=== PATIENT | female | born 1935 | race Caucasian/White ===

== ENCOUNTER → 2016-04-11 | Outpatient (CLI) | payer OTHER ==
--- NOTE | 2016-04-11 17:04 | US ---
Bilateral Duplex Carotid Sonography Clinical Indications: Follow-up carotid plaque. Check for progression. (I65.23) Technique: The cervical portions of the carotid and vertebral arteries were imaged and interrogated by color and pulsed Doppler. Spectral analysis was performed. Findings: Comparison to prior study of May 04, 2014. Right Carotid: The common carotid artery, bifurcation, and origin of the internal and external carot id artery are well imaged. Mild noncalcified plaque is present mid right CCA anteriorly stable in albertina earance. Doppler velocity estimates and color Doppler spectra are normal. Peak ICA systolic veloci ty = 81 cm/sec and diastolic velocity = 23 cm/sec. No evidence of flow-limiting stenosis. There is st able mild partially calcified plaque at the carotid bulb and proximal ICA. Left Carotid: The common carotid artery, bifurcation, and origin of the internal and external caroti d artery are well imaged. Mild noncalcified plaque is noted anteriorly in the CCA without encroachmen t upon the lumen. Doppler velocity estimates and color Doppler spectra are normal. Peak ICA systolic velocity = 75 cm/sec and peak diastolic velocity = 18 cm/sec. No evidence of flow-limiting stenosis. Minimal partially calcified plaque is present at the carotid bulb without encroachment upon the limi gurpreet. Vertebral Arteries: Antegrade flow is shown by pulsed Doppler of each vertebral artery. Incidental complex cystic thyroid nodules as well as simple cystic nodules seen. This has been presen t previously as well. Impression: 1. No evidence of flow-limiting carotid stenosis. No significant change since prior study. 2. Bilateral complex cystic thyroid nodules once again noted. Measurement of carotid stenosis is based on velocity parameters that correlate the residual internal carotid diameter with [place] Symptomatic Carotid Endarterectomy Trial (NASCET) based stenosis levels.
== END ==
LOC: CIMAGING 11:01
PROVIDERS: ATTEND Surgery
DX: I65.23 Occlusion and stenosis of bilateral carotid arteries (principal); E04.2 Nontoxic multinodular goiter
CPT/HCPCS: 93880-PO

== ENCOUNTER → 2016-04-17 | Outpatient (CLI) | payer OTHER ==
--- NOTE | 2016-04-17 14:12 | DX ---
Abdomen Two Views 1318 Hours Indication: Pain and constipation. Technique: Upright and supine views. Comparison: CT abdomen and pelvis dated August 04, 2008. Findings: Moderate to large volume of stool is retained throughout the left and right hemicolon. No d ilated loops of small or large bowel. No organomegaly or mass effect. Surgical clips in the right upp er quadrant are unchanged. Dextrocurvature and moderate multilevel degenerative disk and facet arthro bina are unchanged. Impression: Moderate constipation. No evidence of bowel obstruction.
== END ==
LOC: CIMAGING 13:00
PROVIDERS: ATTEND Surgery
DX: R10.9 Unspecified abdominal pain (principal); K59.00 Constipation, unspecified
CPT/HCPCS: 74020-PO

== ENCOUNTER → 2016-08-05 | Outpatient (CLI) | payer OTHER | LOC: CIMAGING 12:40 | DX: Z12.31 Encounter for screening mammogram for malignant neoplasm of breast (principal); Z85.3 Personal history of malignant neoplasm of breast; R92.1 Mammographic calcification found on diagnostic imaging of breast | CPT/HCPCS: G0202 ==

== ENCOUNTER → 2016-08-22 | Outpatient (CLI) | payer OTHER | LOC: CIMAGING 12:56 | PROVIDERS: ATTEND Internal Medicine Hematology & Oncology | DX: Z12.39 Encounter for other screening for malignant neoplasm of breast (principal); R92.0 Mammographic microcalcification found on diagnostic imaging of breast; Z85.3 Personal history of malignant neoplasm of breast | CPT/HCPCS: G0206 ==

== ENCOUNTER → 2016-10-16 | Outpatient (CLI) | payer OTHER | LOC: CIMAGING 12:05 | PROVIDERS: ATTEND Internal Medicine Hematology & Oncology | DX: R06.02 Shortness of breath (principal); I51.7 Cardiomegaly | CPT/HCPCS: 71020-PO ==

== ENCOUNTER 2016-10-31 14:15 | Inpatient (IN) | payer OTHER ==
[2016-10-31] MEDS ORDERED: D50W 25 GM/50 ML SYR IVP PRN (15:47)
[2016-10-31] MEDS ORDERED: FUROSEMIDE 40 MG/4 ML VIAL IVP ONE (16:14)
[2016-10-31] MEDS ORDERED: ACETAMINOPHEN 325 MG TAB PO PRN (16:15)
[2016-10-31] MEDS ORDERED: TEMAZEPAM 15 MG CAP PO PRN (16:15)
[2016-10-31] MEDS ORDERED: NITROGLYCERIN 0.4 MG BTL SL PRN (16:15)
--- NOTE | 2016-10-31 16:24 | PDCARPN ---
Cardiology Progress Note Chief Complaint: new onset acute sCHF Assessment/Plan: Assessment: 81F PMH T2DM, htn, dyslipidemia, PVD s/p CEA 2011, breast CA with XRT/resection 2013, found to have LVEF 20-25%. New onset of dyspnea over past few months which has progressed to dyspnea at rest. Office note from today acts as H&P. #. NYHA FC IV with LVEF 20-25% on echo: start IV lasix reducing Losartan dose to allow room to titrate Carvedilol L/RHC for further evaluation #. DM: hold Metformin but continue home Lantus SSI with BS AC/HS #. PVD: followed by Dr. Villeda #. htn: follow #. FRANKY/CPAP: continue CPAP while hospitalized #. Inpt status: required for further delineation of new disease state with R/ LHC and titration of medications and use of IV lasix #. DVT ppx: on hold until after catheterization 10/31/16 16:18 Objective: Vital Signs (8 Hrs) Temp Pulse Resp BP Pulse Ox 10/31/16 15:17 97.9 F 111 H 17 134/85 H 96 Intake/Output (24 Hrs) 10/30/16 10/31/16 11/01/16 05:59 05:59 05:59 Other: Weight 63.957 kg ICD10 Worksheet Patient Problems: Problems Problem Status Onset Breast cancer metastasized to axillary lymph node Acute
[2016-10-31] MEDS ORDERED: NON-FORMULARY NEW DRUG (Polyvinyl Alcohol/Povidone/Pf [Refresh Classic Eye Drops] 1 EACH) OP PRN (16:43)
[2016-10-31] MEDS ORDERED: TEARS/DEXTRAN 70/HYPROMELLOSE 15 ML OPHT.BTL EACHEYE PRN (16:50)
[2016-10-31 16:55] LABS: % IMMATURE GRANULYOCYTES 0.3 % (0.0-1.1); ABSOLUTE IMMATURE GRANULOCYTES 0.02 10^3/uL (0.00-0.10); ADD DIFF? NO; ADD MORPH? NO; ADD SCAN? NO; ATYPICAL LYMPHOCYTE FLAG 10 (0-99); FRAGMENT RBC FLAG 0 (0-99); HEMATOCRIT 40.8 % (38.0-47.0); HEMOGLOBIN 13.4 g/dL (12.6-16.3); LEFT SHIFT FLG 0 (0-99); LIPEMIA HEMOLYSIS FLAG 80 (0-99); MEAN CELL HEMOGLOBIN 33.1 pg (27.9-34.1); MEAN CELL HEMOGLOBIN CONCENTR. 32.8 g/dL (32.4-36.7); MEAN CELL VOLUME 100.7 fL (81.5-99.8); MEAN PLATELET VOLUME 11.5 fL (8.7-11.7); PLATELET CLUMPS FLAG 0 (0-99); PLATELET COUNT 200 10^3/uL (150-400); RED BLOOD CELL COUNT 4.05 10^6/uL (4.18-5.33); RED CELL DISTRIBUTION WIDTH 12.6 % (11.5-15.2)
[2016-10-31] MEDS ORDERED: D10W 250 ML PRN HYPOGLYCEMIA IV (17:00)
[2016-10-31] MEDS: GLIMEPIRIDE 2 MG TAB PO SCH (17:15)
[2016-10-31] MEDS: CARVEDILOL 3.125 MG TAB PO SCH (17:15)
[2016-10-31] MEDS: ASPIRIN 81 MG CHEWABLE TAB PO SCH (17:17)
[2016-10-31 17:33] LABS: ALANINE AMINOTRANSFERASE 36 IU/L (9-52); ALBUMIN 4.1 g/dL (3.5-5.0); ALKALINE PHOSPHATASE 91 IU/L (38-126); ANION GAP 12 mEq/L (8-16); ASPARTATE AMINOTRANSFERASE 25 IU/L (14-46); BILIRUBIN,TOTAL 0.6 mg/dL (0.1-1.4); CARBON DIOXIDE 27 mEq/l (22-31); CHLORIDE 101 mEq/L (97-110); GLOMERULAR FILTRATION RATE 53; GLUCOSE 76 mg/dL (70-100); POTASSIUM 3.6 mEq/L (3.5-5.2); SODIUM 140 mEq/L (134-144); TOTAL PROTEIN 7.1 g/dL (6.3-8.2)
[2016-10-31 17:42] LABS: % SATURATION 14 % (20-55); TOTAL IRON BINDING CAPACITY 351 ug/dL (260-490)
[2016-10-31] MEDS: INSULIN LISPRO 100 UNIT/ML SC SCH (18:04)
[2016-10-31] MEDS ORDERED: VENLAFAXINE XR 150 MG CAP PO SCH (21:00)
[2016-10-31] MEDS ORDERED: INSULIN ASPART 15 UNIT SC SCH (21:00)
[2016-10-31] MEDS: INSULIN GLARGINE 100 UNITS/ML SYRINGE SC SCH (21:52)
[2016-10-31] MEDS: VENLAFAXINE XR 150 MG CAP PO SCH (21:52)
[2016-10-31] MEDS: INSULIN REGULAR HUMAN 100 UNIT/ML SC SCH (23:47)
[2016-11-01 04:08] LABS: % IMMATURE GRANULYOCYTES 0.3 % (0.0-1.1); ABSOLUTE IMMATURE GRANULOCYTES 0.02 10^3/uL (0.00-0.10); ADD DIFF? NO; ADD MORPH? NO; ADD SCAN? NO; ATYPICAL LYMPHOCYTE FLAG 0 (0-99); FRAGMENT RBC FLAG 0 (0-99); HEMOGLOBIN 13.1 g/dL (12.6-16.3); LEFT SHIFT FLG 0 (0-99); LIPEMIA HEMOLYSIS FLAG 80 (0-99); MEAN CELL HEMOGLOBIN 32.4 pg (27.9-34.1); MEAN CELL HEMOGLOBIN CONCENTR. 32.8 g/dL (32.4-36.7); MEAN PLATELET VOLUME 11.4 fL (8.7-11.7); PLATELET CLUMPS FLAG 10 (0-99); PLATELET COUNT 202 10^3/uL (150-400); RED BLOOD CELL COUNT 4.04 10^6/uL (4.18-5.33); RED CELL DISTRIBUTION WIDTH 12.5 % (11.5-15.2)
[2016-11-01 04:17] LABS: INR 1.11 (0.83-1.16); PROTIME(PATIENT) 14.2 SEC (12.0-15.0)
[2016-11-01 04:18] LABS: APTT 29.5 SEC (23.0-38.0)
[2016-11-01 04:20] LABS: ANION GAP 14 mEq/L (8-16); CALCIUM 9.5 mg/dL (8.5-10.4); CARBON DIOXIDE 24 mEq/l (22-31); CHLORIDE 102 mEq/L (97-110); CHOLESTEROL 127 mg/dL (140-220); CHOLESTEROL/HDL RATIO 3.34 RATIO (1.00-4.44); CREATININE 0.9 mg/dL (0.6-1.0); GLOMERULAR FILTRATION RATE > 60; GLUCOSE 98 mg/dL (70-100); HIGH DENSITY LIPOPROTEIN 38 mg/dL (40-85); LDL/HDL RATIO 1.63 RATIO (1.00-3.22); LOW DENSITY LIPOPROTEIN 62 mg/dL (80-100); MAGNESIUM 1.3 mg/dL (1.6-2.3); NON-HIGH DENSITY LIPOPROTEIN 89 mg/dL (90-129); POTASSIUM 3.2 mEq/L (3.5-5.2); SODIUM 140 mEq/L (134-144); TRIGLYCERIDE 136 mg/dL (35-135); VERY LOW DENSITY LIPOPROTEINS 27 mg/dL (8-25)
[2016-11-01] MEDS ORDERED: diphenhydrAMINE 25 MG CAP PO ONE ×2 (06:00→09:00)
[2016-11-01] MEDS ORDERED: DIAZEPAM 5 MG TAB PO ONE ×2 (06:00→09:00)
[2016-11-01] MEDS ORDERED: ASPIRIN EC 325 MG TAB PO ONE ×2 (06:00→09:00)
[2016-11-01] MEDS ORDERED: NS 1,000 ML IV ONE (06:00)
[2016-11-01] MEDS ORDERED: PROTOCOL MAGNESIUM 1 DOSE IV PRN (08:42)
[2016-11-01] MEDS ORDERED: PROTOCOL POTASSIUM 1 DOSE MISC PRN (08:42)
[2016-11-01] MEDS ORDERED: LIDOCAINE 1% 300 MG/30 ML SDV ONE (08:45)
[2016-11-01] MEDS ORDERED: IOPAMIDOL (ISOVUE-370) 150 ML BTL IV ONE (08:46)
[2016-11-01] MEDS ORDERED: MIDAZOLAM 2 MG/2 ML VIAL ONE (08:46)
[2016-11-01] MEDS ORDERED: fentaNYL 100 MCG/2 ML INJ ONE (08:46)
[2016-11-01] MEDS ORDERED: POTASSIUM CL 10 MEQ TAB PO ONE ×2 (08:53→20:19)
[2016-11-01] MEDS ORDERED: MAGNESIUM SULF 2 GM/WATER 50 ML IV ONE (08:54)
[2016-11-01] MEDS ORDERED: LOSARTAN POTASSIUM 50 MG TAB PO SCH (09:00)
[2016-11-01] MEDS ORDERED: VENLAFAXINE XR 150 MG CAP PO SCH (09:00)
--- NOTE | 2016-11-01 09:00 | PDCARPN ---
Cardiology Progress Note Assessment/Plan: Assessment/plan: 81-year-old female with multiple cardiac risk factors including diabetes, hypertension, carotid arterial disease status post carotid endarterectomy in 2012. She is admitted from [facility] with several weeks of new onset dyspnea and found to have an abnormal echocardiogram with an ejection fraction of 20%. She has been started on Coreg, her losartan has been continued, IV Lasix has been initiated. 1. Acute systolic heart failure: Etiology unknown. TSH normal. Iron studies not suggestive of hemochromatosis. Would be concerned about coronary disease with her multiple risk factors. Diagnostic right and left heart catheterization today. Continue aspirin and statin. Beta-imelda has been added. Continue angiotensin receptor imelda. Continue IV Lasix. Replete electrolytes. 2. Nonsustained VT. Cooler tachycardia on telemetry: Replete electrolytes. Continue Coreg. She may require LifeVest therapy during her medical optimization time period. 3. Diabetes: She is on her usual home medications except for metformin which has been on hold for heart catheterization. 4. Hypertension: Currently well controlled. 5. Dyslipidemia: On statin. LDL at goal. 6. Peripheral vascular disease: History of carotid endarterectomy. Followed by Dr. Villeda. Continue medical management. 7. History of breast cancer: She had radiation, surgical resection, and is now on anastrozole. Based on Dr. Reddy's notes, I do not see that she had potentially cardiotoxic chemotherapy. 8. Sleep apnea: Continue CPAP. 11/01/16 09:04 Subjective: Kim notes slightly improved dyspnea with diuresis overnight. She complains of chronic nausea without vomiting, abdominal pain or diarrhea. Reviewed/Discussed With: family, multidisciplinary team Objective: Vital Signs (8 Hrs) Temp Pulse Resp BP Pulse Ox 11/01/16 08:00 36.8 C 83 16 107/70 93 11/01/16 03:50 36.7 C 86 20 103/65 90 L Intake/Output (24 Hrs) 10/31/16 11/01/16 11/02/16 05:59 05:59 05:59 Intake Total 200 Output Total 1600 Balance -1400 Intake: Oral (ml) 200 Output: Urine (ml) 1600 Toilet 1600 Other: Weight 61.3 kg No acute distress. Lying flat in bed. JVP less than 10. Regular rate and rhythm without murmur rub or gallop Lungs clear auscultation bilaterally without wheezes rhonchi or rale Abdomen soft nontender nondistended without bruits masses or hepatosplenomegaly Extremities are warm and well perfused without cyanosis clubbing or edema Result Diagrams: 11/01/16 03:17 11/01/16 03:17 Telemetry: NSR. Frequent PVCs with ventricular couplets and a 4 beat run of nonsustained VT ICD10 Worksheet Patient Problems: Problems Problem Status Onset Breast cancer metastasized to axillary lymph node Acute
[2016-11-01] MEDS: CARVEDILOL 3.125 MG TAB PO SCH (09:01)
[2016-11-01] MEDS: INSULIN LISPRO 100 UNIT/ML SC SCH ×3 (09:02→19:08)
[2016-11-01] MEDS: GLIMEPIRIDE 2 MG TAB PO SCH ×2 (09:11→19:08)
[2016-11-01] MEDS: POTASSIUM Cl (KCl) 100 ML IV SCH ×4 (09:12→19:29)
[2016-11-01] MEDS: ASPIRIN 81 MG CHEWABLE TAB PO SCH (09:23)
[2016-11-01] MEDS: VENLAFAXINE XR 150 MG CAP PO SCH ×2 (09:31→20:35)
[2016-11-01] MEDS: ROSUVASTATIN CALCIUM 10 MG TAB PO SCH (09:34)
[2016-11-01] MEDS: ANASTROZOLE 1 MG TAB PO SCH (09:34)
[2016-11-01] MEDS ORDERED: DOPamine/DEXTROSE/250 ML BAG IV ONE (11:31)
[2016-11-01] MEDS ORDERED: ATROPINE SULFATE 1 MG/10 ML SYR IVP PRN (12:14)
--- NOTE | 2016-11-01 12:22 | PDDXCAT ---
Diagnostic Cath Note - . Date: 11/01/16 Cake Puller: Nita Indication: other (new onset systolic CHF) - Procedure Access: right groin Procedure: left heart catheterization, coronary angiography, left ventriculogram , right heart catheterization - Materials Left Heart Cath size: 6F Left Heart Cath materials: standard multipack (JL4, JR4, pigtail) Right Heart Cath size: 7F Right Heart Cath materials: PWP catheter - Findings-Left Heart Catheterization LM: normal LAD: diffusely diseased. Serial 70% lesions throughout. D1 90% ostial LCX: diffusely diseased; 60% mid vessel. Diffusely diseased OM1, serial 50% RCA: dominant. RCA distal 70% at bifurcation to PDA EDP: 22 LVEF: 20 Wall motion: global diffuse HK - Findings-Right Heart Catheterization RA: 11 RV: 35/7 PA: 36/13 mean 22 PAOP: 18 AO: 80/44 CO: 2.88 L/min CI: 1.81 L/min/m2 Complications: hypotension requiring dopamine Estimated blood loss: <50ml Closure method: Angioseal Assessment: 1. Diffuse and severe LAD/Diagonal disease. 2. Moderate LCx/OM and RCA disease. 3. Severe CMP and elevated LV filling pressures. 4. Hypotension Plan: CT surgical consult Transfer to ICU for dopamine titration and diuresis Hold coreg Patient Problems: Problems Problem Status Onset Breast cancer metastasized to axillary lymph node Acute
[2016-11-01] MEDS ORDERED: ONDANSETRON 4 MG/2 ML VIAL ONE (12:31)
[2016-11-01] MEDS: ONDANSETRON 4 MG/2 ML VIAL IVP PRN ×2 (13:16→18:24)
[2016-11-01] MEDS ORDERED: ALBUMIN 25% 100 ML SOLN IV ONE (14:24)
[2016-11-01] MEDS ORDERED: NOREPINEPHRINE/NS 4 MG/500 ML BAG IV ONE (14:24)
[2016-11-01 14:40] LABS: % IMMATURE GRANULYOCYTES 0.3 % (0.0-1.1); ABSOLUTE IMMATURE GRANULOCYTES 0.02 10^3/uL (0.00-0.10); ADD DIFF? NO; ADD MORPH? NO; ADD SCAN? NO; ATYPICAL LYMPHOCYTE FLAG 0 (0-99); FRAGMENT RBC FLAG 0 (0-99); HEMATOCRIT 36.8 % (38.0-47.0); LEFT SHIFT FLG 0 (0-99); LIPEMIA HEMOLYSIS FLAG 80 (0-99); MEAN CELL HEMOGLOBIN 32.6 pg (27.9-34.1); MEAN CELL HEMOGLOBIN CONCENTR. 32.6 g/dL (32.4-36.7); MEAN PLATELET VOLUME 11.4 fL (8.7-11.7); PLATELET CLUMPS FLAG 20 (0-99); PLATELET COUNT 205 10^3/uL (150-400); RED BLOOD CELL COUNT 3.68 10^6/uL (4.18-5.33); RED CELL DISTRIBUTION WIDTH 12.3 % (11.5-15.2)
[2016-11-01] MEDS: FUROSEMIDE 40 MG/4 ML VIAL IVP SCH ×2 (14:51→14:56)
[2016-11-01] MEDS: INSULIN GLARGINE 100 UNITS/ML SYRINGE SC SCH ×2 (14:51→20:42)
--- NOTE | 2016-11-01 15:07 | CPEKG ---
Heart Rate: 85 RR Interval: 706 P-R Interval: 208 QRSD Interval: 108 QT Interval: 412 QTC Interval: 490 P Greenwood: 60 QRS Greenwood: -62 T Wave Greenwood: 111 EKG Severity - ABNORMAL ECG - EKG Impression: SINUS RHYTHM EKG Impression: MULTIPLE VENTRICULAR PREMATURE COMPLEXES EKG Impression: LEFT ANTERIOR FASCICULAR BLOCK EKG Impression: PROBABLE LVH WITH SECONDARY REPOL ABNRM EKG Impression: BORDERLINE PROLONGED QT INTERVAL Electronically Signed By: Patric Ochoa 01-Nov-2016 22:21:37
[2016-11-01] MEDS ORDERED: ALBUMIN 25% 100 ML IV ONE (15:15)
--- NOTE | 2016-11-01 15:24 | GCON ---
[f rep st] CONSULTATION CRITICAL CARE CONSULT DATE OF CONSULTATION: 11/01/2016 HISTORY OF PRESENT ILLNESS: The patient is an 81-year-old female with a history of carotid disease, hypertension, hyperlipidemia, who was found to have a dilated cardiomyopathy on echocardiogram, for workup of 3-4 months of exertional dyspnea. Her ejection fraction was found to be 15% to 20% on ec ho done yesterday, so she was admitted to [facility] today for cardiac catheterization. Apparently, her bl ood pressure dropped in the middle of the cath, she was found to have severe coronary artery disease , and is likely to require bypass grafting. In any case, she was brought to the intensive care unit , and has had a labile blood pressure since. She did require dopamine as high as 15 mcg, but still had a blood pressure as low as the 70s. She is asymptomatic and denies lightheadedness, presyncope, chest pain or shortness of breath. She has had no pain other than chronic back pain, but nothing h as been different otherwise. REVIEW OF SYSTEMS: She denies any recent infections, cough, sputum production, or hemoptysis, or ch kim in her medications. PAST MEDICAL HISTORY: 1. Breast cancer, diagnosed in 2013, treated with lumpectomy and radiation therapy. 2. Carotid artery disease. 3. Depression. 4. Diabetes. 5. Hypertension. 6. Hyperlipidemia. 7. Pancreatitis. 8. Peripheral vascular disease. 9. Obstructive sleep apnea. Reportedly on CPAP. 10. Meniere disease. 11. Iron deficiency anemia. PAST SURGICAL HISTORY: 1. Lumpectomy, as described above. 2. Cataracts. 3. Cholecystectomy. 4. Hysterectomy. SOCIAL HISTORY: She is a nonsmoker. No alcohol or IV drug use. FAMILY HISTORY: Noncontributory at this time. CURRENT MEDICATIONS: Include Tylenol, Arimidex, aspirin, carvedilol which was given at 0900, Lasix which has not been given, Amaryl, Lantus, Humalog, Cozaar, Zofran, Crestor, Restoril, Effexor. ALLERGIES: Penicillin. EXAM: VITAL SIGNS: She has been afebrile, as I said, blood pressure was 70/40 at the time I was ca lled into the room, despite dopamine drip at 15 mcg. She is currently at about 90/50, heart rate 83 , appears to be in sinus rhythm, with premature ventricular contractions, but no ST elevations at le ast on her monitor. Respirations 16, oxygen saturation 93% on 2 L. GENERAL: She was an obese woman, who was awake and alert, and oriented x3, and able to speak in full sentences without using accessory muscles for león thing. HEENT: Pupils equally round and reactive to light. Nonicteric and noninjected. Mucous mem branes are moist without erythema or exudate. NECK: Supple without adenopathy or jugular vein dist ention. Breath sounds were clear to auscultation bilaterally without wheezes, rubs or rales. HEART : Regular rate and rhythm, but sounds were somewhat distant. I did not detect any rubs or gallops. ABDOMEN: Soft, nontender, nondistended, without hepatosplenomegaly. EXTREMITIES: Show no clubbing, cyanosis, or edema. Her right groin site is clean and intact withou t evidence of hematoma. There is no costovertebral angle tenderness. NEUROLOGIC: Nonfocal, includ ing cranial nerves, deep tendon reflexes. SKIN: Warm and dry without evidence of rash. OBJECTIVE DATA: Includes a white count of 7.5, hematocrit 36.8, platelets at 205. Labs from this m orning showed essentially normal BMP, except for a potassium of 3.2, which has been replaced. ASSESSMENT AND PLAN: 1. Hypotension. I suspect it is hypovolemia. She did have a small pericardial effusion on her pre vious echo from yesterday, but appears to have had an acute drop, likely related to the sedation inv olved with the procedure. I will start with albumin short-term and see how she responds to that. T he dopamine does not appear to be working at this concentration, I will change that to Levophed and monitor as best that we can. An EKG and chest x-ray are also pending at this time. I can send a tr oponin, but my concern for an acute coronary syndrome is quite low, particularly in the absence of s ymptoms. I do not see any evidence of sepsis or adrenal insufficiency either. We are working on not ifying cardiology, and we will consider a repeat echocardiogram to see if her pericardial effusion h as gotten any worse. 2. Obstructive sleep apnea. She should continue with her CPAP that she uses at home and oxygen as needed. 3. Coronary artery disease. She will eventually require a CT surgery consult. A total of about 40 minutes of critical care time was required for this patient with life-threatenin g hypotension. /[id number]/MODL
[2016-11-01] MEDS ORDERED: NOREPINEPHRINE/NS 500 ML IV SCH (15:30)
[2016-11-01 15:39] LABS: TROPONIN I 0.045 ng/mL (0.000-0.034)
[2016-11-01] MEDS: INSULIN REGULAR HUMAN 100 UNIT/ML SC SCH ×2 (16:10→20:46)
--- NOTE | 2016-11-01 18:09 | GCON ---
[f rep st] CONSULTATION DATE OF CONSULTATION: 11/01/2016 Patient was seen at the request of Dr. Moya with the patient's permission. The patient's daughter and son were present. IMPRESSION: 1. Ischemic cardiomyopathy with severe 3-vessel disease and class 3 congestive heart failure on admission. 2. Mild obesity. 3. Breast cancer with radiation therapy, 3 years without recurrence. 4. Type 2 diabetes. 5. Carotid artery disease, status post carotid endarterectomy without residual obstruction. 6. Hypertension, controlled. RECOMMENDATIONS: This patient should undergo coronary artery revascularization. Her risk is increased because of age, low ejection fraction and previous carotid disease. Overall risk is in the 6% range. Risk for stroke is 3% to 5%. The patient and daughter and son were in agreement for surgery. I will meet with the in the morning to discuss it as well. CHIEF COMPLAINT: A 77-year-old female who had progressive dyspnea on exertion. She was referred by her oncologist to follow serially on a periodic basis for breast cancer without known recurrence. He referred her to Cardiology who performed an echocardiogram which revealed ejection fraction of 20%. She was sent to the hospital with no known history of that and admitted for evaluation. Because of her dyspnea on exertion she underwent diagnostic left heart catheterization after beginning medications for congestive heart failure. During the catheterization she became somewhat hypotensive, likely due to sedation, diuresis and new onset of beta imelda exposure and was started on dopamine. She was transferred to the ICU where she is now currently stable. Catheterization revealed severe diffuse 3-vessel disease with small vessels and ejection fraction of 15% to 20%. The LVEDP was 18. PREVIOUS SURGERIES: Include carotid endarterectomy, hysterectomy, and cholecystectomy. MEDICATIONS: On admission were metformin, Lantus, NovoLog, Protonix, _ and Crestor. She also was started on losartan and Coreg. ALLERGIES: Penicillin and Vicodin. SOCIAL HISTORY: She never smoked. She drinks alcohol on an occasional social basis and is retired. She has a large well-informed supportive family. REVIEW OF SYSTEMS: All 10 systems were reviewed and except for chief complaint unremarkable. PHYSICAL EXAMINATION: GENERAL: A slightly overweight, elderly female in no apparent distress. Fully alert, very pleasant and cooperative. NECK: She has a well-healed endarterectomy scar. She has bilateral bruits. HEART: Rate is regular without murmur. LUNGS: Clear. ABDOMEN: Soft, nontender. Bowel sounds are active. RECTAL AND GENITAL: Deferred. NEUROLOGICAL: Grossly intact. Please see catheterization report for details. /[id number]/MODL MTDD
[2016-11-01] MEDS ORDERED: ALBUMIN 5% 250 ML IV ONE (18:30)
[2016-11-01 19:26] LABS: POTASSIUM 3.3 mEq/L (3.5-5.2)
[2016-11-02 05:15] LABS: HEMATOCRIT 36.1 % (38.0-47.0); HEMOGLOBIN 11.8 g/dL (12.6-16.3); MEAN CELL HEMOGLOBIN 33.1 pg (27.9-34.1); MEAN CELL HEMOGLOBIN CONCENTR. 32.7 g/dL (32.4-36.7); MEAN CELL VOLUME 101.1 fL (81.5-99.8); RED BLOOD CELL COUNT 3.57 10^6/uL (4.18-5.33); RED CELL DISTRIBUTION WIDTH 12.3 % (11.5-15.2)
[2016-11-02 05:24] LABS: ANION GAP 14 mEq/L (8-16); CALCIUM 9.1 mg/dL (8.5-10.4); CARBON DIOXIDE 26 mEq/l (22-31); CHLORIDE 100 mEq/L (97-110); CREATININE 1.1 mg/dL (0.6-1.0); GLOMERULAR FILTRATION RATE 48; GLUCOSE 119 mg/dL (70-100); MAGNESIUM 1.9 mg/dL (1.6-2.3); POTASSIUM 4.2 mEq/L (3.5-5.2); SODIUM 140 mEq/L (134-144)
[2016-11-02] MEDS ORDERED: IPRATROPIUM/ALBUTEROL 3 ML DEYVIAL ONE (08:00)
[2016-11-02] MEDS ORDERED: ENOXAPARIN 40 MG/0.4 ML SYR SC SCH (09:00)
[2016-11-02] MEDS: ANASTROZOLE 1 MG TAB PO SCH (09:13)
[2016-11-02] MEDS: ROSUVASTATIN CALCIUM 10 MG TAB PO SCH (09:13)
[2016-11-02] MEDS: ASPIRIN 81 MG CHEWABLE TAB PO SCH (09:13)
[2016-11-02] MEDS: VENLAFAXINE XR 150 MG CAP PO SCH ×2 (09:13→20:32)
[2016-11-02] MEDS: FUROSEMIDE 40 MG/4 ML VIAL IVP SCH (09:14)
[2016-11-02] MEDS: INSULIN GLARGINE 100 UNITS/ML SYRINGE SC SCH ×2 (09:14→22:19)
[2016-11-02] MEDS: GLIMEPIRIDE 2 MG TAB PO SCH ×2 (09:14→19:09)
--- NOTE | 2016-11-02 09:14 | PDINTPN ---
Bilingual Customer Service Specialist Progress Note Assessment/Plan: Assessment/plan: 81 F found to have EF 15-20% on echo for dyspnea work-up, taken to cath 11/01 and found severe CAD but developed hypotension during cath and recovered in ICU. Her BP was labile but had no evidence of sepsis or acute coronary syndrome at the time. She responded well to fluid challenge (so not likely adrenal) and never needed pressors. * Hypotension- most consistent with volume. Responded well to albumin without causing CHF symptoms or O2 requirement. No evidence of blood loss, sepsis, ACS, adrenal. * FRANKY- used CPAP overnight. She should bring this with her for her upcoming CABG * CAD- planning CABG in the near future with Dr. Bustillo. * DM- currently stable; can resume home meds Subjective: feels well and slept without difficulty Objective: Vital Signs Temp Pulse Resp BP Pulse Ox 36.5 C 77 17 98/59 L 100 11/02/16 05:00 11/02/16 07:00 11/02/16 07:00 11/02/16 07:00 11/02/16 07:00 Laboratory Results 11/02/16 05:00 11/02/16 05:00 11/01/16 11/02/16 11/03/16 05:59 05:59 05:59 Intake Total 200 1342 Output Total 1600 925 Balance -1400 417 PT 14.2 SEC (12.0-15.0) 11/01/16 03:17 INR 1.11 (0.83-1.16) 11/01/16 03:17 Physical Exam - Physical Exam General Appearance: WD/WN, alert, obese EENT: PERRL/EOMI Neck: supple Respiratory: lungs clear, normal breath sounds, No respiratory distress Cardiac/Chest: normal peripheral pulses, regular rate, rhythm, No edema Abdomen: non-tender, soft, No distended Skin: normal color, warm/dry Lymphatic: no adenopathy Extremities: normal inspection, No pedal edema Neuro/Psych: alert, normal mood/affect, oriented x 3 ICD10 Worksheet Patient Problems: Problems Problem Status Onset Breast cancer metastasized to axillary lymph node Acute
[2016-11-02] MEDS: INSULIN LISPRO 100 UNIT/ML SC SCH ×3 (09:15→19:06)
[2016-11-02] MEDS: INSULIN REGULAR HUMAN 100 UNIT/ML SC SCH ×2 (09:15→22:19)
[2016-11-02] MEDS ORDERED: ALBUMIN 5% 250 ML BOTTLE IV ONE (10:33)
--- NOTE | 2016-11-02 10:53 | PDCARPN ---
Cardiology Progress Note Assessment/Plan: Assessment/plan: 81-year-old female with multiple cardiac risk factors including diabetes, hypertension, carotid arterial disease status post carotid endarterectomy in 2011. She is admitted from [facility] with several weeks of new onset dyspnea and found to have an abnormal echocardiogram with an ejection fraction of 20%. She has been started on Coreg, her losartan has been continued, IV Lasix has been initiated. 1. Acute systolic heart failure: ischemic CMP. 3VD with worse LAD diseae on cath 11/01. Continue aspirin and statin. Beta-imelda was not tolerated due to hypotension. Continue angiotensin receptor imelda. Hold IV Lasix. Replete electrolytes. 2. Multivessel CAD: plan for CABG 11/03 3. Nonsustained VT. Replete electrolytes. Did not tolerate coreg. Revascularization 4. Diabetes: She is on her usual home medications except for metformin which has been on hold for heart catheterization. 5. Hypertension: now hypotensive likely due to diuresis/BB. 6. Dyslipidemia: On statin. LDL at goal. 7. Peripheral vascular disease: History of carotid endarterectomy. Followed by Dr. Villeda. Continue medical management. 8. History of breast cancer: She had radiation, surgical resection, and is now on anastrozole. Based on Dr. Reddy's notes, I do not see that she had potentially cardiotoxic chemotherapy. 9. Sleep apnea: Continue CPAP. 11/02/16 10:57 Subjective: No CP. Mild SOB Reviewed/Discussed With: family, multidisciplinary team, other (Dr. Yu and Dr. Bustillo) Objective: Vital Signs (8 Hrs) Temp Pulse Resp BP Pulse Ox 11/02/16 07:00 77 17 98/59 L 100 11/02/16 06:00 81 14 91/49 L 97 11/02/16 05:00 36.5 C 85 15 102/63 95 11/02/16 03:00 89 15 102/54 L 99 Intake/Output (24 Hrs) 11/01/16 11/02/16 11/03/16 05:59 05:59 05:59 Intake Total 200 1342 Output Total 1600 925 Balance -1400 417 Intake: Oral (ml) 200 500 IV Intake (ml) 100 IV Infused (ml) 742 Albumin 25% 100 ml @ As 600 Directed IV ONCE ONE Rx#: [id number] DOPamine/DEXTROSE 250 ml 142 @ Titrate IV CONT NICOLLE Rx# :[id number] Output: Urine (ml) 1600 925 Bedpan 925 Toilet 1600 Other: Weight 61.3 kg NAD JVP 12 RRR no m/r/g Rales left base No edema right groin no hematoma, ecchymoses, or bruit Result Diagrams: 11/02/16 05:00 11/02/16 05:00 Cardiac Labs: Cardiac Lab Results (72 Hrs) 11/01/16 15:00 Troponin I 0.045 H Telemetry: SR with frequent V ectopy including V triplet ICD10 Worksheet Patient Problems: Problems Problem Status Onset Breast cancer metastasized to axillary lymph node Acute
[2016-11-02] MEDS ORDERED: METOPROLOL TARTRATE 5 MG/5 ML INJ IVP ONE (11:45)
[2016-11-02] MEDS ORDERED: ALBUMIN 5% 250 ML IV ONE (12:00)
[2016-11-02 19:14] LABS: POTASSIUM 3.6 mEq/L (3.5-5.2)
[2016-11-02] MEDS ORDERED: POTASSIUM CL 10 MEQ TAB PO ONE (20:35)
[2016-11-02] MEDS ORDERED: CHLORHEXIDINE GLUC HIBICLENS 118 ML BTL TP SCH (21:00)
[2016-11-02] MEDS: MUPIROCIN 2% 22 GM OINT NS SCH (22:20)
--- NOTE | 2016-11-03 01:23 | GOP ---
[f rep st] OPERATIVE REPORT DATE OF OPERATION: 11/02/2016 SURGEON: Parish Lewis MD DATA REPORTING ANALYST: None. ANESTHESIA: Local anesthetic. PREOPERATIVE DIAGNOSIS: Need for ongoing fluids and medications. POSTOPERATIVE DIAGNOSIS: Need for ongoing fluids and medications. PROCEDURE PERFORMED: Ultrasound-guided right internal jugular central catheter placement. FINDINGS: Successful cannulation of the right IJ via Seldinger technique. Triple-lumen CVC successfully placed. SPECIMENS: None. ESTIMATED BLOOD LOSS: 5 cc. DESCRIPTION OF PROCEDURE: The patient was greeted in the intensive care unit. After explaining the risks, benefits, alternatives, consent was signed. Prior to proceeding, a [employer] time-out was performed. Her right neck was then prepped and draped in typical sterile fashion. I identified the right internal jugular vein with ultrasound guidance and successfully cannulated it. Prior to this, I anesthetized the area with 1% lidocaine. Once successfully in the vein, I ran my guidewire, which went smooth, and then I serially dilated and placed my central venous catheter within the vein. It withdrew and flushed appropriately. It was attached to the skin with an interrupted silk suture. A Biopatch and a sterile dressing were placed. The patient tolerated the procedure well without any intraoperative complications. DRAINS: None. /[id number]/MODL MTDD
[2016-11-03 02:35] LABS: HEMOGLOBIN A1C 7.3 % (4.0-6.0)
[2016-11-03 04:53] LABS: ANION GAP 12 mEq/L (8-16); CALCIUM 8.9 mg/dL (8.5-10.4); CARBON DIOXIDE 28 mEq/l (22-31); CHLORIDE 98 mEq/L (97-110); GLOMERULAR FILTRATION RATE 53; GLUCOSE 53 mg/dL (70-100); POTASSIUM 3.8 mEq/L (3.5-5.2); SODIUM 138 mEq/L (134-144)
[2016-11-03] MEDS ORDERED: niCARdipine/NACL/200 ML BAG IV ONE (06:35)
[2016-11-03] MEDS ORDERED: MILRINONE/DEXTROSE/100 ML BAG IV ONE (06:35)
[2016-11-03] MEDS ORDERED: ALBUMIN 5% 250 ML BOTTLE IV ONE (06:35)
[2016-11-03] MEDS ORDERED: CALCIUM CHLORIDE 1 GM/10 ML INJ ONE (06:35)
[2016-11-03] MEDS ORDERED: AMINOCAPROIC ACID 5 GM/20 ML VIAL ONE ×3 (06:35→13:18)
[2016-11-03] MEDS ORDERED: NA BICARBONATE 50 MEQ/50 ML VIAL ONE (06:35)
[2016-11-03] MEDS ORDERED: LIDOCAINE 2% 100 MG/5 ML SYR ONE (06:35)
[2016-11-03] MEDS ORDERED: DOPamine/DEXTROSE/250 ML BAG IV ONE (06:35)
[2016-11-03] MEDS ORDERED: POTASSIUM Cl (KCl) 20 MEQ/50 ML BAG IV ONE (06:35)
[2016-11-03] MEDS ORDERED: PROTAMINE SULFATE 50 MG/5 ML VIAL IVP ONE (06:35)
[2016-11-03] MEDS ORDERED: methylPREDNISolone SOD SUCC 1 GM/8 ML VIAL ONE (06:36)
[2016-11-03] MEDS ORDERED: HEPARIN 10,000 UNIT/10 ML MDV ONE (06:36)
[2016-11-03] MEDS ORDERED: ADENOSINE 6 MG/2 ML VIAL ONE (06:36)
[2016-11-03] MEDS ORDERED: AMIODARONE HCL 150 MG/3 ML VIAL ONE (06:36)
[2016-11-03] MEDS ORDERED: CITRATE DEXTROSE SOLN 500 ML BAG ONE (06:36)
[2016-11-03] MEDS ORDERED: MAGNESIUM SULFATE 1 GM/2 ML VIAL ONE (06:36)
[2016-11-03] MEDS ORDERED: POTASSIUM Cl (KCl) 50 ML IV ONE (08:07)
[2016-11-03] MEDS: GLIMEPIRIDE 2 MG TAB PO SCH (08:40)
[2016-11-03] MEDS: INSULIN LISPRO 100 UNIT/ML SC SCH ×2 (08:40→14:16)
[2016-11-03] MEDS: INSULIN REGULAR HUMAN 100 UNIT/ML SC SCH (08:41)
[2016-11-03] MEDS: ASPIRIN 81 MG CHEWABLE TAB PO SCH (08:41)
[2016-11-03] MEDS: INSULIN GLARGINE 100 UNITS/ML SYRINGE SC SCH (08:41)
[2016-11-03] MEDS: ANASTROZOLE 1 MG TAB PO SCH (08:41)
[2016-11-03] MEDS: MUPIROCIN 2% 22 GM OINT NS SCH ×2 (08:42→23:41)
[2016-11-03] MEDS: VENLAFAXINE XR 150 MG CAP PO SCH (08:43)
[2016-11-03] MEDS: ROSUVASTATIN CALCIUM 10 MG TAB PO SCH (08:43)
--- NOTE | 2016-11-03 11:27 | PDANEPAE ---
ANE History of Present Illness 81 yo for CABG Ischemic cardiomyopathy, EF 15% ANE Past Medical History - Cardiovascular History Hx Hypertension: Yes Hx Arrhythmias: No Hx Chest Pain: Yes Hx Coronary Artery / Peripheral Vascular Disease: No Hx CHF / Valvular Disease: No Hx Palpitations: No Cardiovascular History Comment: rhuematic fever as child-benign heart murmur. - Pulmonary History Hx COPD: No Hx Asthma/Reactive Airway Disease: No Hx Recent Upper Respiratory Infection: No Hx Oxygen in Use at Home: No Hx Sleep Apnea: Yes Pulmonary History Comment: sleep apnea-CPAP - Neurologic History Hx Cerebrovascular Accident: No Hx Seizures: No Hx Dementia: No - Endocrine History Hx Diabetes: Yes Endocrine History Comment: Type 2-insulin&oral meds - Renal History Hx Renal Disorders: No - Liver History Hx Hepatic Disorders: No - Neurological & Psychiatric Hx Hx Neurological and Psychiatric Disorders: Yes Neurological / Psychiatric History Comment: Anxiety - Cancer History Hx Cancer: Yes Cancer History Comment: R breast. - Congenital Disorder History Hx Congenital Disorders: No - GI History Hx Gastrointestinal Disorders: Yes Gastrointestinal History Comment: GERD-med. - Other Health History Other Health History: arthritis in spine, hands. R knee weakness due to diabetes. 15 yo FX Cspine from AA chronic HAs since then - Chronic Pain History Chronic Pain: Yes (daily MCKEON.) - Surgical History Prior Surgeries: 2011-L carotid endartorectomy. 2006-lypoma removed. 1982-GB& appi removed. 1980-partial hyterectomy. 2010-bilateral cataracts. ANE Review of Systems - Exercise capacity Exercise capacity: <4 METS ANE Patient History - Allergies Allergies/Adverse Reactions: Penicillins Allergy (Intermediate, Verified 10/31/16 16:40) Hives hydrocodone Allergy (Verified 10/31/16 16:40) Vomiting propoxyphene [From Darvocet-N] Allergy (Verified 10/31/16 16:40) Vomiting - Home Medications Home medications: home medication list seen and reviewed Home Medications: Cholecalciferol Vit D3 [Vitamin D3 (OTC)] 2,000 units PO DAILY 09/29/13 [Last Taken 10/31/16] Glimepiride [Amaryl 2 MG (RX)] 4 mg PO BIDMEAL 09/29/13 [Last Taken 10/31/16] Insulin Aspart [novoLOG] 15 unit SC BID 09/29/13 [Last Taken 09/28/13] Insulin Glargine [Lantus 100 UNITS/ML (RX)] 20 units SC BID 09/29/13 [Last Taken 09/29/13] Losartan/Hydrochlorothiazide [Hyzaar 100-12.5 Tablet] 1 tab PO DAILY 09/29/13 [ Last Taken 10/31/16] Polyvinyl Alcohol/Povidone/Pf [Refresh Classic Eye Drops] 1 each OP BID PRN [Last Taken Unknown] Rosuvastatin Calcium [Crestor 10mg (RX)] 10 mg PO DAILY 09/29/13 [Last Taken ] metFORMIN HCL [Glucophage] 500 mg PO BIDMEAL 09/29/13 [Last Taken 10/31/16] Anastrozole [Arimidex 1 mg (*)] 1 mg PO DAILY 10/31/16 [Last Taken 10/31/16] Venlafaxine HCl [Venlafaxine HCl ER] 150 mg PO BID 10/31/16 [Last Taken 10/31/16 ] - Anes Hx Anes Hx: no prior problems - Smoking Hx Smoking Status: Never smoked - Family Anes Hx Family Hx Anesthesia Complications: son difficulty awakening ANE Labs/Vital Signs - Labs Result Diagrams: 11/02/16 05:00 11/03/16 03:28 - Vital Signs Blood Pressure: 105/69 Heart Rate: 92 Respiratory Rate: 12 O2 Sat (%): 100 Height: 5 ft 1 in Weight: 62.5 kg ANE Physical Exam - Airway Neck exam: FROM Mallampati Score: Class 2 Mouth exam: normal dental/mouth exam - Pulmonary Pulmonary: no respiratory distress - Cardiovascular Cardiovascular: regular rate and rhythym - ASA Status ASA Status: IV ANE Anesthesia Plan Anesthesia Plan: general endotracheal anesthesia Lines/Monitors: arterial line, central line, GISSEL
[2016-11-03] MEDS ORDERED: MIDAZOLAM 2 MG/2 ML VIAL IVP ONE (11:56)
[2016-11-03] MEDS ORDERED: fentaNYL 100 MCG/2 ML INJ ONE (11:58)
[2016-11-03] MEDS ORDERED: REMIFENTANIL HCL 1 MG VIAL ONE (11:58)
[2016-11-03] MEDS ORDERED: ROCURONIUM 100 MG/10 ML VIAL ONE (11:59)
[2016-11-03] MEDS ORDERED: PROPOFOL/EMULSION 500 MG/50 ML BOTTLE IV ONE ×2 (11:59→16:41)
[2016-11-03] MEDS ORDERED: SODIUM BICARBONATE 20 MEQ, LIDOCAINE 1% 10 ML in NORMOSOL-R 1,000 ML MISC ONE (12:00)
[2016-11-03] MEDS ORDERED: PHENYLEPHRINE HCL 50 MG in NS 250 ML IV ONE (12:00)
[2016-11-03] MEDS ORDERED: AMINOCAPROIC ACID 5 GM/20 ML VIAL IV ONE (12:00)
[2016-11-03] MEDS ORDERED: LIDOCAINE 1% 5 ML SDV ID PRN (12:00)
[2016-11-03] MEDS ORDERED: NS 1,000 ML IV ONE (12:00)
[2016-11-03] MEDS ORDERED: NOREPINEPHRINE BITARTRATE 16 MG in NS 250 ML IV ONE (12:00)
[2016-11-03] MEDS ORDERED: MUPIROCIN 2% 22 GM OINT NS ONE (12:00)
[2016-11-03] MEDS ORDERED: ceFAZolin 2 GM/DEXTROSE 100 ML IV ONE (12:00)
[2016-11-03] MEDS ORDERED: CITRATE DEXTROSE SOLN 500 ML BAG MISC ONE (12:00)
[2016-11-03] MEDS ORDERED: niCARdipine/NACL 200 ML IV ONE (12:00)
[2016-11-03] MEDS ORDERED: INSULIN REGULAR HUMAN 100 UNIT in NS 100 ML IV ONE (12:00)
[2016-11-03] MEDS ORDERED: MANNITOL 25% 12.5 GM/50 ML VIAL IV ONE (12:00)
[2016-11-03] MEDS ORDERED: VERAPAMIL 5 MG, NITROGLYCERIN 2.5 MG, HEPARIN 500 UNIT, SODIUM BICARBONATE 0.2 MEQ in L... MISC ONE (12:00)
--- NOTE | 2016-11-03 12:14 | PDHPUP ---
History & Physical Update H&P update statement: This history and physical update is based on an assessment of the patient which was completed after admission or registration (within 24 hours), but prior to the surgery/procedure. H&P changes: no CP, less dyspnea ("I can talk")
[2016-11-03] MEDS ORDERED: MIDAZOLAM 2 MG/2 ML VIAL ONE (12:21)
[2016-11-03] MEDS ORDERED: PAPAVERINE HCL 60 MG/2 ML SDV ONE (12:30)
[2016-11-03] MEDS ORDERED: VERAPAMIL 5 MG/2 ML VIAL ONE (12:30)
[2016-11-03] MEDS: ceFAZolin 1 GM VIAL ONE ×2 (12:46→14:01)
[2016-11-03] MEDS ORDERED: NITROGLYCERIN/D5W 50 MG/250 ML BOTTLE IV ONE (14:18)
[2016-11-03] MEDS ORDERED: MAGNESIUM SULF 2 GM/WATER 50 ML BAG IV ONE (14:49)
[2016-11-03] MEDS ORDERED: MINERAL OIL 10 ML VIAL ONE (16:04)
[2016-11-03] MEDS ORDERED: ALBUTEROL HFA ANES ONLY 200 PUFFS/8.5 GM MDI IH ONE (16:56)
--- NOTE | 2016-11-03 17:46 | POSTOPPROG ---
Post Op Note Date of Operation: 11/03/16 Surgeon: Emeterio Bustillo Broadcasting Equipment Mechanic: Mich Anesthesiologist: Varun Anesthesia: GET(General Endotracheal) Pre-op Diagnosis: ICM, ASHD, CHF class 3 Procedure: CAB4 nguyen-Lad, SVG-Dg,PLCX, PLRCA,Lig IMTCH, EVH, IABP Inf/Abcess present in the surg proc area at time of surgery?: No EBL: 100-500
[2016-11-03] MEDS ORDERED: MAGNESIUM HYDROXIDE 30 ML UDCUP PO PRN (17:54)
[2016-11-03] MEDS ORDERED: MAGNESIUM SULF 2 GM/WATER 50 ML IV ONE (17:54)
[2016-11-03] MEDS ORDERED: PANTOPRAZOLE SODIUM 40 MG in NS 100 ML IV ONE (17:54)
[2016-11-03] MEDS ORDERED: POLYETHYLENE GLYCOL 3350 17 GM PKT PO PRN (17:54)
[2016-11-03] MEDS ORDERED: ACETAMINOPHEN 650 MG SUPP PR PRN (17:54)
[2016-11-03] MEDS ORDERED: ONDANSETRON DISINTEGRATING 4 MG TAB PO PRN (17:54)
[2016-11-03] MEDS ORDERED: CEPACOL LOZENGE PO PRN (17:54)
[2016-11-03] MEDS ORDERED: LACTULOSE 20 GM/30 ML UDCUP PO PRN (17:54)
[2016-11-03] MEDS ORDERED: SODIUM CL NASAL 45 ML BTL EACHNARE PRN (17:54)
[2016-11-03] MEDS ORDERED: D50W 25 GM/50 ML SYR IVP PRN (17:54)
[2016-11-03] MEDS ORDERED: MEPERIDINE 25 MG/ML SYR IVP PRN (17:54)
[2016-11-03] MEDS ORDERED: BISACODYL 10 MG SUPP PR PRN (17:54)
[2016-11-03] MEDS ORDERED: NS 1,000 ML IV SCH (18:00)
[2016-11-03] MEDS ORDERED: INSULIN REGULAR HUMAN 100 UNIT in NS 100 ML IV SCH (18:00)
[2016-11-03] MEDS ORDERED: ALBUMIN 5% 500 ML BOTTLE IV ONE (18:37)
[2016-11-03 18:51] LABS: CALCULATED OXYGEN SATURATION 96 % (92-95)
--- NOTE | 2016-11-03 19:20 | POSTANESTH ---
Post Anesthetic Evaluation Cardiovascular Status: Tx Hyper/Hypo-tension Respiratory Status: Other, See Comment Level of Consciousness/Mental Status: Unconscious Pain Control: Adequate, Prn Tx Ordered Nausea/Vomiting Control: Adequate, Prn Tx Ordered Complications Possibly Related to Anesthesia: None Noted (in icu on vent, iabp and multiple pressors. no apparent comp from geta)
[2016-11-03] MEDS: POTASSIUM Cl (KCl) 50 ML IV PRN ×2 (19:21→21:16)
--- NOTE | 2016-11-03 19:36 | GOP ---
[f rep st] OPERATIVE REPORT DATE OF OPERATION: 11/03/2016 SURGEON: Emeterio Bustillo DO EXPORT ADMINISTRATOR: ANNALEE Li ANESTHESIOLOGIST: Alicja Najera MD PREOPERATIVE DIAGNOSIS: 1. Ischemic cardiomyopathy with severe left ventricular dysfunction. 2. Unstable angina with arteriosclerotic heart disease. 3. Congestive heart failure class 3. POSTOPERATIVE DIAGNOSIS: 1. Ischemic cardiomyopathy with severe left ventricular dysfunction. 2. Unstable angina with arteriosclerotic heart disease. 3. Congestive heart failure class 3. PROCEDURE PERFORMED: 1. Coronary artery bypass grafting x4 with the left internal mammary artery to the left anterior de scending, saphenous vein graft to the diagonal, saphenous vein graft to the posterior lateral circum flex, and saphenous vein graft to the posterolateral branch of the right. 2. AtriClip to the left atrial appendage. 3. Endoscopic vein harvest of both legs. 4. Left common femoral artery intra-aortic balloon pump. FINDINGS: Patient presented with shortness of breath and evidence of congestive heart failure. On echo, she was noted to have ejection fraction of 15%. Subsequent diagnostic evaluation revealed sev ere triple-vessel disease with diffuse small vessel disease. After consultation with the patient an d family, they are agreeable to surgery including full support postoperatively if necessary to get h er through the procedure. Consent was obtained. DESCRIPTION OF PROCEDURE: She was taken to the operating room, intubated, monitoring lines were alia arian. She was prepped and draped in sterile classical manner. Sternotomy was performed. Transesoph ageal echo confirmed ejection fraction approximately 15% with increase in systolic dimensions and gl obal hypokinesis. The mammary was harvested, which was a good quality 2 mm vessel. The vein was sutton rvested from both thighs, which were 2.8 mm, but good quality vessel, appropriately matched to the p atient's coronaries. She was heparinized, cannulated. Cardiopulmonary bypass was begun and cardiop legic arrest was obtained with antegrade cardioplegia, topical hypothermia and systemic cooling. Initially, the circumflex vessel was grafted. It was a 2 mm vessel with some posterior wall plaquin g. The vein was brought off the ascending aorta with continuous running 6-0 Prolene after completio n of the distal anastomosis. We then proceeded with grafting a very poor quality diagonal which fallon sured 1.5 mm. The vein was also brought off the ascending aorta in the standard fashion. I then pr oceeded with grafting in the mid LAD. It was a 1.6 to 1.8 mm diffusely diseased, poor quality vesse l. The mammary was tacked to the epicardium. Rewarming was begun. An AtriClip was placed on the l eft atrial appendage, flush. We then grafted the posterolateral branch of the right, which was actu ally the patient's best vessel. It was a 2.5 mm vessel with a proximal anastomosis completed with 6 -0. The cross-clamp was then removed with suction on the ascending aortic vent. When no spontaneous car diac activity was noted to resume, we then rested the patient on pump for some time because of globa l hypokinesis and poor ventricular function. With increasing large doses of inotropic support and l eft common femoral intraaortic balloon pump, she was successfully weaned from bypass. Heparin was r eversed with protamine. The cannula was removed and oversewn. Four pacing wires and 2 pleural, 1 m ediastinal drain were placed. The thymic fat and pericardium were closed. The chest was closed in standard fashion. Patient was returned to ICU in critical condition. /[id number]/MODL
[2016-11-03] MEDS: fentaNYL 100 MCG/2 ML INJ IVP PRN ×2 (19:45→22:46)
[2016-11-03] MEDS: DEXMEDETOMIDINE HCL 400 MCG in NS 100 ML IV SCH (20:32)
[2016-11-03] MEDS: ALBUMIN 5% 250 ML IV PRN (22:05)
[2016-11-03] MEDS: ceFAZolin 2 GM/DEXTROSE 100 ML IV SCH (22:06)
[2016-11-03] MEDS: DOBUTamine/DEXTROSE 250 ML IV SCH (22:46)
[2016-11-04 00:29] LABS: CALCULATED OXYGEN SATURATION 92 % (92-95); O2 CONCENTRATIION 50 % (0-100)
[2016-11-04] MEDS: ALBUMIN 5% 250 ML IV PRN (00:30)
[2016-11-04] MEDS: fentaNYL 100 MCG/2 ML INJ IVP PRN ×7 (01:23→10:30)
[2016-11-04] MEDS: DEXMEDETOMIDINE HCL 400 MCG in NS 100 ML IV SCH ×2 (02:56→21:41)
[2016-11-04] MEDS: DOBUTamine/DEXTROSE 250 ML IV SCH ×2 (04:43→13:08)
[2016-11-04 05:04] LABS: BASE EXCESS -4.2 mEq/L (-2.5-2.5); BICARBONATE 20 mEq/L (22-26); MEASURED OXYGEN SATURATION 96 % (92-95); PCO2 38 mmHg (34-38); PO2 85 mmHg (65-75); TCO2 22 mEq/L (23-27)
[2016-11-04 05:05] LABS: ASSIST CONTROL YES; END TIDAL CO2 39
[2016-11-04 05:06] LABS: O2 CONCENTRATIION 40 % (0-100); P/F RATIO 213 RATIO; TOTAL RATE 12
[2016-11-04 05:10] LABS: % IMMATURE GRANULYOCYTES 0.5 % (0.0-1.1); ABSOLUTE IMMATURE GRANULOCYTES 0.05 10^3/uL (0.00-0.10); ADD DIFF? NO; ADD MORPH? NO; ADD SCAN? NO; ATYPICAL LYMPHOCYTE FLAG 0 (0-99); FRAGMENT RBC FLAG 0 (0-99); HEMATOCRIT 28.1 % (38.0-47.0); HEMOGLOBIN 9.4 g/dL (12.6-16.3); LEFT SHIFT FLG 10 (0-99); LIPEMIA HEMOLYSIS FLAG 80 (0-99); MEAN CELL HEMOGLOBIN 31.1 pg (27.9-34.1); MEAN CELL HEMOGLOBIN CONCENTR. 33.5 g/dL (32.4-36.7); MEAN PLATELET VOLUME 11.9 fL (8.7-11.7); PLATELET CLUMPS FLAG 0 (0-99); RED BLOOD CELL COUNT 3.02 10^6/uL (4.18-5.33); RED CELL DISTRIBUTION WIDTH 16.9 % (11.5-15.2)
[2016-11-04] MEDS: ceFAZolin 2 GM/DEXTROSE 100 ML IV SCH ×3 (05:13→21:04)
[2016-11-04 05:18] LABS: PLATELET COUNT 45 10^3/uL (150-400)
[2016-11-04 05:33] LABS: ANION GAP 13 mEq/L (8-16); CALCIUM 8.5 mg/dL (8.5-10.4); CARBON DIOXIDE 22 mEq/l (22-31); CHLORIDE 107 mEq/L (97-110); CREATININE 0.9 mg/dL (0.6-1.0); GLOMERULAR FILTRATION RATE > 60; GLUCOSE 130 mg/dL (70-100); POTASSIUM 4.1 mEq/L (3.5-5.2); SODIUM 142 mEq/L (134-144)
[2016-11-04 05:41] LABS: PLATELET ESTIMATE DECREASED (ADEQ)
--- NOTE | 2016-11-04 06:40 | SOAPPROG ---
SOAP Progress Note Assessment/Plan: Assessment: POD#1 CABG x 4 (GONZALEZ-LAD, SV-D1, SV-PLC, SV-PLR), EVH bilat thighs, prophylactic AtriClip ligation left atrial appendage, RCF IABP 1:1 Severe CAD with severe LVSD/ISCM - No significant change in LVEF post 4 vessel revasc. Secondary prevention w ASA, BB, and statin when appropriate. Acute systolic and diastolic CHF, class IV - Globally hypokinetic LV, w preop LVEF 15-20%, LVEDP 22. Medically stabilized with pressor support and diuresis prior to surgery. Successful separation from CPB on combo vasoactive support and IABP. Stable hemodynamics overnight on fixed dose levo/NTG/dobut. Adequately diuresing moderate fluid overload with stable renal fx. No sustained tachyarrhythmias. AF prophylaxis with BB as allowed by BP. Staggered reintroduction of heart failure regimen as tolerated. Hx NSVT preop - Postop rhythm ST with occ PVCs and a couple 4-6 beat runs NSVT. Lifevest prior to discharge. ICD eval in 3 mo. Acute postoperative respiratory insufficiency - Kept intubated and sedated for IABP tolerance. No apparent focal neuro deficits. Vent management per pulm. Acute expected blood loss anemia w thrombocytopenia - Stable s/p 3u PRBC intraop. No evidence active bleeding. Precautionary HIT to be sent. Care with VTE prophylaxis while platelets depressed. DM2, controlled - By preop A1c of 7.3%. Postop hyperglycemia managed with insulin gtt. Transition to basal/prandial/SSI as per ICU. Hx breast CA - Anastrozole to resume when appropriate Plan: Wean IABP. 1:4, then 1:8, then pull. Wean drips 4 hrs after IABP out. Dobut to CI > 2. NTG to 5 mcg for latisha perfusion. Levo to MAP > 70. Colloid prn PAD < 16. Vent management per pulm. Ck HIT Ab. 11/04/16 06:54 Subjective: Soundly sedated on vent. Currently not responsive but reportedly arousable to name and able to follow simple commands earlier this am. Objective: Vital Signs Temp Pulse Resp BP Pulse Ox 36.8 C 110 H 12 105/50 L 96 11/04/16 06:00 11/04/16 06:00 11/04/16 06:00 11/04/16 06:00 11/04/16 06:00 Laboratory Results 11/04/16 04:55 11/04/16 04:55 11/03/16 11/04/16 11/05/16 05:59 05:59 05:59 Intake Total 1400 1853 Output Total 700 1460 Balance 700 393 PT 14.2 SEC (12.0-15.0) 11/01/16 03:17 INR 1.11 (0.83-1.16) 11/01/16 03:17 Sedated on Precedex. Rhythm ST. MAPs > 70 on Levo 4 mcg, NTG 20 mcg, Dobut 20 mcg, IABP 1:1. PAs 40s-50s/18-20, CI 3 range, SVO2 70s. SpO2 96% on Vent FIO2 40%. Minimal CTOP. CXR-> no PTX, mild pulm vasc congestion, right basilar atelectasis Balanced I/Os. Labs ok except for lower than expected plt count Physical Exam - Physical Exam General Appearance: no apparent distress Respiratory: lungs clear (grossly), other (Blakes x 3 to pleurovac, serosang drainage, no AL) Cardiac/Chest: regular rate, rhythm, tachycardia, other (Sternum grossly stable. Sternotomy CDI) Abdomen: normal bowel sounds, soft Skin: warm/dry Extremities: swelling (1+ gen), other (Left groin soft. Feet pink and warm. Bilat leg wraps intact) ICD10 Worksheet Patient Problems: Problems Problem Status Onset Acute blood loss anemia Acute S/P CABG x 4 Acute ~11/03/16 CAD, multiple vessel Chronic Dilated cardiomyopathy Chronic
[2016-11-04] MEDS: MUPIROCIN 2% 22 GM OINT NS SCH (08:09)
[2016-11-04] MEDS: ASPIRIN 81 MG CHEWABLE TAB PO SCH (09:41)
[2016-11-04] MEDS ORDERED: LIDOCAINE 1% 300 MG/30 ML SDV ONE ×2 (09:54→16:32)
[2016-11-04] MEDS ORDERED: ATROPINE SULFATE 1 MG/10 ML SYR ONE (09:59)
--- NOTE | 2016-11-04 12:23 | CPIP ---
[f rep st] INVASIVE CARDIAC PROCEDURE DATE OF PROCEDURE: 11/04/2016 NAME OF PROCEDURE: Intra-aortic balloon pump removal. INDICATIONS: Per the request of Cardiothoracic Surgery, we have been asked to remove patient's intr a-aortic balloon pump. The patient is 1 day postop from CABG. She has been hemodynamically stable. S he has been titrated down to 1:8 assisted pumping on balloon pump and has been tolerating well. Betty ent still remains sedated and on ventilator. DESCRIPTION OF PROCEDURE: After evaluating today's laboratory studies, the left groin was prepped f or removal with ChloraPrep. One percent lidocaine was infiltrated into the subcu tissue prior to rem oving. Blood withdrew both on balloon pump catheter and left femoral artery sheath. Balloon pump was removed with sheath intact. Manual pressure held for a total of 25 minutes, hemostasis obtained. Rj mackenzie's left dorsal pedal pulse was +1 post removal. A FemoStop was applied at 30 mmHg (sandbag pres sure) with instructions for ICU staff to keep on for the next 120 minutes. They have been told to mo nitor the groin site and distal pulses every 15 times 4, every 30 times 2, and every hour times 4. Katey ralph's final heart rate was 99, sinus rhythm on the monitor, blood pressure 100/49. No apparent co mplications. /[id number]/MODL
--- NOTE | 2016-11-04 14:58 | PDINTPN ---
Supervisor Dimension Warehouse Progress Note Assessment/Plan: Assessment: Status post open heart surgery, CABG. Blood pressure remains borderline. On dobutamine, Levophed, and nitroglycerin. IABP pulled. Postoperative respiratory insufficiency. Secondary to congestive heart failure , atelectasis. On ventilator, unable to tolerate CPAP weans at this time. Will advance slowly, extubate as soon as possible. May need low-dose sedation overnight. Acute blood-loss anemia. Hematocrit 28. Follow. Chest tube drainage slowing down. History of obstructive sleep apnea. History of multiple medical problems including hypertension, hyperlipidemia, PVD etc. Metabolic: On replacement protocols, insulin coverage. DVT: On aspirin, Lovenox on hold. GI prophylaxis: Pantoprazole. Plan: Continue ventilatory support. Wean as tolerated, with CPAP trials as she wakes up. Decreased sedation and pain medications as much as possible for respiratory status. Follow laboratory, x-ray. Wean norepinephrine, dobutamine as tolerated. 45 minutes of clinic time spent directly with the patient. Discussed with the patient's family, respiratory, nursing, CVS, and the ICU multi disciplinary team. Subjective: Sedated, on the ventilator. Intra-aortic balloon pump pulled late this morning. Objective: Vital Signs Temp Pulse Resp BP Pulse Ox 37.3 C 100 13 115/58 L 96 11/04/16 14:00 11/04/16 14:00 11/04/16 14:00 11/04/16 14:00 11/04/16 14:00 Laboratory Results 11/04/16 04:55 11/04/16 14:00 11/03/16 11/04/16 11/05/16 05:59 05:59 05:59 Intake Total 1400 1853 Output Total 700 1460 550 Balance 700 393 -550 PT 14.2 SEC (12.0-15.0) 11/01/16 03:17 INR 1.11 (0.83-1.16) 11/01/16 03:17 Laboratory Tests 11/04/16 11/04/16 04:55 04:55 pCO2 38 pO2 85 H ABG pH 7.35 O2 Concentration % 40 Respiration Rate 12 Tidal Volume 600 Sodium 142 Potassium 4.1 Chloride 107 Carbon Dioxide 22 D Anion Gap 13 BUN 19 Creatinine 0.9 Glucose 130 H Calcium 8.5 CXR: Lines and tubes in good position. Large heart with some congestive heart failure features. Basilar atelectasis Physical Exam - Physical Exam General Appearance: other ( sedated, on the ventilator, intra-aortic balloon pump initially in place, now out.) EENT: PERRL/EOMI, ET tube, other (OG tube) Neck: other ( triple-lumen catheter in place on the right) Respiratory: decreased breath sounds ( bilaterally), rales ( at bases with some bronchial changes), No rhonchi, No wheezing Cardiac/Chest: tachycardia ( sinus, low 100s) Abdomen: soft, No normal bowel sounds ( decreased) Pelvic Exam: other ( Vinson catheter in place, decreased urine output this afternoon) Skin: warm/dry, pallor Extremities: swelling ( bilateral edema, both legs Kvng wrapped.) Neuro/Psych: no motor/sensory deficits ( Arouses, moves all extremities equally ), No cognition abnormalities ( cognition appears intact but difficult to evaluate with sedation.) ICD10 Worksheet Patient Problems: Problems Problem Status Onset Acute blood loss anemia Acute S/P CABG x 4 Acute ~11/03/16 Dilated cardiomyopathy Chronic CAD, multiple vessel Chronic
[2016-11-04] MEDS ORDERED: FUROSEMIDE 40 MG/4 ML VIAL IVP ONE (15:45)
[2016-11-04] MEDS ORDERED: NOREPINEPHRINE/NS 500 ML IV SCH (16:00)
[2016-11-04] MEDS ORDERED: *HTN PROTOCOL*NITROGLYCERIN/DEXTR IV SCH ×2 (16:00→16:30)
[2016-11-04 17:15] LABS: BASE EXCESS -0.8 mEq/L (-2.5-2.5); BICARBONATE 24 mEq/L (22-26); MEASURED OXYGEN SATURATION 96 % (92-95); PCO2 43 mmHg (34-38); PO2 91 mmHg (65-75); TCO2 25 mEq/L (23-27)
[2016-11-04 17:16] LABS: CPAP YES
[2016-11-04 17:17] LABS: END TIDAL CO2 50; O2 CONCENTRATIION 40 % (0-100); P/F RATIO 228 RATIO; PATIENT RATE 20; PRESSURE SUPPORT 7
[2016-11-04] MEDS ORDERED: PARAMETERS MISC PRN (17:27)
[2016-11-04] MEDS ORDERED: D10W 250 ML PRN HYPOGLYCEMIA IV (17:30)
[2016-11-04] MEDS ORDERED: INSULIN LISPRO 100 UNIT/ML SC SCH (18:00)
[2016-11-04] MEDS: ONDANSETRON 4 MG/2 ML VIAL IVP PRN (19:29)
[2016-11-04] MEDS: ACETAMINOPHEN 325 MG TAB PO PRN (19:29)
[2016-11-04] MEDS: METOCLOPRAMIDE 10 MG/2 ML VIAL IVP PRN (19:29)
[2016-11-04] MEDS: INSULIN REGULAR, HUMAN 100 UNIT/1 ML VIAL STANDARD SC SCH ×2 (19:30→22:45)
[2016-11-04] MEDS ORDERED: PROTOCOL POTASSIUM 1 DOSE MISC PRN ×2 (20:02)
[2016-11-04] MEDS: VENLAFAXINE XR 150 MG CAP PO SCH (20:39)
[2016-11-04] MEDS ORDERED: LORazepam 2 MG/ML INJ ONE (22:15)
[2016-11-04] MEDS: LORazepam 2 MG/ML INJ IVP PRN (22:15)
[2016-11-04] MEDS ORDERED: PROPOFOL/EMULSION 100 ML IV SCH (22:25)
[2016-11-04] MEDS ORDERED: POTASSIUM Cl (KCl) 50 ML IV ONE (22:30)
[2016-11-05] MEDS ORDERED: NOREPINEPHRINE BITARTRATE 16 MG in NS 250 ML IV SCH (01:13)
[2016-11-05] MEDS: LORazepam 2 MG/ML INJ IVP PRN (01:27)
[2016-11-05] MEDS: DOBUTamine/DEXTROSE 250 ML IV SCH (01:33)
[2016-11-05] MEDS: INSULIN REGULAR, HUMAN 100 UNIT/1 ML VIAL STANDARD SC SCH ×4 (02:10→18:41)
[2016-11-05] MEDS: ceFAZolin 2 GM/DEXTROSE 100 ML IV SCH (05:30)
[2016-11-05 06:02] LABS: % IMMATURE GRANULYOCYTES 0.4 % (0.0-1.1); ABSOLUTE IMMATURE GRANULOCYTES 0.05 10^3/uL (0.00-0.10); ADD DIFF? NO; ADD MORPH? NO; ADD SCAN? NO; ATYPICAL LYMPHOCYTE FLAG 0 (0-99); FRAGMENT RBC FLAG 0 (0-99); HEMATOCRIT 29.3 % (38.0-47.0); HEMOGLOBIN 9.8 g/dL (12.6-16.3); LEFT SHIFT FLG 0 (0-99); LIPEMIA HEMOLYSIS FLAG 80 (0-99); MEAN CELL HEMOGLOBIN 31.8 pg (27.9-34.1); MEAN CELL HEMOGLOBIN CONCENTR. 33.4 g/dL (32.4-36.7); MEAN CELL VOLUME 95.1 fL (81.5-99.8); MEAN PLATELET VOLUME 13.3 fL (8.7-11.7); PLATELET CLUMPS FLAG 0 (0-99); RED BLOOD CELL COUNT 3.08 10^6/uL (4.18-5.33); RED CELL DISTRIBUTION WIDTH 16.8 % (11.5-15.2)
[2016-11-05 06:04] LABS: PLATELET COUNT 47 10^3/uL (150-400)
[2016-11-05 06:07] LABS: APTT 33.9 SEC (23.0-38.0); INR 1.8 (0.83-1.16)
[2016-11-05 06:38] LABS: ALANINE AMINOTRANSFERASE 20 IU/L (9-52); ALBUMIN 3.4 g/dL (3.5-5.0); ALKALINE PHOSPHATASE 53 IU/L (38-126); ANION GAP 12 mEq/L (8-16); ASPARTATE AMINOTRANSFERASE 48 IU/L (14-46); BILIRUBIN,TOTAL 1.1 mg/dL (0.1-1.4); CALCIUM 8.3 mg/dL (8.5-10.4); CARBON DIOXIDE 25 mEq/l (22-31); CHLORIDE 103 mEq/L (97-110); CREATININE 0.9 mg/dL (0.6-1.0); GLOMERULAR FILTRATION RATE > 60; GLUCOSE 190 mg/dL (70-100); POTASSIUM 4.2 mEq/L (3.5-5.2); SODIUM 140 mEq/L (134-144)
[2016-11-05 07:42] LABS: PLATELET ESTIMATE DECREASED (ADEQ)
--- NOTE | 2016-11-05 08:27 | SOAPPROG ---
SOAP Progress Note Assessment/Plan: Assessment: POD#2 CABG x 4 (GONZALEZ-LAD, SV-D1, SV-PLC, SV-PLR), EVH bilat thighs, prophylactic AtriClip ligation left atrial appendage, RCF IABP 1:1 Severe CAD with severe LVSD/ISCM - No significant change in LVEF post 4 vessel revasc. Secondary prevention w ASA, BB, and statin when appropriate. Acute systolic and diastolic CHF, class IV - Globally hypokinetic LV, w preop LVEF 15-20%, LVEDP 22. Medically stabilized with pressor support and diuresis prior to surgery. Successful separation from CPB on combo vasoactive support and IABP. Balloon pump removed yest. Drip wean in progress. Adequately diuresing moderate fluid overload with stable renal fx. No sustained tachyarrhythmias. AF prophylaxis with BB as allowed by BP. Staggered reintroduction of heart failure regimen as tolerated. Hx NSVT preop - Postop rhythm ST with freq PVCs, occ PACs and a couple 4-6 beat runs NSVT. Lifevest prior to discharge. ICD eval in 3 mo. Acute postoperative respiratory insufficiency - Kept intubated and sedated for IABP tolerance. Slow vent wean initiated yest. Extubated this am without incident. Remains heavily sedated. No apparent focal neuro deficits. Strict NPO until fully alert. Acute expected blood loss anemia w thrombocytopenia - Stable s/p 3u PRBC intraop. No evidence active bleeding. Precautionary HIT sent and pending. Mildly autoanticoagulated. VTE prophylaxis avoided. DM2, controlled - By preop A1c of 7.3%. Postop hyperglycemia managed with insulin gtt. Transition to basal/prandial/SSI as per ICU. Hx breast CA - Anastrozole to resume when appropriate. Plan: Stop precedex and ativan. Replace radial delphine. Cont PA cath monitoring. Wean Dobut to CI > 1.7, SVO2 > 68. Levo prn MAP > 70. Colloid prn PAD < 16. Lasix prn PAD > 22. Blakes to bulb suction. Wrap and cap TCPWs. Mobilize as tolerated. Strict NPO today. Consider COMMERCIAL PEST CONTROL TECHNICIAN clearance for orals tomorrow. 11/05/16 08:25 Subjective: Sedated and somnolent. Opens eyes to name, able to follow simple commands with prompting. Drifts back to sleep without aggressive stimulation. Objective: Vital Signs Temp Pulse Resp BP Pulse Ox 38.1 C 98 16 124/76 H 100 11/05/16 08:00 11/05/16 08:00 11/05/16 08:00 11/05/16 08:00 11/05/16 08:00 Laboratory Results 11/05/16 05:50 11/05/16 05:50 11/04/16 11/05/16 11/06/16 05:59 05:59 05:59 Intake Total 1853 1440 Output Total 1460 2135 40 Balance 393 -695 -40 PT 21.0 SEC (12.0-15.0) H 11/05/16 05:50 INR 1.80 (0.83-1.16) H 11/05/16 05:50 NTG and insulin off. Radial delphine accidentally dislodged last night. Cuff cycling q 30min, inc to q 10min pending delphine replacement. Rhythm ST w freq PVCs. MAPs > 68 on Levo 4 mcg, Dobut 7 mcg. Dobut turned down to 3.5 mcg earlier this am. PAs 40s-50s/20s, CI 2 range, SVO2 60s. CTOP thin. Quantity remains low despite elev INR. CXR-> no PTX, mild pulm vasc congestion, no undrained effusions Balanced I/Os. LFTs ok. No further decr in plts. Physical Exam - Physical Exam General Appearance: no apparent distress, unresponsive (without forceful stimulation) EENT: other (pinpoint pupils) Respiratory: lungs clear (grossly), other (blakes x 3 to pleurovac, serosang drainage, no air leak) Cardiac/Chest: tachycardia, other (Sternum grossly stable. Sternotomy and bilat venotomies CDI. A&V wires intact.) Peripheral Pulses: 2+: dorsalis-pedis (R), dorsalis-pedis (L) (groin soft, no palp hematoma) Abdomen: soft Skin: warm/dry Extremities: swelling (2+ gen) ICD10 Worksheet Patient Problems: Problems Problem Status Onset Acute blood loss anemia Acute S/P CABG x 4 Acute ~11/03/16 CAD, multiple vessel Chronic Dilated cardiomyopathy Chronic
[2016-11-05] MEDS: FUROSEMIDE 40 MG/4 ML VIAL IVP SCH (08:30)
[2016-11-05 08:36] LABS: CALCULATED OXYGEN SATURATION 98 % (92-95); O2 CONCENTRATIION 40 % (0-100)
[2016-11-05] MEDS: SENNOSIDES/DOCUSATE SODIUM TAB PO SCH ×2 (10:17→21:25)
[2016-11-05] MEDS: ASPIRIN 81 MG CHEWABLE TAB PO SCH (10:23)
[2016-11-05 14:53] LABS: POTASSIUM 3.9 mEq/L (3.5-5.2)
[2016-11-05] MEDS ORDERED: POTASSIUM Cl (KCl) 50 ML IV ONE (15:06)
--- NOTE | 2016-11-05 16:09 | ECHO ---
[id number] + + [address] : : [place] [address] : : [phone] + + Adult Echocardiographic Report + + :Name: JAKE RAI DStudy Date: 11/05/2016 12:08 PM : : Hospital Admission Number: [id number] Lo cation: 255: :: 1935 Gender: Female Height: 61 in : :Age: 81 yrs Race: WH Weight: 15 2 lb : :Reason For Study: Post op CABG/low EF : : BSA: 1.7 m eters2 : + + MMode/2D Measurements \T\ Calculations LVIDd: 4.8 cm EDV(Teich): 109.9 ml Normal Measurement Values: + + :LVIDd (3.5-5.7cm) IVSd (0.6-1.1cm) LVPWd (0.6-1.1cm) Aortic Root (2.0-3.7cm)Left Atrium (1.5-4.0cm): :LV Vol(d) (76-115ml) LV Vol(s) (29-48ml) Ejec Fraction (50-65%)PV Leonard (0.6- 1.2m/s) TV Leonard (0.4-1.0m/s) : :MV E Leonard (0.8-1.0m/s)MV A Leonard (0.3-1.0m/s)LVOT Leonard (0.7-1.2m/s) Asc Ao Leonard ( 0.9-1.8m/s) : + + Left Ventricle EF estimate is 20-25%. Septal motion is consistent with post-operative state. Conclusion Limited 2-D echo. Pt on dobutamine during this exam. The study was technically difficult. Indeterminate rhythm with ICVD EF estimate is 20-25%. Tristan assess regionality. No pericardial effusion. Mild MR and TR. Aortic sclerosis with mild AI. No pericardial effusion. Final Reading Physician: Chayo Orta signed on 11/05/2016 04:08 PM Ordering Physician: Emeterio Bustillo Performed By: Christie Salinas [facility]
[2016-11-05 17:37] LABS: HEPARIN INDUCED ANTIBODY Negative (Negative); HEPARIN-PF4 IgG ANTIBODY ELISA < 0.075 OD (<0.400)
--- NOTE | 2016-11-05 18:13 | PDINTPN ---
Chain Mortiser Operator Progress Note Assessment/Plan: Assessment: Status post open heart surgery, CABG. Blood pressure improving. On dobutamine , Levophed, and nitroglycerin. IABP pulled. Congestive heart failure: By report ejection fraction on the left is about 15%. Postoperative respiratory insufficiency. Secondary to congestive heart failure , atelectasis. Extubated this morning. Acute blood-loss anemia. Hematocrit 28. Follow. Chest tube drainage slowing down. History of obstructive sleep apnea. History of multiple medical problems including hypertension, hyperlipidemia, PVD etc. Metabolic: On replacement protocols, insulin coverage. DVT: On aspirin, Lovenox on hold. GI prophylaxis: Pantoprazole. Plan: Continue support in the intensive care unit. Follow laboratory, x-ray. Wean norepinephrine, dobutamine as tolerated. Increase mobilization. Continue bronchopulmonary therapies. 35 minutes of clinic time spent directly with the patient. Discussed with the patient's family, respiratory, nursing, CVS, and the ICU multi disciplinary team. Subjective: Extubated this a.m., doing okay since. Remains on dobutamine and norepinephrine. Objective: Vital Signs Temp Pulse Resp BP Pulse Ox 37.3 C 113 H 14 140/61 H 100 11/05/16 17:00 11/05/16 17:00 11/05/16 17:00 11/05/16 17:00 11/05/16 17:00 Laboratory Results 11/05/16 05:50 11/05/16 13:30 11/04/16 11/05/16 11/06/16 05:59 05:59 05:59 Intake Total 1853 1440 Output Total 1460 2135 995 Balance 393 -695 -995 PT 21.0 SEC (12.0-15.0) H 11/05/16 05:50 INR 1.80 (0.83-1.16) H 11/05/16 05:50 Laboratory Tests 11/05/16 05:50 Sodium 140 Potassium 4.2 Chloride 103 Carbon Dioxide 25 Anion Gap 12 BUN 20 Creatinine 0.9 Calcium 8.3 L Total Bilirubin 1.1 AST 48 H ALT 20 Albumin 3.4 L CXR: Large heart. No focal infiltrates Physical Exam - Physical Exam General Appearance: other (Sleeping, lethargic, arouses. Appears weak) EENT: PERRL/EOMI, other Neck: normal inspection, other Respiratory: lungs clear (Anteriorly), decreased breath sounds (At bases) Cardiac/Chest: regular rate, rhythm, gallop Abdomen: non-tender, soft, No normal bowel sounds (Present, decreased) Pelvic Exam: other (Vinson catheter in place, good urine output with Lasix.) Skin: warm/dry, pallor Extremities: pedal edema (Trace +, lower extremities wrapped) Neuro/Psych: no motor/sensory deficits (Moves all extremities equally, globally weak), No cognition abnormalities ICD10 Worksheet Patient Problems: Problems Problem Status Onset Acute blood loss anemia Acute S/P CABG x 4 Acute ~11/03/16 CAD, multiple vessel Chronic Dilated cardiomyopathy Chronic
[2016-11-05 19:50] LABS: POTASSIUM 4.4 mEq/L (3.5-5.2)
[2016-11-06] MEDS: INSULIN REGULAR, HUMAN 100 UNIT/1 ML VIAL STANDARD SC SCH ×5 (00:07→23:57)
[2016-11-06 04:44] LABS: HEMATOCRIT 30.4 % (38.0-47.0); HEMOGLOBIN 9.7 g/dL (12.6-16.3); MEAN CELL HEMOGLOBIN 31.5 pg (27.9-34.1); MEAN CELL HEMOGLOBIN CONCENTR. 31.9 g/dL (32.4-36.7); MEAN CELL VOLUME 98.7 fL (81.5-99.8); RED BLOOD CELL COUNT 3.08 10^6/uL (4.18-5.33); RED CELL DISTRIBUTION WIDTH 16.1 % (11.5-15.2)
[2016-11-06 04:52] LABS: ANION GAP 12 mEq/L (8-16); CALCIUM 8.8 mg/dL (8.5-10.4); CARBON DIOXIDE 26 mEq/l (22-31); CHLORIDE 106 mEq/L (97-110); CREATININE 0.8 mg/dL (0.6-1.0); GLOMERULAR FILTRATION RATE > 60; GLUCOSE 153 mg/dL (70-100); SODIUM 144 mEq/L (134-144)
[2016-11-06] MEDS: ONDANSETRON 4 MG/2 ML VIAL IVP PRN (06:16)
--- NOTE | 2016-11-06 08:24 | SOAPPROG ---
SOAP Progress Note Assessment/Plan: Assessment: POD#3 CABG x 4 (GONZALEZ-LAD, SV-D1, SV-PLC, SV-PLR), EVH bilat thighs, prophylactic AtriClip ligation left atrial appendage, RCF IABP 1:1 Severe CAD with severe LVSD/ISCM - No significant change in LVEF post 4 vessel revasc. Secondary prevention w ASA, BB, and statin when appropriate. Acute systolic and diastolic CHF, class IV - Globally hypokinetic LV, w preop LVEF 15-20%, LVEDP 22. Medically stabilized with pressor support and diuresis prior to surgery. Successful separation from CPB on combo vasoactive support and IABP. Balloon pump removed POD#1. Drips steadily weaned. Bedside echo yest notable for LVEF 20-25% on low dose dobut. Adequately diuresing moderate fluid overload with stable renal fx. No sustained tachyarrhythmias. AF prophylaxis with BB as allowed by BP. Staggered reintroduction of heart failure regimen as tolerated. Hx NSVT preop - Postop rhythm ST with freq PVCs, occ PACs and rare 4-8 beat runs NSVT. Lifevest prior to discharge. ICD eval in 3 mo. Acute postoperative respiratory insufficiency - Kept intubated and sedated for IABP tolerance. Subsequent slow vent wean well tolerated and extubated yest without incident. No apparent focal neuro deficits. Strict NPO until cleared by FITNESS CONSULTANT for orals. Acute expected blood loss anemia w thrombocytopenia - Stable s/p 3u PRBC intraop. No evidence active bleeding. Precautionary HIT neg. Platelet counts appear to be rebounding. Mildly auto-anticoagulated (INR 1.8 on POD#2). VTE prophylaxis avoided while plts < 100. DM2, controlled - By preop A1c of 7.3%. Postop hyperglycemia managed with insulin gtt. Transition to basal/prandial/SSI as per ICU. IM assistance to be requested once on PCU. Hx breast CA - Anastrozole to resume when appropriate. Plan: Remove TCPWs. Remove mediastinal drain. Stop dobutamine. Restart Coreg 3.125 mg BID. Cont Lasix 40 IV daily. Addtl bolus Lasix prn CVP > 18. Colloid prn CVP < 10. Cont inc activity as tolerated. May be able to tx to PCU tomorrow. 11/06/16 08:22 Subjective: Awake and more alert. Walked a bit without dizziness. Satisfactory analgesia. No nausea. No appetite or thirst. Objective: Vital Signs Temp Pulse Resp BP Pulse Ox 36.9 C 116 H 20 155/78 H 97 11/06/16 05:59 11/06/16 05:59 11/06/16 05:59 11/06/16 05:59 11/06/16 05:59 Laboratory Results 11/06/16 04:20 11/06/16 04:20 11/05/16 11/06/16 11/07/16 05:59 05:59 05:59 Intake Total 1440 264.3 Output Total 2135 1385 Balance -695 -1120.7 PT 21.0 SEC (12.0-15.0) H 11/05/16 05:50 INR 1.80 (0.83-1.16) H 11/05/16 05:50 PA cath out and Levo off yest. Dobut down to 2 mcg earlier this am, now off. Rhythm ST w PVCs. MAPs > 80. Excellent sats on 2 Lpm O2. Mediastinal drain at removal criteria. CXR-> min pulm vasc congestion, no undrained effusions Adequate I/Os. +7.5 kg overall. Platelets appear to be rebounding. HIT neg. Physical Exam - Physical Exam General Appearance: alert, no apparent distress Respiratory: crackles (bases), other (Blakes x 3 to bulb suction, serosang drainage.) Cardiac/Chest: regular rate, rhythm, tachycardia, other (Sternum grossly stable. Sternotomy and thigh venots CDI. A&V wires intact.) Peripheral Pulses: 2+: dorsalis-pedis (R), dorsalis-pedis (L) Abdomen: non-tender, soft Skin: warm/dry Extremities: swelling (1+ gen) ICD10 Worksheet Patient Problems: Problems Problem Status Onset Acute blood loss anemia Acute S/P CABG x 4 Acute ~11/03/16 CAD, multiple vessel Chronic Dilated cardiomyopathy Chronic
--- NOTE | 2016-11-06 08:30 | PDINTPN ---
Marketing Designer Progress Note Assessment/Plan: Assessment: Status post open heart surgery, CABG 11/03. Blood pressure improving. On dobutamine. Off Levophed, and nitroglycerin. IABP pulled postop day 2. Congestive heart failure/ICM: Ejection fraction is about 15% on echo 11/05. Postoperative respiratory insufficiency. Secondary to congestive heart failure , atelectasis. Extubated 11/05. On 2 L, doing well. Increased shortness of breath today probably multifactorial and secondary to the fact that she is doing more therapies. No evidence of significant congestive heart failure on x- ray today. No evidence of pneumonia or bronchitis. On 2 L. Acute blood-loss anemia. Hematocrit 30. Follow. Chest tube drainage slower. History of obstructive sleep apnea. Not requiring CPAP currently. No evidence of significant obstructive events overnight per nursing/RT. History of multiple medical problems including hypertension, hyperlipidemia, PVD etc. Metabolic: On replacement protocols, sliding scale insulin coverage. DVT: On aspirin, Lovenox on hold. GI prophylaxis: Pantoprazole. Nutrition: For swallow evaluation today then orals as indicated. Plan: Continue support in the intensive care unit. Follow laboratory, x-ray. Wean dobutamine as tolerated, Lasix as needed. Increase mobilization. Continue bronchopulmonary therapies. 30 minutes of clinic time spent directly with the patient. Discussed with respiratory, CVS, and the ICU multi disciplinary team. Subjective: Up in the chair. Doing okay. Denies significant chest pain. Does complain of increased shortness of breath today. Some cough, little mucus. Objective: Vital Signs Temp Pulse Resp BP Pulse Ox 36.9 C 116 H 20 155/78 H 97 11/06/16 05:59 11/06/16 05:59 11/06/16 05:59 11/06/16 05:59 11/06/16 05:59 Laboratory Results 11/06/16 04:20 11/06/16 04:20 11/05/16 11/06/16 11/07/16 05:59 05:59 05:59 Intake Total 1440 264.3 Output Total 2135 1385 Balance -695 -1120.7 PT 21.0 SEC (12.0-15.0) H 11/05/16 05:50 INR 1.80 (0.83-1.16) H 11/05/16 05:50 Physical Exam - Physical Exam General Appearance: alert, no apparent distress, other (In chair.) EENT: PERRL/EOMI, other (Nasal cannula at 2 L) Neck: normal inspection (No obvious jugular venous distension. Central line in place, right neck) Respiratory: lungs clear (Anteriorly), decreased breath sounds (At bases, especially on the right), rales (Few rales at left base), rhonchi, No wheezing Cardiac/Chest: tachycardia (Sinus, with ectopy) Abdomen: normal bowel sounds, non-tender, soft Pelvic Exam: other (Vinson catheter in place, good urine output) Skin: warm/dry, pallor Extremities: pedal edema (Trace, SCDs in place) Neuro/Psych: no motor/sensory deficits, No cognition abnormalities ICD10 Worksheet Patient Problems: Problems Problem Status Onset Acute blood loss anemia Acute S/P CABG x 4 Acute ~11/03/16 Dilated cardiomyopathy Chronic CAD, multiple vessel Chronic
[2016-11-06] MEDS: CARVEDILOL 3.125 MG TAB PO SCH ×2 (10:10→18:23)
[2016-11-06] MEDS: FUROSEMIDE 40 MG/4 ML VIAL IVP SCH (10:11)
[2016-11-06] MEDS: SENNOSIDES/DOCUSATE SODIUM TAB PO SCH ×2 (10:11→21:40)
[2016-11-06] MEDS: ASPIRIN 81 MG CHEWABLE TAB PO SCH (10:11)
[2016-11-06] MEDS ORDERED: traMADol 50 MG TAB PO PRN (18:00)
[2016-11-06 20:33] LABS: POTASSIUM 3.9 mEq/L (3.5-5.2)
[2016-11-06] MEDS ORDERED: POTASSIUM CL 10 MEQ TAB PO ONE (21:00)
[2016-11-06] MEDS: VENLAFAXINE XR 150 MG CAP PO SCH (21:40)
[2016-11-06] MEDS: FAMOTIDINE 20 MG TAB PO SCH (21:40)
[2016-11-07 00:53] LABS: POTASSIUM 4.1 mEq/L (3.5-5.2)
[2016-11-07 05:39] LABS: ANION GAP 12 mEq/L (8-16); CALCIUM 9.3 mg/dL (8.5-10.4); CARBON DIOXIDE 29 mEq/l (22-31); CHLORIDE 105 mEq/L (97-110); CREATININE 0.8 mg/dL (0.6-1.0); GLOMERULAR FILTRATION RATE > 60; GLUCOSE 165 mg/dL (70-100); POTASSIUM 4.3 mEq/L (3.5-5.2); SODIUM 146 mEq/L (134-144)
[2016-11-07] MEDS: INSULIN REGULAR, HUMAN 100 UNIT/1 ML VIAL STANDARD SC SCH ×4 (05:57→21:32)
--- NOTE | 2016-11-07 07:24 | SOAPPROG ---
SOAP Progress Note Assessment/Plan: POD#4 CABG x 4 (GONZALEZ-LAD, SV-D1, SV-PLC, SV-PLR), EVH bilat thighs, prophylactic AtriClip ligation left atrial appendage, RCF IABP 1:1 Severe CAD with severe LVSD/ISCM - No significant change in LVEF post 4 vessel revasc. Secondary prevention w ASA, BB, and statin when appropriate. Acute systolic and diastolic CHF, class IV - Globally hypokinetic LV, w preop LVEF 15-20%, LVEDP 22. Medically stabilized with pressor support and diuresis prior to surgery. Successful separation from CPB on combo vasoactive support and IABP. Balloon pump removed POD#1. Drips steadily weaned. Bedside echo notable for LVEF 20-25% on low dose dobut. Adequately diuresing moderate fluid overload with stable renal fx. No sustained tachyarrhythmias. AF prophylaxis with BB as allowed by BP. Staggered reintroduction of heart failure regimen as tolerated. Hx NSVT preop - Postop rhythm ST with freq PVCs, occ PACs and rare 4-8 beat runs NSVT. Lifevest prior to discharge. ICD eval in 3 mo. Acute postoperative respiratory insufficiency - Kept intubated and sedated for IABP tolerance. Subsequent slow vent wean well tolerated and extubated without incident. No apparent focal neuro deficits. SMOKED MEAT PREPARER on 11/06 cleared for meds to be crushed in puree. Re-evaluation today for further advancement. Acute expected blood loss anemia w thrombocytopenia - Stable s/p 3u PRBC intraop. No evidence active bleeding. Precautionary HIT neg. Platelets with rebound > 100. VTE prophylaxis with heparin SQ to start today. DM2, controlled - By preop A1c of 7.3%. Postop hyperglycemia managed with insulin gtt. Transition to basal/prandial/SSI as per ICU. IM assistance to be requested once on PCU. Hx breast CA - Anastrozole to resume when appropriate. Subjective: Denies CP/SOB. Would like to eat this morning although experiences coughs when swallowing pills. Objective: Vital Signs Temp Pulse Resp BP Pulse Ox 37.3 C 113 H 14 136/93 H 95 11/07/16 04:00 11/07/16 05:00 11/07/16 05:00 11/07/16 05:00 11/07/16 05:00 Laboratory Results 11/07/16 05:20 11/07/16 05:20 11/06/16 11/07/16 11/08/16 05:59 05:59 05:59 Intake Total 264.3 Output Total 1385 1755 Balance -1120.7 -1755 PT 21.0 SEC (12.0-15.0) H 11/05/16 05:50 INR 1.80 (0.83-1.16) H 11/05/16 05:50 Physical Exam - Physical Exam General Appearance: WD/WN, alert, no apparent distress EENT: No scleral icterus (R), No scleral icterus (L) Neck: normal inspection Respiratory: No respiratory distress Cardiac/Chest: regular rate, rhythm, extra beats (VPCs) Abdomen: non-tender, soft, No distended Skin: normal color, warm/dry Extremities: No pedal edema Neuro/Psych: no motor/sensory deficits, alert, normal mood/affect, oriented x 3 ICD10 Worksheet Patient Problems: Problems Problem Status Onset Acute blood loss anemia Acute S/P CABG x 4 Acute ~11/03/16 CAD, multiple vessel Chronic Dilated cardiomyopathy Chronic
[2016-11-07] MEDS: ASPIRIN 81 MG CHEWABLE TAB PO SCH (09:26)
[2016-11-07] MEDS: VENLAFAXINE XR 150 MG CAP PO SCH ×2 (09:26→21:33)
[2016-11-07] MEDS: FAMOTIDINE 20 MG TAB PO SCH ×2 (09:26→21:32)
[2016-11-07] MEDS: FUROSEMIDE 40 MG/4 ML VIAL IVP SCH (09:26)
[2016-11-07] MEDS: CARVEDILOL 3.125 MG TAB PO SCH (09:26)
[2016-11-07] MEDS: SENNOSIDES/DOCUSATE SODIUM TAB PO SCH ×2 (09:31→21:33)
--- NOTE | 2016-11-07 12:21 | SOAPPROG ---
SOAP Progress Note Assessment/Plan: Assessment: Plan: Subjective: Afebrile BP 130 syst P=80 sinu, s w/ PACs and PVCs Good UO Plt up BMP OK Lungs bibasilar crackles Cor irreg w/o m Wound clean A and O. Feels fine Stable. Increase Lopressor, dc tubes Objective: Vital Signs Temp Pulse Resp BP Pulse Ox 36.7 C 90 18 112/88 H 98 11/07/16 08:00 11/07/16 11:00 11/07/16 11:00 11/07/16 11:00 11/07/16 11:00 Laboratory Results 11/07/16 05:20 11/07/16 05:20 11/06/16 11/07/16 11/08/16 05:59 05:59 05:59 Intake Total 264.3 Output Total 1385 1755 90 Balance -1120.7 -1755 -90 PT 21.0 SEC (12.0-15.0) H 11/05/16 05:50 INR 1.80 (0.83-1.16) H 11/05/16 05:50 ICD10 Worksheet Patient Problems: Problems Problem Status Onset Acute blood loss anemia Acute S/P CABG x 4 Acute ~11/03/16 Dilated cardiomyopathy Chronic CAD, multiple vessel Chronic
[2016-11-07] MEDS: AMIODARONE HCL 200 MG TAB PO SCH ×2 (13:28→21:32)
[2016-11-07] MEDS ORDERED: TORSEMIDE 20 MG TAB PO SCH (15:00)
[2016-11-07] MEDS: HEPARIN 5,000 UNIT/0.5 ML SYR SC SCH ×2 (15:22→21:33)
[2016-11-07] MEDS: metFORMIN HCL 500 MG TAB PO SCH (18:08)
[2016-11-07] MEDS: CARVEDILOL 6.25 MG TAB PO SCH (18:08)
--- NOTE | 2016-11-07 18:17 | PDINTPN ---
Laundry Machine Tender Progress Note Assessment/Plan: Assessment: Status post open heart surgery, CABG 11/03. Hemodynamically stable. On dobutamine. Off Levophed, and nitroglycerin. IABP pulled postop day 2. Congestive heart failure/ICM: Ejection fraction is about 15% on echo 11/05. Postoperative respiratory insufficiency. Secondary to congestive heart failure , atelectasis. Extubated 11/05. On 2 L, doing well. Increased shortness of breath today probably multifactorial and secondary to the fact that she is doing more therapies. No evidence of significant congestive heart failure on x- ray today. No evidence of pneumonia or bronchitis. On 2 L. Acute blood-loss anemia. Hematocrit 30 yesterday. Follow tomorrow. Chest tubes still draining. History of obstructive sleep apnea. Not requiring CPAP currently. No evidence of significant obstructive events overnight per nursing/RT. History of multiple medical problems including hypertension, hyperlipidemia, PVD etc. Metabolic: On replacement protocols, sliding scale insulin coverage. DVT: On aspirin, Lovenox on hold. GI prophylaxis: Pantoprazole. Nutrition: Past swallow evaluation, now eating. Plan: Continue support in the intensive care unit. Follow laboratory, x-ray. Continue gentle Lasix diuresis as needed. Increase mobilization. Continue bronchopulmonary therapies. 25 minutes of CC time spent directly with the patient. Discussed with patient and her , CVS, and the ICU multi disciplinary team. Subjective: Improved today. Able to work more with physical therapy. Denies significant shortness of breath. Overall, feels better. Pain not a significant issue. Objective: Vital Signs Temp Pulse Resp BP Pulse Ox 36.5 C 95 21 H 140/60 H 100 11/07/16 16:00 11/07/16 17:00 11/07/16 17:00 11/07/16 17:00 11/07/16 17:00 Laboratory Results 11/07/16 05:20 11/07/16 05:20 11/06/16 11/07/16 11/08/16 05:59 05:59 05:59 Intake Total 264.3 120 Output Total 1385 1755 1535 Balance -1120.7 -1755 -1415 PT 21.0 SEC (12.0-15.0) H 11/05/16 05:50 INR 1.80 (0.83-1.16) H 11/05/16 05:50 CXR: Large heart. Lung samaniego are clear. Lines in good position Physical Exam - Physical Exam General Appearance: alert, no apparent distress EENT: other (Nasal cannula at 2 L) Neck: normal inspection (No obvious jugular venous distension) Respiratory: lungs clear (Anteriorly), decreased breath sounds (At bases, few rales, no rub), rales, No pleural rub Cardiac/Chest: regular rate, rhythm (With ectopy), systolic murmur, other (Two mediastinal tubes/chest tubes remain in place anteriorly. Still with significant output serosanguineous) Abdomen: normal bowel sounds, non-tender, soft Pelvic Exam: other (Vinson catheter removed. Good) Skin: warm/dry, pallor Extremities: pedal edema (Trace +) Neuro/Psych: no motor/sensory deficits, No cognition abnormalities ICD10 Worksheet Patient Problems: Problems Problem Status Onset Acute blood loss anemia Acute S/P CABG x 4 Acute ~11/03/16 Dilated cardiomyopathy Chronic CAD, multiple vessel Chronic
[2016-11-07 18:42] LABS: POTASSIUM 3.9 mEq/L (3.5-5.2)
[2016-11-07] MEDS: ACETAMINOPHEN 325 MG TAB PO PRN (18:44)
[2016-11-07] MEDS ORDERED: POTASSIUM CL 10 MEQ TAB PO ONE (19:29)
[2016-11-08] MEDS: ONDANSETRON 4 MG/2 ML VIAL IVP PRN ×3 (00:42→18:29)
[2016-11-08 01:13] LABS: POTASSIUM 3.8 mEq/L (3.5-5.2)
[2016-11-08] MEDS ORDERED: POTASSIUM Cl (KCl) 50 ML IV ONE (01:21)
[2016-11-08] MEDS: METOCLOPRAMIDE 10 MG/2 ML VIAL IVP PRN ×2 (04:25→21:07)
[2016-11-08 04:56] LABS: HEMOGLOBIN 10.7 g/dL (12.6-16.3)
[2016-11-08 05:20] LABS: ANION GAP 10 mEq/L (8-16); CALCIUM 9.4 mg/dL (8.5-10.4); CARBON DIOXIDE 30 mEq/l (22-31); CHLORIDE 104 mEq/L (97-110); CREATININE 1.1 mg/dL (0.6-1.0); GLOMERULAR FILTRATION RATE 48; GLUCOSE 179 mg/dL (70-100); MAGNESIUM 2.1 mg/dL (1.6-2.3); SODIUM 144 mEq/L (134-144)
--- NOTE | 2016-11-08 07:25 | SOAPPROG ---
SOAP Progress Note Assessment/Plan: POD#5 CABG x 4 (GONZALEZ-LAD, SV-D1, SV-PLC, SV-PLR), EVH bilat thighs, prophylactic AtriClip ligation left atrial appendage, RCF IABP 1:1 Severe CAD with severe LVSD/ISCM - No significant change in LVEF post 4 vessel revasc. Secondary prevention w ASA, BB, and statin when appropriate. Acute systolic and diastolic CHF, class IV - Globally hypokinetic LV, w preop LVEF 15-20%, LVEDP 22. Medically stabilized with pressor support and diuresis prior to surgery. Successful separation from CPB on combo vasoactive support and IABP. Balloon pump removed POD#1. Drips steadily weaned. Bedside echo notable for LVEF 20-25% on low dose dobut. Adequately diuresing moderate fluid overload with stable renal fx. No sustained tachyarrhythmias. AF prophylaxis with BB and amiodarone. Staggered reintroduction of heart failure regimen as tolerated. Hx NSVT preop - Postop rhythm ST with freq PVCs, occ PACs and rare 4-8 beat runs NSVT. PO Amiodarone started 11/07 with reduction in PVCs. Lifevest prior to discharge. ICD eval in 3 mo. Acute postoperative respiratory insufficiency - Kept intubated and sedated for IABP tolerance. Subsequent slow vent wean well tolerated and extubated without incident. No apparent focal neuro deficits. NUCLEAR EQUIPMENT DESIGN ENGINEER cleared for regular diet with thin liquids. Dysphagia diet ordered as a precaution. Development of right- sided pleural effusion. Monitor for now. Acute expected blood loss anemia w thrombocytopenia - Stable s/p 3u PRBC intraop. No evidence active bleeding. Precautionary HIT neg. Platelets with rebound > 100. VTE prophylaxis with heparin SQ. DM2, controlled - By preop A1c of 7.3%. Postop hyperglycemia managed with insulin gtt. Transition to basal/prandial/SSI underway. IM assistance requested for further mgmt. Hx breast CA - Anastrozole resumed. Subjective: Feels well this morning. Denies CP/SOB. Has been ambulating and tolerating PO. Objective: Vital Signs Temp Pulse Resp BP Pulse Ox 36.6 C 82 22 H 116/63 100 11/08/16 04:00 11/08/16 06:00 11/08/16 06:00 11/08/16 06:00 11/08/16 06:00 Laboratory Results 11/08/16 04:43 11/08/16 04:43 11/07/16 11/08/16 11/09/16 05:59 05:59 05:59 Intake Total 340 Output Total 1755 1710 Balance -1755 -1370 PT 21.0 SEC (12.0-15.0) H 11/05/16 05:50 INR 1.80 (0.83-1.16) H 11/05/16 05:50 Physical Exam - Physical Exam General Appearance: WD/WN, alert, no apparent distress EENT: No scleral icterus (R), No scleral icterus (L) Neck: normal inspection Respiratory: normal breath sounds, other (diminished on right-side ) Cardiac/Chest: regular rate, rhythm, extra beats Abdomen: non-tender, soft, No distended Skin: normal color, warm/dry Extremities: No pedal edema Neuro/Psych: no motor/sensory deficits, alert, normal mood/affect, oriented x 3 ICD10 Worksheet Patient Problems: Problems Problem Status Onset Acute blood loss anemia Acute S/P CABG x 4 Acute ~11/03/16 CAD, multiple vessel Chronic Dilated cardiomyopathy Chronic
--- NOTE | 2016-11-08 07:36 | SOAPPROG ---
SOAP Progress Note Assessment/Plan: Assessment: Plan: Subjective: Afebrile NSR w/ fewer PVCs BP 110 syst Good UO. Weight down >2kg Cr 1.1 BUN 47 CXR increased right effusion Wound clean Lungs diminished w/ BBS right base Cor RRR No ankle edema Plan - decrease diuretics, transfer Objective: Vital Signs Temp Pulse Resp BP Pulse Ox 36.6 C 82 22 H 116/63 100 11/08/16 04:00 11/08/16 06:00 11/08/16 06:00 11/08/16 06:00 11/08/16 06:00 Laboratory Results 11/08/16 04:43 11/08/16 04:43 11/07/16 11/08/16 11/09/16 05:59 05:59 05:59 Intake Total 340 Output Total 1755 1710 Balance -1755 -1370 PT 21.0 SEC (12.0-15.0) H 11/05/16 05:50 INR 1.80 (0.83-1.16) H 11/05/16 05:50 ICD10 Worksheet Patient Problems: Problems Problem Status Onset Acute blood loss anemia Acute S/P CABG x 4 Acute ~11/03/16 CAD, multiple vessel Chronic Dilated cardiomyopathy Chronic
[2016-11-08] MEDS: VENLAFAXINE XR 150 MG CAP PO SCH ×2 (08:11→21:14)
[2016-11-08] MEDS: INSULIN REGULAR, HUMAN 100 UNIT/1 ML VIAL STANDARD SC SCH ×4 (08:11→21:13)
[2016-11-08] MEDS: ASPIRIN 81 MG CHEWABLE TAB PO SCH (08:11)
[2016-11-08] MEDS: CARVEDILOL 6.25 MG TAB PO SCH ×2 (08:11→18:17)
[2016-11-08] MEDS: HEPARIN 5,000 UNIT/0.5 ML SYR SC SCH ×3 (08:11→21:13)
[2016-11-08] MEDS: AMIODARONE HCL 200 MG TAB PO SCH ×2 (08:11→21:14)
[2016-11-08] MEDS: FAMOTIDINE 20 MG TAB PO SCH ×2 (08:12→21:14)
[2016-11-08] MEDS: metFORMIN HCL 500 MG TAB PO SCH ×2 (08:12→18:18)
[2016-11-08] MEDS ORDERED: HYDROCODONE/APAP 5/325 TAB PO PRN (08:21)
[2016-11-08] MEDS: SENNOSIDES/DOCUSATE SODIUM TAB PO SCH ×2 (08:31→21:14)
[2016-11-08] MEDS ORDERED: TORSEMIDE 20 MG TAB PO SCH (09:00)
[2016-11-08] MEDS ORDERED: POTASSIUM CL 20 MEQ TAB PO SCH (09:00)
[2016-11-08] MEDS: ANASTROZOLE 1 MG TAB PO SCH (11:59)
--- NOTE | 2016-11-08 15:16 | PDINTPN ---
Geology Technician Progress Note Assessment/Plan: Assessment: Status post open heart surgery, CABG 11/03. Hemodynamically stable. Off drips. IABP pulled postop day 2. Doing well. Congestive heart failure/ICM: Ejection fraction is about 15% on echo 11/05. Postoperative respiratory insufficiency. Secondary to congestive heart failure , atelectasis. Extubated 11/05. On 2 L, doing well. Increased shortness of breath today probably multifactorial and secondary to the fact that she is doing more therapies. No evidence of significant congestive heart failure on x- ray today. No evidence of pneumonia or bronchitis. On 2 L. Acute blood-loss anemia. Hematocrit 30 yesterday. Follow tomorrow. Chest tubes still draining. History of obstructive sleep apnea. Not requiring CPAP currently. No evidence of significant obstructive events overnight per nursing/RT. History of multiple medical problems including hypertension, hyperlipidemia, PVD etc. Metabolic: On replacement protocols. IDDM: On sliding scale insulin coverage. Glucoses remain high. I will restart Lantus at 20 units subcu twice daily, 1st dose tonight, and oral BID Amaryl. I will not restart twice daily NovoLog at this time. Glucoses will be followedl. DVT: On aspirin, Lovenox on hold. GI prophylaxis: Pantoprazole. Nutrition: Past swallow evaluation, now eating. Plan: Transfer to PCU today. Restart Lantus and Amaryl - please see comments above. Follow glucoses. Follow laboratory intermittently. Follow input and output, with Lasix diuresis as needed. Increase activity. Continue IS. 30 minutes of CC time spent directly with the patient. Discussed with nursing, pharmacy, and the ICU multi disciplinary team. Subjective: Doing well, stronger, working with PT. Denies shortness of breath or significant pain. For transfer to PCU. Objective: Vital Signs Temp Pulse Resp BP Pulse Ox 36.6 C 78 17 112/61 98 11/08/16 12:00 11/08/16 12:00 11/08/16 12:00 11/08/16 12:00 11/08/16 12:00 Laboratory Results 11/08/16 04:43 11/08/16 04:43 11/07/16 11/08/16 11/09/16 05:59 05:59 05:59 Intake Total 340 Output Total 1755 1710 Balance -1755 -1370 PT 21.0 SEC (12.0-15.0) H 11/05/16 05:50 INR 1.80 (0.83-1.16) H 11/05/16 05:50 Laboratory Tests 11/07/16 11/08/16 11/08/16 21:15 07:27 11:32 POC Glucose 260 H 192 H 306 H Physical Exam - Physical Exam General Appearance: alert, no apparent distress EENT: other ( Nasal cannula at 2 L, 98%.) Neck: normal inspection ( No obvious JVD) Respiratory: lungs clear ( anteriorly), decreased breath sounds ( at bases, few rales) Cardiac/Chest: regular rate, rhythm ( with ectopy) Abdomen: normal bowel sounds, non-tender, soft Pelvic Exam: other ( Vinson catheter out) Skin: normal color, warm/dry Extremities: pedal edema ( trace +) Neuro/Psych: no motor/sensory deficits ( strength improving), No cognition abnormalities ICD10 Worksheet Patient Problems: Problems Problem Status Onset Acute blood loss anemia Acute S/P CABG x 4 Acute ~11/03/16 Dilated cardiomyopathy Chronic CAD, multiple vessel Chronic
[2016-11-08 17:27] LABS: ANION GAP 14 mEq/L (8-16); CALCIUM 9.2 mg/dL (8.5-10.4); CARBON DIOXIDE 27 mEq/l (22-31); CHLORIDE 102 mEq/L (97-110); CREATININE 1.2 mg/dL (0.6-1.0); GLOMERULAR FILTRATION RATE 43; GLUCOSE 255 mg/dL (70-100); POTASSIUM 4.6 mEq/L (3.5-5.2); SODIUM 143 mEq/L (134-144)
[2016-11-08] MEDS: GLIMEPIRIDE 2 MG TAB PO SCH (18:16)
[2016-11-08] MEDS ORDERED: 1/2 NS 1,000 ML IV SCH (20:00)
[2016-11-08] MEDS: INSULIN GLARGINE 100 UNITS/ML SYRINGE SC SCH (21:31)
[2016-11-09] MEDS: ONDANSETRON 4 MG/2 ML VIAL IVP PRN ×2 (04:16→08:26)
[2016-11-09 04:26] LABS: ANION GAP 9 mEq/L (8-16); CALCIUM 9.4 mg/dL (8.5-10.4); CARBON DIOXIDE 29 mEq/l (22-31); CHLORIDE 102 mEq/L (97-110); CREATININE 1.5 mg/dL (0.6-1.0); GLOMERULAR FILTRATION RATE 33; GLUCOSE 97 mg/dL (70-100); POTASSIUM 4.6 mEq/L (3.5-5.2); SODIUM 140 mEq/L (134-144)
[2016-11-09] MEDS: HEPARIN 5,000 UNIT/0.5 ML SYR SC SCH ×3 (06:01→22:08)
--- NOTE | 2016-11-09 07:36 | SOAPPROG ---
SOAP Progress Note Assessment/Plan: POD#6 CABG x 4 (GONZALEZ-LAD, SV-D1, SV-PLC, SV-PLR), EVH bilat thighs, prophylactic AtriClip ligation left atrial appendage, RCF IABP 1:1 Severe CAD with severe LVSD/ISCM - No significant change in LVEF post 4 vessel revasc. Secondary prevention w ASA, BB, and statin when appropriate. Acute systolic and diastolic CHF, class IV - Globally hypokinetic LV, w preop LVEF 15-20%, LVEDP 22. Medically stabilized with pressor support and diuresis prior to surgery. Successful separation from CPB on combo vasoactive support and IABP. Balloon pump removed POD#1. Drips steadily weaned. Bedside echo notable for LVEF 20-25% on low dose dobut. No sustained tachyarrhythmias. AF prophylaxis with amiodarone. Staggered reintroduction of heart failure regimen as tolerated. Hx NSVT preop - Postop rhythm ST with freq PVCs, occ PACs and rare 4-8 beat runs NSVT. PO Amiodarone started 11/07 with reduction in PVCs. Lifevest prior to discharge. ICD eval in 3 mo. Acute postoperative respiratory insufficiency - Kept intubated and sedated for IABP tolerance. Subsequent slow vent wean well tolerated and extubated without incident. No apparent focal neuro deficits. COKE PRODUCTION HEATER cleared for regular diet with thin liquids. Dysphagia diet ordered as a precaution. Development of right- sided pleural effusion for drainage today with Dr. Ambrose. Acute expected blood loss anemia w thrombocytopenia - Stable s/p 3u PRBC intraop. No evidence active bleeding. Precautionary HIT neg. Platelets with rebound > 100. VTE prophylaxis with heparin SQ. DM2, controlled - By preop A1c of 7.3%. Postop hyperglycemia managed with insulin gtt. Transition to basal/prandial/SSI underway. IM assistance requested for further mgmt. Hx breast CA - Anastrozole to be resumed when appropriate. DREW with oliguria - Bump in Cr from normal to 1.5 with low UOP despite fluid resuscitation. Dopamine ordered to increase contractility/renal perfusion. Diuretics stopped. Will transfer back to ICU for close monitoring. Access - TLC present from prior to [facility] - PICC to be placed this morning Subjective: Feeling anxious this morning. Harder to take deep breaths. Orientated. Objective: Vital Signs Temp Pulse Resp BP Pulse Ox 36.7 C 86 22 H 118/62 93 11/09/16 07:27 11/09/16 07:27 11/09/16 07:27 11/09/16 07:27 11/09/16 07:27 Laboratory Results 11/08/16 04:43 11/09/16 04:05 11/08/16 11/09/16 11/10/16 05:59 05:59 05:59 Intake Total 340 1625 Output Total 1710 Balance -1370 1625 PT 21.0 SEC (12.0-15.0) H 11/05/16 05:50 INR 1.80 (0.83-1.16) H 11/05/16 05:50 Physical Exam - Physical Exam General Appearance: alert, mild distress, obese EENT: No scleral icterus (R), No scleral icterus (L) Neck: normal inspection Respiratory: No respiratory distress Cardiac/Chest: regular rate, rhythm, extra beats Abdomen: non-tender, soft, No distended Skin: normal color, warm/dry Extremities: No pedal edema Neuro/Psych: no motor/sensory deficits, alert, normal mood/affect, oriented x 3 ICD10 Worksheet Patient Problems: Problems Problem Status Onset Acute blood loss anemia Acute S/P CABG x 4 Acute ~11/03/16 CAD, multiple vessel Chronic Dilated cardiomyopathy Chronic
[2016-11-09] MEDS: FAMOTIDINE 20 MG TAB PO SCH (08:23)
[2016-11-09] MEDS: SENNOSIDES/DOCUSATE SODIUM TAB PO SCH ×2 (08:23→22:07)
[2016-11-09] MEDS: AMIODARONE HCL 200 MG TAB PO SCH (08:23)
[2016-11-09] MEDS: VENLAFAXINE XR 150 MG CAP PO SCH (08:23)
[2016-11-09] MEDS: ASPIRIN 81 MG CHEWABLE TAB PO SCH (08:24)
[2016-11-09 08:59] LABS: HEMATOCRIT 32.6 % (38.0-47.0); HEMOGLOBIN 10.3 g/dL (12.6-16.3); MEAN CELL HEMOGLOBIN 31.9 pg (27.9-34.1); MEAN CELL HEMOGLOBIN CONCENTR. 31.6 g/dL (32.4-36.7); MEAN CELL VOLUME 100.9 fL (81.5-99.8); RED BLOOD CELL COUNT 3.23 10^6/uL (4.18-5.33); RED CELL DISTRIBUTION WIDTH 15.1 % (11.5-15.2)
[2016-11-09] MEDS: INSULIN REGULAR, HUMAN 100 UNIT/1 ML VIAL STANDARD SC SCH ×4 (09:21→22:07)
[2016-11-09 09:27] LABS: ALBUMIN 3.4 g/dL (3.5-5.0); BILIRUBIN,TOTAL 1.3 mg/dL (0.1-1.4); BILIRUBIN-CONJUGATED 0.9 mg/dL (0.0-0.5); BILIRUBIN-UNCONJUGATED 0.4 mg/dL (0.0-1.1); TOTAL PROTEIN 5.6 g/dL (6.3-8.2)
--- NOTE | 2016-11-09 12:28 | PDINTPN ---
Optical Sales Associate Progress Note Assessment/Plan: Assessment: Status post open heart surgery, CABG 11/03. IABP pulled postop day 2. Moved back to the intensive care unit today secondary to decreased urine output and rising creatinine along with increased shortness of breath. Chest x-ray shows an enlarging right pleural effusion. Congestive heart failure/ICM: Ejection fraction is about 15% on echo 11/05. Postoperative respiratory insufficiency. Secondary to congestive heart failure , atelectasis. Extubated 11/05. On 2 L, stable. Increased shortness of breath today secondary in part to the enlarging right pleural effusion. Congestive heart failure/cardiomyopathy may be playing a role.. No evidence of pneumonia or bronchitis. For thoracentesis today after ultrasound marking. Acute blood-loss anemia. Hematocrit 32. Stable. Acute renal failure. Decreased urine output and increased creatinine. Etiology unclear. On dopamine. CVP pending. Elevated liver function studies: New over the last several days. Query possible drug reaction, shock liver, other etiologies. Abdomen is benign. Leukocytosis: White blood cell count increased today. No obvious evidence for infection. Afebrile. Will follow. History of obstructive sleep apnea. Not requiring CPAP currently. No evidence of significant obstructive events overnight per nursing/RT. History of multiple medical problems including hypertension, hyperlipidemia, PVD etc. Metabolic: On replacement protocols. IDDM: On sliding scale insulin coverage and Lantus at 20 units subcu twice daily. Glucoses will continue to be followed. DVT: On aspirin, subcu heparin. GI prophylaxis: Pantoprazole. Nutrition: Passed swallow evaluation previously, eating but appetite and intake remain poor. Plan: Patient to remain in the ICU for now. Back on dopamine. I will have ultrasound mario her right pleural effusion. If significant, will do right thoracentesis today. Follow urinary output, chest x-ray, laboratory, LFTs, hemodynamics and clinical status. Will need renal consultation if renal function continues to deteriorate. 40 minutes of CC time spent directly with the patient, not including thoracentesis. Discussed with nursing, pharmacy, CVS, and the ICU multi disciplinary team. Subjective: Complains of shortness of breath. Moved back to the ICU this morning secondary to decreasing urine output and need for dopamine. She does complain of increased shortness of breath. Denies significant pain. Objective: Vital Signs Temp Pulse Resp BP Pulse Ox 36.7 C 86 22 H 118/62 93 11/09/16 07:27 11/09/16 07:27 11/09/16 07:27 11/09/16 07:27 11/09/16 07:27 Laboratory Results 11/09/16 08:43 11/09/16 04:05 11/08/16 11/09/16 11/10/16 05:59 05:59 05:59 Intake Total 340 1625 Output Total 1710 Balance -1370 1625 PT 21.0 SEC (12.0-15.0) H 11/05/16 05:50 INR 1.80 (0.83-1.16) H 11/05/16 05:50 Laboratory Tests 11/08/16 11/09/16 11/09/16 20:39 04:05 04:05 POC Glucose 272 H Calcium 9.4 Total Bilirubin 1.3 AST 1334 H ALT 616 H Albumin 3.4 L 11/09/16 07:17 POC Glucose 106 H Calcium Total Bilirubin AST ALT Albumin CXR: Increased right pleural effusion. Large heart. Clear on the left. Physical Exam - Physical Exam General Appearance: alert, mild distress EENT: other (Nasal cannula or OxyMask in place at 2-3 L) Neck: normal inspection (Jugular venous distension present) Respiratory: lungs clear (Anteriorly), decreased breath sounds (At both bases, rales at left base, few. Decreased breath sounds with dullness at the right base), rales (Left base), No rhonchi, No wheezing, No pleural rub Cardiac/Chest: regular rate, rhythm (Sinus, with ectopy.) Abdomen: normal bowel sounds, non-tender, soft Pelvic Exam: other (No Vinson catheter. Decreased urine output overnight.) Skin: normal color, warm/dry Extremities: pedal edema (Trace +) Neuro/Psych: no motor/sensory deficits (Nonfocal, Globally weak), No cognition abnormalities ICD10 Worksheet Patient Problems: Problems Problem Status Onset Acute blood loss anemia Acute S/P CABG x 4 Acute ~11/03/16 Dilated cardiomyopathy Chronic CAD, multiple vessel Chronic
[2016-11-09] MEDS ORDERED: FUROSEMIDE 40 MG/4 ML VIAL IVP ONE (12:40)
--- NOTE | 2016-11-09 14:08 | SOAPPROG ---
SOAP Progress Note Assessment/Plan: Assessment: Plan: Subjective: Moved to ICU secondary to SOB Started on DA renal dose Clearly more sdyspnea than yesterday Weight unchanged. UO 1425cc/24hr CVP 17 BP 118syst P=80 NSR w/ PVCs Cr up to 1.5 BUN 66 K+4.6 LFTs elevated On 6L simple mask O2sat 99% A and O Lungs scattered rhonchi and diminished 1/3 up on right Cor RRR w/o S3S4 Wound clean No ankle edema Abd soft +BS Plan - renal DA and diurese. Thoracentesis by petroleum engineering professor. Objective: Vital Signs Temp Pulse Resp BP Pulse Ox 36.7 C 86 22 H 118/62 93 11/09/16 07:27 11/09/16 07:27 11/09/16 07:27 11/09/16 07:27 11/09/16 07:27 Laboratory Results 11/09/16 08:43 11/09/16 04:05 11/08/16 11/09/16 11/10/16 05:59 05:59 05:59 Intake Total 340 1625 Output Total 1710 Balance -1370 1625 PT 21.0 SEC (12.0-15.0) H 11/05/16 05:50 INR 1.80 (0.83-1.16) H 11/05/16 05:50 ICD10 Worksheet Patient Problems: Problems Problem Status Onset Acute blood loss anemia Acute S/P CABG x 4 Acute ~11/03/16 CAD, multiple vessel Chronic Dilated cardiomyopathy Chronic
[2016-11-09 15:08] LABS: COLOR PALE YELLOW; LEUKOCYTE ESTERASE,URINE NEGATIVE (NEGATIVE); NITRITE,URINE NEGATIVE (NEGATIVE)
[2016-11-09 15:17] LABS: HYALINE CASTS 15-25 /lpf (0-1); MUCUS TRACE /lpf (NONE-1+); RBC,URINE 25-50 /hpf (0-3)
[2016-11-09 15:43] LABS: ANION GAP 15 mEq/L (8-16); CALCIUM 9.2 mg/dL (8.5-10.4); CARBON DIOXIDE 26 mEq/l (22-31); CHLORIDE 101 mEq/L (97-110); CREATININE 1.3 mg/dL (0.6-1.0); GLOMERULAR FILTRATION RATE 39; GLUCOSE 124 mg/dL (70-100); POTASSIUM 3.7 mEq/L (3.5-5.2); SODIUM 142 mEq/L (134-144)
[2016-11-09] MEDS: INSULIN GLARGINE 100 UNITS/ML SYRINGE SC SCH ×2 (16:32→22:02)
--- NOTE | 2016-11-09 16:34 | GPN ---
[f rep st] PROCEDURE NOTE DATE OF PROCEDURE: 11/09/2016 PROCEDURE PERFORMED: Right-sided thoracentesis. REASON FOR PROCEDURE: Increasing right-sided pleural effusion. PROCEDURE NOTE: The procedure was done in the patient's room in the intensive care unit. Appropria te time-out was performed. Informed consent was obtained from the patient and from the patient's fa hayden at different times. The procedure and its risks, including pneumothorax and bleeding, were exp lained. Following topical anesthesia with 1% lidocaine, via interspace 8-9 posteriorly on the right, the tho racentesis catheter was advanced into the patient's pleural effusion in the right chest. Approximat wesley 130 mL of red-tinged fluid was removed/serosanguineous fluid. No further fluid could be obtaine d. Appropriate samples were sent to the laboratory for analysis. ASSESSMENT: Successful small-volume right-sided thoracentesis. Chest x-ray is pending at the time of this dictation. /[id number]/MODL
[2016-11-09] MEDS ORDERED: PROTOCOL POTASSIUM 1 DOSE MISC PRN (17:18)
[2016-11-09] MEDS ORDERED: POTASSIUM CL 10 MEQ TAB PO ONE (17:20)
[2016-11-09 17:46] LABS: LD, PLEURAL FLUID 798 IU/L
[2016-11-10 05:17] LABS: HEMATOCRIT 30.4 % (38.0-47.0); HEMOGLOBIN 9.8 g/dL (12.6-16.3); MEAN CELL HEMOGLOBIN 32.1 pg (27.9-34.1); MEAN CELL HEMOGLOBIN CONCENTR. 32.2 g/dL (32.4-36.7); MEAN CELL VOLUME 99.7 fL (81.5-99.8); RED BLOOD CELL COUNT 3.05 10^6/uL (4.18-5.33); RED CELL DISTRIBUTION WIDTH 15.1 % (11.5-15.2)
[2016-11-10 05:25] LABS: APTT 31.6 SEC (23.0-38.0); PROTIME(PATIENT) 22.8 SEC (12.0-15.0)
[2016-11-10 05:31] LABS: ALANINE AMINOTRANSFERASE 424 IU/L (9-52); ALBUMIN 3.3 g/dL (3.5-5.0); ALKALINE PHOSPHATASE 177 IU/L (38-126); ANION GAP 15 mEq/L (8-16); ASPARTATE AMINOTRANSFERASE 460 IU/L (14-46); BILIRUBIN,TOTAL 1.5 mg/dL (0.1-1.4); BILIRUBIN-CONJUGATED 0.8 mg/dL (0.0-0.5); BILIRUBIN-UNCONJUGATED 0.7 mg/dL (0.0-1.1); CALCIUM 8.9 mg/dL (8.5-10.4); CARBON DIOXIDE 28 mEq/l (22-31); CHLORIDE 102 mEq/L (97-110); CREATININE 1.1 mg/dL (0.6-1.0); GLOMERULAR FILTRATION RATE 48; GLUCOSE 97 mg/dL (70-100); MAGNESIUM 1.8 mg/dL (1.6-2.3); POTASSIUM 3.3 mEq/L (3.5-5.2); SODIUM 145 mEq/L (134-144); TOTAL PROTEIN 5.5 g/dL (6.3-8.2)
[2016-11-10] MEDS: HEPARIN 5,000 UNIT/0.5 ML SYR SC SCH (05:59)
[2016-11-10] MEDS: POTASSIUM Cl (KCl) 50 ML IV SCH ×3 (05:59→07:48)
--- NOTE | 2016-11-10 06:45 | SOAPPROG ---
SOAP Progress Note Assessment/Plan: Assessment: POD#7 CABG x 4 (GONZALEZ-LAD, SV-D1, SV-PLC, SV-PLR), EVH bilat thighs, prophylactic AtriClip ligation left atrial appendage, RCF IABP 1:1 POD#1 Rt thoracentesis, 130 ml Vascular access LUE PICC Severe CAD with severe LVSD/ISCM - No significant change in LVEF post 4 vessel revasc. Secondary prevention w ASA, BB, and statin when appropriate. Acute systolic and diastolic CHF, class IV - Globally hypokinetic LV, w preop LVEF 15-20%, LVEDP 22. Medically stabilized with pressor support and diuresis prior to surgery. Successful separation from CPB on combo vasoactive support and IABP. Balloon pump removed POD#1. Drips steadily weaned. Bedside echo POD#2 notable for LVEF 20-25% on low dose dobut. No sustained tachyarrhythmias. AF prophylaxis with BB limited by marginal BP; use of amio limited by inc in LFTs. Staggered reintroduction of heart failure regimen as tolerated. Hx NSVT preop - Postop rhythm ST with freq PVCs, occ PACs and rare 4-8 beat runs NSVT. Amio started POD#4 with reduction in PVCs, but stopped d/t abnl LFTs. Lifevest prior to discharge. ICD eval in 3 mo. DREW with shock liver - Bump in Cr from normal to peak of 1.5 on POD#6. Assoc with inc transaminases and INR. Attributed to over-diuresis and relative hypotension. Normalizing after med adjustment, fluid resuscitation and low dose dopamine. Acute postoperative respiratory insufficiency - Kept intubated and sedated for IABP tolerance. Subsequent slow vent wean well tolerated and extubated POD#2 without incident. No apparent focal neuro deficits. Precautionary dysphagia diet (KILN FIRER clearance for regular diet w thin liq). Small volume thoracentesis of moderate sized appearing rt pl effusion yest. Remains dyspneic with activity with diminished basilar BS. Acute expected blood loss anemia w thrombocytopenia - Stable s/p 3u PRBC intraop. No evidence active bleeding. Precautionary HIT neg. Platelet counts appear to be rebounding. Remains auto-anticoagulated. DM2, controlled - By preop A1c of 7.3%. Postop hyperglycemia managed with insulin gtt. Transition to basal/prandial/SSI as per ICU. IM assistance to be requested once on PCU. Hx breast CA - Anastrozole to resume when appropriate. Plan: NC chest CT to assess rt hemithorax for clot vs fluid vs consolidation NPO (ice chips ok) for possible bronch later today. Cont dopamine @ 2mcg/kg/min. Bolus Lasix prn CVP > 18. Colloid prn CVP < 10. D/C churchill. Cont inc activity as tolerated. Keep in ICU today. 11/10/16 06:32 Subjective: Feels ok. Thirsty. Improving mobility but still easily breathless when walking. Objective: Vital Signs Temp Pulse Resp BP Pulse Ox 37.1 C 82 23 H 116/64 100 11/09/16 15:00 11/10/16 05:00 11/10/16 05:00 11/10/16 05:00 11/10/16 05:00 Microbiology 11/09/16 17:08 Gram Stain - Final Pleural Fluid - Aspirate Laboratory Results 11/10/16 05:05 11/10/16 05:05 11/09/16 11/10/16 11/11/16 05:59 05:59 05:59 Intake Total 1625 790 Output Total 2025 Balance 1625 -1235 PT 22.8 SEC (12.0-15.0) H 11/10/16 05:05 INR 2.00 (0.83-1.16) H 11/10/16 05:05 IVF at KVO, Dobut at 2 mcg. Holding SR with MAPs generally > 80, improved UOP, improved renal fx, and decr transaminases. Excellent sats on 2 Lpm O2. CXR-> unchanged RLL opacity. Pleural aspirate no org. LDH c/w exudate. Physical Exam - Physical Exam General Appearance: alert, no apparent distress Respiratory: decreased breath sounds (rt base) Cardiac/Chest: regular rate, rhythm, other (Sternotomy and thigh venots CDI) Abdomen: non-tender, soft Skin: warm/dry Extremities: other (no visible edema) ICD10 Worksheet Patient Problems: Problems Problem Status Onset Acute blood loss anemia Acute S/P CABG x 4 Acute ~11/03/16 CAD, multiple vessel Chronic Dilated cardiomyopathy Chronic
--- NOTE | 2016-11-10 09:17 | SOAPPROG ---
SOAP Progress Note Assessment/Plan: Assessment: * Status post open heart surgery, CABG 11/03. IABP pulled postop day 2. Moved back to the intensive care unit today secondary to decreased urine output and rising creatinine along with increased shortness of breath. Chest x-ray shows an enlarging right pleural effusion. * Congestive heart failure/ICM: Ejection fraction is about 15% on echo 11/05 -repeat echo today * Postoperative respiratory insufficiency. Secondary to congestive heart failure, atelectasis. Extubated 11/05. On 2 L, stable. Increased shortness of breath today secondary in part to the enlarging right pleural effusion. Congestive heart failure/cardiomyopathy may be playing a role.. No evidence of pneumonia or bronchitis. Markedly improved * Acute blood-loss anemia. Hematocrit 32. Stable. * Acute renal failure. Decreased urine output and increased creatinine. Etiology unclear. On dopamine. CVP pending. * Elevated liver function studies: New over the last several days. Query possible drug reaction, shock liver, other etiologies. Abdomen is benign. -markedly improved * Leukocytosis: White blood cell count increased today. No obvious evidence for infection. Afebrile. Will follow. * History of obstructive sleep apnea. Not requiring CPAP currently. * History of multiple medical problems including hypertension, hyperlipidemia, PVD etc. * Metabolic: On replacement protocols. * IDDM: On sliding scale insulin coverage and Lantus at 20 units subcu twice daily. Glucoses will continue to be followed. * DVT: On aspirin, subcu heparin. * GI prophylaxis: Pantoprazole. * Nutrition: Passed swallow evaluation previously, eating but appetite and intake remain poor. Overall better 11/10/16 09:17 Subjective: Sitting up in chair. Resting comfortably. No current breathlessness. Objective: Vital Signs Temp Pulse Resp BP Pulse Ox 37.1 C 80 24 H 123/59 H 98 11/09/16 15:00 11/10/16 06:00 11/10/16 06:00 11/10/16 06:00 11/10/16 06:00 Microbiology 11/09/16 17:08 Gram Stain - Final Pleural Fluid - Aspirate Laboratory Results 11/10/16 05:05 11/10/16 05:05 11/09/16 11/10/16 11/11/16 05:59 05:59 05:59 Intake Total 1625 790 Output Total 2025 Balance 1625 -1235 PT 22.8 SEC (12.0-15.0) H 11/10/16 05:05 INR 2.00 (0.83-1.16) H 11/10/16 05:05 Laboratory Results 11/10/16 05:05 11/10/16 05:05 11/10/16 05:05 Calcium 8.9 mg/dL mg/dL (8.5 - 10.4) Magnesium 1.8 mg/dL mg/dL (1.6 - 2.3) Total Bilirubin 1.5 mg/dL H mg/dL (0.1 - 1.4) Conjugated Bilirubin 0.8 mg/dL H mg/dL (0.0 - 0.5) Unconjugated Bilirubin 0.7 mg/dL mg/dL (0.0 - 1.1) AST 460 IU/L H IU/L (14 - 46) ALT 424 IU/L H IU/L (9 - 52) Alkaline Phosphatase 177 IU/L H IU/L (38 - 126) Total Protein 5.5 g/dL L g/dL (6.3 - 8.2) Albumin 3.3 g/dL L g/dL (3.5 - 5.0) Physical Exam - Physical Exam General Appearance: alert, no apparent distress EENT: PERRL/EOMI, normal ENT inspection Neck: non-tender, full range of motion, supple, normal inspection Respiratory: crackles (Few), No respiratory distress, No wheezing Cardiac/Chest: normal peripheral pulses, regular rate, rhythm, systolic murmur Peripheral Pulses: 2+: carotid (R), carotid (L), femoral (R), femoral (L), dorsalis-pedis (R), dorsalis-pedis (L) Abdomen: normal bowel sounds, non-tender, soft Pelvic Exam: deferred Rectal: deferred Skin: normal color, warm/dry Extremities: normal range of motion, non-tender, normal inspection, normal capillary refill ICD10 Worksheet Patient Problems: Problems Problem Status Onset Acute blood loss anemia Acute S/P CABG x 4 Acute ~11/03/16 CAD, multiple vessel Chronic Dilated cardiomyopathy Chronic
[2016-11-10] MEDS: INSULIN REGULAR, HUMAN 100 UNIT/1 ML VIAL STANDARD SC SCH ×4 (09:36→21:10)
[2016-11-10] MEDS: ASPIRIN 81 MG CHEWABLE TAB PO SCH (12:07)
[2016-11-10] MEDS: FAMOTIDINE 20 MG TAB PO SCH (12:07)
[2016-11-10] MEDS: INSULIN GLARGINE 100 UNITS/ML SYRINGE SC SCH ×2 (12:07→21:08)
[2016-11-10] MEDS: SENNOSIDES/DOCUSATE SODIUM TAB PO SCH ×2 (12:08→21:07)
[2016-11-10 13:14] LABS: POTASSIUM 3.8 mEq/L (3.5-5.2)
[2016-11-10] MEDS ORDERED: POTASSIUM Cl (KCl) 50 ML IV ONE (13:49)
[2016-11-10] MEDS ORDERED: LIDOCAINE 2% JELLY 5 ML TUBE TP ONE (13:55)
[2016-11-10] MEDS ORDERED: LIDOCAINE 1% 300 MG/30 ML SDV MISC ONE (13:55)
[2016-11-10] MEDS ORDERED: MIDAZOLAM 2 MG/2 ML VIAL ONE (14:26)
[2016-11-10] MEDS ORDERED: fentaNYL 100 MCG/2 ML INJ ONE (14:27)
--- NOTE | 2016-11-10 15:44 | GPN ---
[f rep st] PROCEDURE NOTE PROCEDURES: Fiberoptic bronchoscopy. INDICATION: Right lower lobe atelectasis. ANESTHESIA: She received 1% lidocaine topically. She also received Versed 2 mg and fentanyl 50 mcg IV. The procedure was performed in the intensive care unit with continuous pulse ox, EKG, and blood pres sure monitoring. Please note, N95 masks were used throughout the procedure by all. DESCRIPTION OF PROCEDURE: After informed consent was obtained and a time-out was provided, bronchos cope was then entered orally. Vocal cords were opposed easily. Trachea and imly were then visual ized, showed no endobronchial lesions and normal-appearing mucosa. Bronchoscope in the left lung, l eft upper lobe, lingula, left lower lobe including sub-segments were subsequently visualized and boone wed no endobronchial lesions and normal-appearing mucosa. Bronchoscope in the right lung, right upp er lobe, right middle lobe, right lower lobe including subsegments were subsequently visualized, boone wed no endobronchial lesions and normal-appearing mucosa. Right lower lobe and right middle lobe sh owed no evidence of mucous plugging. Bronchoalveolar lavage taken from the right lower lobe; this w as sent for C and S. The patient tolerated the entire procedure with no apparent complications. Po rtable chest x-ray has been called for. /[id number]/MODL
[2016-11-10] MEDS ORDERED: MIDAZOLAM 2 MG/2 ML VIAL IVP ONE (16:15)
[2016-11-10] MEDS ORDERED: fentaNYL 100 MCG/2 ML INJ IVP ONE ×2 (16:15)
--- NOTE | 2016-11-10 16:41 | ECHO ---
[id number] + + [address] : : [place] [address] : : [phone] + + Adult Echocardiographic Report + + :Name: JAKE RAI DStudy Date: 11/10/2016 09:53 AM : : Hospital Admission Number: [id number] Lo cation: 251: :: 1935 Gender: Female Height: 61 in : :Age: 81 yrs Race: WH Weight: 14 5 lb : :Reason For Study: CHF : : BSA: 1.6 m eters2 : + + MMode/2D Measurements \T\ Calculations IVSd: 0.76 cm LVIDd: 5.3 cm FS: 13.3 % Ao root diam: 3.4 cm LVPWd: 0.85 cm LVIDs: 4.6 cm EDV(Teich): 133.2 ml LA dimension: 3.9 cm ESV(Teich): 95.5 ml EF(Teich): 28.3 % Normal Measurement Values: + + :LVIDd (3.5-5.7cm) IVSd (0.6-1.1cm) LVPWd (0.6-1.1cm) Aortic Root (2.0-3.7cm)Left Atrium (1.5-4.0cm): :LV Vol(d) (76-115ml) LV Vol(s) (29-48ml) Ejec Fraction (50-65%)PV Leonard (0.6- 1.2m/s) TV Leonard (0.4-1.0m/s) : :MV E Leonard (0.8-1.0m/s)MV A Leonard (0.3-1.0m/s)LVOT Leonard (0.7-1.2m/s) Asc Ao Lenoard ( 0.9-1.8m/s) : + + Doppler Measurements \T\ Calculations MV E max leonard: 112.5 cm/sec Ao mean P.1 mmHg TR max leonard: 275.7 cm/sec MV A max leonard: 28.6 cm/sec Ao V2 mean: 115.5 cm/secTR max P.4 mmHg MV E/A: 3.9 Ao V2 VTI: 30.5 cm RAP systole: 10.0 mmHg RVSP(TR): 40.4 mmHg Left Ventricle The left ventricle is normal in size. There is normal left ventricular wall thickness. Ejection Fraction = 20-25%. The left ventricular ejection fraction is calculated at 28.3 %. Septal motion is consistent with conduction abnormality. Right Ventricle The right ventricle is normal size. Atria The left atrium is mildly dilated. The right atrium is mildly dilated. Mitral Valve The mitral valve is normal in structure and function. There is mild mitral regurgitation. Tricuspid Valve Normal tricuspid valve. There is moderate tricuspid regurgitation. Right ventricular systolic pressure is normal. Aortic Valve The aortic valve is trileaflet. The aortic valve opens well. Mild aortic calcification. There is no aortic stenosis. Trace aortic regurgitation. Pulmonic Valve The pulmonic valve is not well visualized. Trace pulmonic valvular regurgitation. Great Vessels The aortic root is normal size. Pericardium/Pleural There is no pericardial effusion. Conclusion A complete two-dimensional transthoracic echocardiogram was performed (2D, M-mode, Doppler and color flow Doppler). (1) Left ventricular systolic ejection fraction was severely reduced (20- 25%) - severe global hypokinesis with septal motion abnormality consistent with conduction abnormality (2) No left ventricular hypertrophy (3) Diastolic dysfunction was present (4) Mild to moderate reduction in RV function (5) Mild biatrial dilation (6) Mild mitral regurgitation (7) Trileaflet aortic valve with mild sclerosis, no stenosis, and physiologic insufficiency (8) Moderate tricuspid regurgitation - RVSP was within normal limits (9) Poor visualization of the pulmonic valve with physiologic insufficiency (10) In comparision to prior echocardiogram, no clear changes noted Final Reading Physician: Chayo Grace signed on 11/10/2016 04:40 PM Ordering Physician: Isael Mccarthy Performed By: Christie Salinas, MICHELE
[2016-11-10 18:53] LABS: POTASSIUM 4.3 mEq/L (3.5-5.2)
[2016-11-10] MEDS ORDERED: ACETAMINOPHEN 650 MG/20.3 ML UDCUP ONE (19:06)
[2016-11-10] MEDS: ACETAMINOPHEN 650 MG/20.3 ML UDCUP PO PRN (19:07)
[2016-11-11 06:12] LABS: HEMATOCRIT 31.3 % (38.0-47.0); HEMOGLOBIN 9.9 g/dL (12.6-16.3)
[2016-11-11 06:28] LABS: ANION GAP 8 mEq/L (8-16); CALCIUM 8.7 mg/dL (8.5-10.4); CARBON DIOXIDE 30 mEq/l (22-31); CHLORIDE 107 mEq/L (97-110); CREATININE 0.8 mg/dL (0.6-1.0); GLOMERULAR FILTRATION RATE > 60; GLUCOSE 115 mg/dL (70-100); POTASSIUM 3.7 mEq/L (3.5-5.2); SODIUM 145 mEq/L (134-144)
--- NOTE | 2016-11-11 07:14 | SOAPPROG ---
SOAP Progress Note Assessment/Plan: POD#8 CABG x 4 (GONZALEZ-LAD, SV-D1, SV-PLC, SV-PLR), EVH bilat thighs, prophylactic AtriClip ligation left atrial appendage, RCF IABP 1:1 POD#2 Rt thoracentesis, 130 ml Severe CAD with severe LVSD/ISCM - Secondary prevention w ASA, BB, and statin when appropriate. Acute systolic and diastolic CHF, class IV - Globally hypokinetic LV, w preop LVEF 15-20% and post-op 20-25%. Staggered reintroduction of heart failure regimen as tolerated. Hx NSVT preop - Postop rhythm ST with freq PVCs, occ PACs and rare 4-8 beat runs NSVT. Possible LifeVest prior to discharge. EP to make recommendations. Acute postoperative respiratory insufficiency/atelectasis/small right-sided effusion - Continue supportive care. Acute expected blood loss anemia w thrombocytopenia - Stable. VTE prophylaxis with heparin SQ. DM2, controlled - By preop A1c of 7.3%. Transition to basal/prandial/SSI underway. IM assistance requested for further mgmt. Hx breast CA - Anastrozole to be resumed upon discharge. DREW with oliguria - Resolved. Diet - RELATIONSHIP ADVISOR cleared for regular diet with thin liquids. Dysphagia diet ordered as a precaution d/t aspiration concerns regarding respiratory insufficiency. Will have RELATIONSHIP ADVISOR re-evaluate. Access - RUE PICC, day #3 Disposition - IPR ordered Subjective: Denies SOB/CP. Objective: Vital Signs Temp Pulse Resp BP Pulse Ox 36.4 C 59 L 14 112/61 99 11/11/16 06:35 11/11/16 06:35 11/11/16 06:35 11/11/16 06:35 11/11/16 06:35 Microbiology 11/10/16 15:00 Gram Stain - Final Lung Right Lower Lobe - Bronchial Washings 11/09/16 17:08 Gram Stain - Final Pleural Fluid - Aspirate Laboratory Results 11/11/16 05:40 11/11/16 05:40 11/10/16 11/11/16 11/12/16 05:59 05:59 05:59 Intake Total 790 576 Output Total 0467 725 400 Balance -1235 -149 -400 PT 22.8 SEC (12.0-15.0) H 11/10/16 05:05 INR 2.00 (0.83-1.16) H 11/10/16 05:05 Physical Exam - Physical Exam General Appearance: WD/WN, alert, no apparent distress EENT: No scleral icterus (R), No scleral icterus (L) Neck: normal inspection Respiratory: No respiratory distress Cardiac/Chest: regular rate, rhythm, extra beats Abdomen: non-tender, No distended Skin: normal color, warm/dry Extremities: No pedal edema Neuro/Psych: no motor/sensory deficits, alert, normal mood/affect, oriented x 3 ICD10 Worksheet Patient Problems: Problems Problem Status Onset Acute blood loss anemia Acute S/P CABG x 4 Acute ~11/03/16 CAD, multiple vessel Chronic Dilated cardiomyopathy Chronic
[2016-11-11] MEDS: INSULIN REGULAR, HUMAN 100 UNIT/1 ML VIAL STANDARD SC SCH ×4 (08:52→21:36)
[2016-11-11] MEDS: ACETAMINOPHEN 650 MG/20.3 ML UDCUP PO PRN ×2 (09:49→21:33)
[2016-11-11] MEDS: VENLAFAXINE XR 150 MG CAP PO SCH ×2 (09:51→20:27)
[2016-11-11] MEDS: ASPIRIN 81 MG CHEWABLE TAB PO SCH (09:51)
[2016-11-11] MEDS: SENNOSIDES/DOCUSATE SODIUM TAB PO SCH ×2 (09:51→20:27)
[2016-11-11] MEDS: FAMOTIDINE 20 MG TAB PO SCH (09:51)
[2016-11-11] MEDS: INSULIN GLARGINE 100 UNITS/ML SYRINGE SC SCH ×2 (10:32→21:38)
[2016-11-11] MEDS ORDERED: POTASSIUM CL 20 MEQ TAB PO ONE ×2 (10:35→14:15)
--- NOTE | 2016-11-11 12:19 | SOAPPROG ---
SOAP Progress Note Assessment/Plan: Assessment: * Status post open heart surgery, CABG 11/03. * Congestive heart failure/ICM: Ejection fraction is about 15% on echo 11/05 * Respiratory-markedly improved. On minimal oxygen. * Acute blood-loss anemia. Hematocrit 32. Stable. * Acute renal failure. Decreased urine output and increased creatinine. Etiology unclear. On dopamine. CVP pending. * History of obstructive sleep apnea. Not requiring CPAP currently. * History of multiple medical problems including hypertension, hyperlipidemia, PVD etc. * Metabolic: On replacement protocols. * IDDM: On sliding scale insulin coverage and Lantus at 20 units subcu twice daily. Glucoses will continue to be followed. * DVT: On aspirin, subcu heparin. * GI prophylaxis: Pantoprazole. Overall better Subjective: Up in chair. Resting comfortably. Pain is well controlled. Objective: Vital Signs Temp Pulse Resp BP Pulse Ox 36.8 C 78 18 125/56 H 99 11/11/16 07:29 11/11/16 07:29 11/11/16 07:29 11/11/16 07:29 11/11/16 07:29 Microbiology 11/10/16 15:00 Gram Stain - Final Lung Right Lower Lobe - Bronchial Washings 11/09/16 17:08 Gram Stain - Final Pleural Fluid - Aspirate Laboratory Results 11/11/16 05:40 11/11/16 05:40 11/10/16 11/11/16 11/12/16 05:59 05:59 05:59 Intake Total 790 576 Output Total 2025 725 400 Balance -1235 -149 -400 PT 22.8 SEC (12.0-15.0) H 11/10/16 05:05 INR 2.00 (0.83-1.16) H 11/10/16 05:05 Physical Exam - Physical Exam General Appearance: WD/WN, alert EENT: PERRL/EOMI, normal ENT inspection Neck: non-tender Respiratory: crackles (Few basilar), No respiratory distress, No wheezing Cardiac/Chest: normal peripheral pulses, regular rate, rhythm Abdomen: normal bowel sounds, non-tender, soft Pelvic Exam: deferred Rectal: deferred Skin: normal color, warm/dry Extremities: normal range of motion, non-tender, normal inspection, normal capillary refill Neuro/Psych: no motor/sensory deficits, alert, normal mood/affect, oriented x 3 ICD10 Worksheet Patient Problems: Problems Problem Status Onset Acute blood loss anemia Acute S/P CABG x 4 Acute ~11/03/16 CAD, multiple vessel Chronic Dilated cardiomyopathy Chronic
--- NOTE | 2016-11-11 15:04 | ASMTCMCOM ---
CM Note CM Note Notes: Met w/ pt, and son; discussed SNF options; family requested referral sent to [facility] in [place]. Faxed referral. Unable to take pt due to insurance. Provided list of [place] facilities. CM to follow up w/ family karthik tang. Date Signed: 11/11/2016 03:04 PM Electronically Signed By:Modesta Doty
--- NOTE | 2016-11-11 18:06 | CPEKG ---
Heart Rate: 84 RR Interval: 714 P-R Interval: 180 QRSD Interval: 130 QT Interval: 412 QTC Interval: 488 P Schneider: 62 QRS Schneider: -74 T Wave Schneider: 83 EKG Severity - ABNORMAL ECG - EKG Impression: SINUS RHYTHM EKG Impression: PAIRED VENTRICULAR PREMATURE COMPLEXES EKG Impression: RIGHT BUNDLE BRANCH BLOCK EKG Impression: ANTEROLATERAL INFARCT, AGE INDETERMINATE Electronically Signed By: Alberto Vega 11-Nov-2016 21:25:29
--- NOTE | 2016-11-11 21:29 | PDCARPN ---
Cardiology Progress Note Chief Complaint: Shortness of breath Assessment/Plan: Assessment: 1. CAD sp CABG 2. Ischemic cardiomyopathy, LVEF 20% 3. PVC Plan: 1. Recent revascularization this admission. Would wait 90 days to reassess LVEF prior to making decision re. device therapy. 2. Did not tolerate beta imelda initiation x 2 during post surgical period. Would consider starting low dose Coreg in outpatient setting. 3. Consider starting low dose ACEI 4. QRS duration 130 ms with RBBB morphology - low yield to biventricular pacing. However if does not improve clinically, consider BiV pacing 5. Recheck echo to assess LVEF 11/11/16 21:30 Subjective: Dyspnea with exertion Reviewed/Discussed With: family (Dr. Bustillo) Time Spent With Patient: 20 min Objective: Vital Signs (8 Hrs) Temp Pulse Resp BP Pulse Ox 11/11/16 20:00 36.3 C 84 16 156/82 H 94 11/11/16 16:00 36.4 C 84 22 H 137/88 H 99 Intake/Output (24 Hrs) 11/10/16 11/11/16 11/12/16 11:59 11:59 11:59 Intake Total 790 576 750 Output Total 2024 1125 425 Balance -1235 -549 325 Intake: Oral (ml) 300 450 750 IV Infused (ml) 490 126 1/2 Ns 1,000 ml @ 75 mls/ 385 hr IV CONT [facility] Rx#: [id number] DOPamine/DEXTROSE 250 ml 105 126 @ 2 MCG/KG/MIN 4.965 mls/ hr IV CONT [facility] Rx#: [id number] Output: Urine (ml) 2024 1125 425 Bedside Commode 900 Catheter 1175 225 Incontinence 850 Toilet 425 Other: Weight 65.1 kg 65.8 kg Number of Voids Bedside Commode 1 Number of Stools Toilet 1 Result Diagrams: 11/11/16 05:40 11/11/16 05:40 EKG: NSR, RBBB, frequent PVC Telemetry: NSR, frequent PVC ICD10 Worksheet Patient Problems: Problems Problem Status Onset Acute blood loss anemia Acute S/P CABG x 4 Acute ~11/03/16 Dilated cardiomyopathy Chronic CAD, multiple vessel Chronic
[2016-11-12] MEDS: ALTEPLASE 2 MG VIAL IVP PRN ×2 (05:05→12:15)
[2016-11-12 06:26] LABS: ANION GAP 8 mEq/L (8-16); CALCIUM 8.8 mg/dL (8.5-10.4); CARBON DIOXIDE 31 mEq/l (22-31); CHLORIDE 104 mEq/L (97-110); CREATININE 0.7 mg/dL (0.6-1.0); GLOMERULAR FILTRATION RATE > 60; GLUCOSE 54 mg/dL (70-100); SODIUM 143 mEq/L (134-144)
--- NOTE | 2016-11-12 06:27 | SOAPPROG ---
SOAP Progress Note Assessment/Plan: POD#9 CABG x 4 (GONZALEZ-LAD, SV-D1, SV-PLC, SV-PLR), EVH bilat thighs, prophylactic AtriClip ligation left atrial appendage, RCF IABP 1:1 POD#3 Rt thoracentesis, 130 ml Severe CAD with severe LVSD/ISCM - Secondary prevention w ASA, BB, and statin when appropriate. Acute systolic and diastolic CHF, class IV - Globally hypokinetic LV, w preop LVEF 15-20% and post-op 20-25%. Staggered reintroduction of heart failure regimen as tolerated. Hx NSVT preop - Postop rhythm ST with freq PVCs, occ PACs and rare 4-8 beat runs NSVT. Possible LifeVest prior to discharge. EP to make recommendations. Acute postoperative respiratory insufficiency/atelectasis/small right-sided effusion - Continue supportive care. Acute expected blood loss anemia w thrombocytopenia - Stable. VTE prophylaxis with heparin SQ. DM2, controlled - By preop A1c of 7.3%. Transition to basal/prandial/SSI underway. IM assistance requested for further mgmt. Hx breast CA - Anastrozole to be resumed upon discharge. DREW with oliguria - Resolved. Diet - Advanced to dysphagia 3 with thin liquids Access - RUE PICC, day #4 Disposition - IPR consult ordered Subjective: Some difficulty breathing. No pain. Objective: Vital Signs Temp Pulse Resp BP Pulse Ox 36.6 C 81 20 119/82 H 97 11/12/16 04:00 11/12/16 04:00 11/12/16 04:00 11/12/16 04:00 11/12/16 04:00 Microbiology 11/10/16 15:00 Gram Stain - Final Lung Right Lower Lobe - Bronchial Washings 11/09/16 17:08 Gram Stain - Final Pleural Fluid - Aspirate Laboratory Results 11/11/16 05:40 11/11/16 11/12/16 11/13/16 05:59 05:59 05:59 Intake Total 576 1250 Output Total 725 975 Balance -149 275 PT 22.8 SEC (12.0-15.0) H 11/10/16 05:05 INR 2.00 (0.83-1.16) H 11/10/16 05:05 Physical Exam - Physical Exam General Appearance: WD/WN, alert, no apparent distress EENT: No scleral icterus (R), No scleral icterus (L) Neck: normal inspection Respiratory: No respiratory distress Cardiac/Chest: regular rate, rhythm, extra beats Abdomen: normal bowel sounds, soft, No distended Skin: normal color, warm/dry Extremities: No pedal edema Neuro/Psych: no motor/sensory deficits, alert, normal mood/affect, oriented x 3 ICD10 Worksheet Patient Problems: Problems Problem Status Onset Acute blood loss anemia Acute S/P CABG x 4 Acute ~11/03/16 CAD, multiple vessel Chronic Dilated cardiomyopathy Chronic
[2016-11-12] MEDS: SENNOSIDES/DOCUSATE SODIUM TAB PO SCH ×2 (09:31→21:08)
[2016-11-12] MEDS: POTASSIUM CL 20 MEQ TAB PO SCH (09:31)
[2016-11-12] MEDS: ASPIRIN 81 MG CHEWABLE TAB PO SCH (09:31)
[2016-11-12] MEDS: FAMOTIDINE 20 MG TAB PO SCH (09:32)
[2016-11-12] MEDS: CARVEDILOL 3.125 MG TAB PO SCH ×2 (09:32→18:15)
[2016-11-12] MEDS: INSULIN REGULAR, HUMAN 100 UNIT/1 ML VIAL STANDARD SC SCH ×4 (09:32→21:18)
[2016-11-12] MEDS: INSULIN GLARGINE 100 UNITS/ML SYRINGE SC SCH (09:32)
[2016-11-12] MEDS: TORSEMIDE 20 MG TAB PO SCH (09:47)
[2016-11-12] MEDS: VENLAFAXINE XR 150 MG CAP PO SCH ×2 (09:48→21:08)
--- NOTE | 2016-11-12 13:54 | SOAPPROG ---
SOAP Progress Note Assessment/Plan: Assessment: * Status post open heart surgery, CABG 11/03. * Congestive heart failure/ICM: Ejection fraction is about 15% on echo 11/05 * Respiratory-complains of cough and wheezing. No increase breathlessness * Acute blood-loss anemia. Hematocrit 32. Stable. * Acute renal failure. Decreased urine output and increased creatinine. Etiology unclear. On dopamine. CVP pending. * History of obstructive sleep apnea. Not requiring CPAP currently. * History of multiple medical problems including hypertension, hyperlipidemia, PVD etc. * Metabolic: On replacement protocols. * IDDM: On sliding scale insulin coverage and Lantus at 20 units subcu twice daily. Glucoses will continue to be followed. * DVT: On aspirin, subcu heparin. * GI prophylaxis: Pantoprazole. Subjective: Resting comfortably. Complains of coughing and wheeze Objective: Vital Signs Temp Pulse Resp BP Pulse Ox 36.4 C 75 22 H 124/60 H 96 11/12/16 11:40 11/12/16 11:40 11/12/16 11:40 11/12/16 11:40 11/12/16 11:40 Microbiology 11/10/16 15:00 Gram Stain - Final Lung Right Lower Lobe - Bronchial Washings Bronchial Washings Culture - Final 11/09/16 17:08 Gram Stain - Final Pleural Fluid - Aspirate Body Fluid Culture - Final Laboratory Results 11/11/16 05:40 11/12/16 06:00 11/11/16 11/12/16 11/13/16 05:59 05:59 05:59 Intake Total 576 1250 120 Output Total 488 631 9664 Balance -149 275 -980 PT 22.8 SEC (12.0-15.0) H 11/10/16 05:05 INR 2.00 (0.83-1.16) H 11/10/16 05:05 Chest x-ray reviewed by myself. Minimal worsening of bibasilar opacifications are seen Physical Exam - Physical Exam General Appearance: alert, no apparent distress, moderate distress EENT: normal ENT inspection Neck: non-tender, full range of motion, supple, normal inspection Respiratory: wheezing (Slight), No respiratory distress Cardiac/Chest: normal peripheral pulses, regular rate, rhythm Abdomen: normal bowel sounds, non-tender, soft Pelvic Exam: deferred Rectal: deferred Skin: normal color, warm/dry Extremities: normal range of motion, non-tender, normal inspection, normal capillary refill ICD10 Worksheet Patient Problems: Problems Problem Status Onset Acute blood loss anemia Acute S/P CABG x 4 Acute ~11/03/16 CAD, multiple vessel Chronic Dilated cardiomyopathy Chronic
[2016-11-12] MEDS: HEPARIN 5,000 UNIT/0.5 ML SYR SC SCH ×2 (14:39→21:09)
[2016-11-12] MEDS: ALBUTEROL 3 ML DEYVIAL IH PRN ×2 (14:44→21:49)
[2016-11-12] MEDS ORDERED: D50W 25 GM/50 ML SYR IVP PRN (18:42)
[2016-11-12] MEDS: ACETAMINOPHEN 650 MG/20.3 ML UDCUP PO PRN (21:08)
[2016-11-13] MEDS: HEPARIN 5,000 UNIT/0.5 ML SYR SC SCH (06:09)
--- NOTE | 2016-11-13 07:39 | SOAPPROG ---
SOAP Progress Note Assessment/Plan: Assessment: POD#10 CABG x 4 (GONZALEZ-LAD, SV-D1, SV-PLC, SV-PLR), EVH bilat thighs , prophylactic AtriClip ligation left atrial appendage, RCF IABP 1:1 POD#4 Rt thoracentesis, 130 ml Vascular access LUE PICC Severe CAD with severe LVSD/ISCM - No significant change in LVEF post 4 vessel revasc. Secondary prevention w ASA, BB, and statin when appropriate. Acute systolic and diastolic CHF, class IV - Globally hypokinetic LV, w preop LVEF 15-20%, LVEDP 22. Medically stabilized with pressor support and diuresis prior to surgery. Successful separation from CPB on combo vasoactive support and IABP. Balloon pump removed POD#1. Drips steadily weaned. Bedside echo POD#2 notable for LVEF 20-25% on low dose dobut. F/U echo yest w LVEF 20-25% on Coreg. AF prophylaxis with BB limited by marginal BP; use of amio limited by inc in LFTs. Heart failure regimen as tolerated. Hx NSVT preop - Postop rhythm ST with freq PVCs, occ PACs and rare 4-8 beat runs NSVT. Amio started POD#4 with reduction in PVCs, but stopped d/t abnl LFTs. Lifevest prior to discharge as EF remains depressed. ICD eval in 3 mo. DREW with shock liver - Bump in Cr from normal to peak of 1.5 on POD#6. Assoc with inc transaminases and INR. Attributed to exacerbation of LCOS by over- diuresis and relative hypotension. Resolved after med adjustment, fluid resuscitation and temporary low dose dopamine. Acute postoperative respiratory insufficiency - Kept intubated and sedated for IABP tolerance. Subsequent slow vent wean well tolerated and extubated POD#2 without incident. No apparent focal neuro deficits. No significant pleural effusions or mucous plugging. Dietary advancement per [employer]. Nebs, MDIs, mucolytics per pulmonary. Acute expected blood loss anemia w thrombocytopenia - Stable s/p 3u PRBC intraop. No evidence active bleeding. Precautionary HIT neg. Platelet counts rebounding. Remains auto-anticoagulated. DM2, controlled - By preop A1c of 7.3%. Postop hyperglycemia managed with insulin gtt. Transition to basal/prandial/SSI as per ICU. IM assistance on PCU. Hx breast CA - Anastrozole to resume prior to discharge. Plan: Cont Coreg 3.125 mg BID. Cont Torsemide 20 mg daily. Cont inc activity as tolerated. Cont aggressive pulm toilet. Ck CXR later today. Dispo - SNF ([facility]) tomorrow if insurance issues cleared and resp status stable. 11/13/16 07:37 Subjective: Doing ok. Satisfactory analgesia. Shower yest. Nl bowel fx. Cont to cough. Improved breathing post neb. Objective: Vital Signs Temp Pulse Resp BP Pulse Ox 37.1 C 79 16 101/56 L 100 11/13/16 04:00 11/13/16 04:00 11/13/16 04:00 11/13/16 04:00 11/13/16 04:00 Microbiology 11/10/16 15:00 Gram Stain - Final Lung Right Lower Lobe - Bronchial Washings Bronchial Washings Culture - Final 11/09/16 17:08 Gram Stain - Final Pleural Fluid - Aspirate Body Fluid Culture - Final Laboratory Results 11/11/16 05:40 11/12/16 06:00 11/12/16 11/13/16 11/14/16 05:59 05:59 05:59 Intake Total 1250 1020 Output Total 975 1900 Balance 275 -880 PT 22.8 SEC (12.0-15.0) H 11/10/16 05:05 INR 2.00 (0.83-1.16) H 11/10/16 05:05 HR, rhythm and BP stable. Excellent sats on min O2. Balanced I/Os. +4 kg by wt. BAL cx no growth. Labile FSBG. Insulin adjustments made by IM. - Pending Discharge Pending Discharge Within 48 Hours: Yes Pending Discharge Date: 11/15/16 Pending Discharge Time: 11:00 Physical Exam - Physical Exam General Appearance: alert, no apparent distress Respiratory: rhonchi (lower airways) Cardiac/Chest: regular rate, rhythm, other (Sternum grossly stable. Sternotomy, CT sites, and bilat venotomies healing well.) Abdomen: non-tender, soft Skin: warm/dry Extremities: swelling (trace) ICD10 Worksheet Patient Problems: Problems Problem Status Onset Acute blood loss anemia Acute S/P CABG x 4 Acute ~11/03/16 CAD, multiple vessel Chronic Dilated cardiomyopathy Chronic
[2016-11-13] MEDS ORDERED: FUROSEMIDE 40 MG/4 ML VIAL IVP ONE (07:41)
--- NOTE | 2016-11-13 08:36 | ECHO ---
[id number] + + [address] : : [facility] [address] : : [phone] + + Adult Echocardiographic Report + + :Name: JAKE RAI DStudy Date: 11/12/2016 01:24 PM : : Hospital Admission Number: [id number] Lo cation: 207: :: 1935 Gender: Female Height: 64 in : :Age: 81 yrs Race: Weight: 11 8 lb : :Reason For Study: Eval LV function : : BSA: 1.6 m eters2 : + + Doppler Measurements \T\ Calculations TR max tamela: 291.0 cm/sec TR max P.9 mmHg RAP systole: 5.0 mmHg RVSP(TR): 38.9 mmHg Left Ventricle Ejection Fraction = 20-25%. Pericardium/Pleural Trivial anterior pericardial effusion. Conclusion Limited 2-D echo. Ejection Fraction = 20-25%. In comparison to prior echocardiogram from 11/10/16, continued suppression in LVEF is noted. Final Reading Physician: Chayo Grace signed on 11/13/2016 08:35 AM Ordering Physician: Emeterio Bustillo Performed By: Christie Salinas RDCS
[2016-11-13] MEDS: VENLAFAXINE XR 150 MG CAP PO SCH ×2 (09:25→20:53)
[2016-11-13] MEDS: FAMOTIDINE 20 MG TAB PO SCH (09:25)
[2016-11-13] MEDS: ASPIRIN 81 MG CHEWABLE TAB PO SCH (09:25)
[2016-11-13] MEDS: TORSEMIDE 20 MG TAB PO SCH (09:25)
[2016-11-13] MEDS: POTASSIUM CL 20 MEQ TAB PO SCH (09:25)
[2016-11-13] MEDS: CARVEDILOL 3.125 MG TAB PO SCH ×2 (09:25→18:15)
[2016-11-13] MEDS: SENNOSIDES/DOCUSATE SODIUM TAB PO SCH ×2 (09:25→20:53)
[2016-11-13] MEDS: ALBUTEROL 3 ML DEYVIAL IH PRN (09:56)
[2016-11-13] MEDS: INSULIN REGULAR, HUMAN 100 UNIT/1 ML VIAL STANDARD SC SCH (10:12)
[2016-11-13] MEDS ORDERED: D50W 25 GM/50 ML SYR IVP PRN (10:52)
[2016-11-13] MEDS: INSULIN GLARGINE 100 UNITS/ML SYRINGE SC SCH (11:27)
[2016-11-13] MEDS: INSULIN LISPRO 100 UNIT/ML SC SCH ×3 (12:37→20:53)
[2016-11-13] MEDS: MBX SOLN 30 ML BOTTLE PO PRN ×2 (12:38→18:45)
--- NOTE | 2016-11-13 13:11 | GCON ---
[f rep st] CONSULTATION ADMISSION HISTORY AND PHYSICAL DATE OF CONSULTATION: 11/13/2016 I was asked to see the patient by Dr. Emeterio Bustillo to assist with the management of a post-CABG patie nt with type 2 diabetes and hypoglycemia. The patient is a pleasant 81-year-old female, with a history of diabetes and remote breast cancer, w ho was admitted to the hospital for a cardiac catheterization after an outpatient echocardiogram boone wed depressed EF of 15% to 20%. She underwent angiogram on the , showing 3 vessel disease in th e LAD, left circumflex, RCA. She was recommended for CABG. She was also hypotensive and referred to the ICU for further manageme nt of her hypertension. She underwent CABG on the . Postoperative case has been complicated by respiratory failure, requiring bronchoscopy on the . The micro from this is unremarkable. She is not on antibiotics. She was initially on insulin drip following surgery. But with transition to Lantus 20 b.i.d. and si nce yesterday morning, that is the , she had been fairly persistently hypoglycemic, with blood s ugars as low as the 40s, and these have been occurring throughout the day, including on the she was hypoglycemic at 6 a.m. and 8:30 a.m., normoglycemic at 11:30, and then she was hypoglycemic at 5 p.m., 6 p.m., and then again at 8 p.m., with a normal blood sugar after dinner at 7:30. She was h ypoglycemic again this morning, at 57. The patient comments that her mouth is sore and she does not have much of an appetite and is eating poorly. Additionally, they are giving her tart foods, such as applesauce, that she says bothers her throat. She relates a story of evening hypoglycemia at home, commonly hypoglycemic after dinner. It sounds like her p.m. NovoLog dose of 18 units is too high. The patient denies fever chills, cough, sputum, nausea, vomiting, diarrhea. She has moved her bowel s since the surgery. REVIEW OF SYSTEMS: Complete 10-point review of systems conducted and negative, except as noted in t he HPI. PAST MEDICAL HISTORY: 1. Coronary artery disease status post bypass x4, as well as atrial clip the left atrial appendage. 2. Remote breast cancer in 2013 status post radiation therapy, now on anastrozole. 3. Carotid artery disease. 4. Depression. 5. Diabetes, last A1c 7.3. 6. Hypertension. 7. Hyperlipidemia. 8. History of pancreatitis. 9. Peripheral vascular disease. 10. Obstructive sleep apnea, on CPAP. 11. Meniere disease. 12. Iron-deficiency anemia. 13. Cataract surgery. 14. Cholecystectomy. 15. Hysterectomy. SOCIAL HISTORY: She lives in [place] with her and 2 children. SOCIAL HISTORY: She is a nonsmoker. No alcohol or IV drug use. FAMILY HISTORY: Parents . PHYSICAL EXAM: CURRENT VITAL SIGNS: Temp 36.6, blood pressure 105/60, pulse 84, breathing 24 times a minute, 100% on 1 L. GENERAL: No acute distress. HEENT: Sclerae anicteric. Oropharynx clear. Mucous membranes moist. NECK: Supple without lymphadenopathy or JVD. LUNGS: Clear to auscultat ion anterolaterally. HEART: S1, S2, without murmurs. Her sternotomy incision is clean, dry, and i ntact. ABDOMEN: Soft, nontender, nondistended. EXTREMITIES: There is trace lower extremity edema bilaterally. Calves nontender. SKIN: Without rash. NEUROLOGIC: Nonfocal. LABORATORY DATA: She had a chem 7, yesterday showing sodium , potassium 4.0, chloride 104 , bicarb 31, BUN 30, creatinine 0.7, glucose was 54. Last CBC shows a white count 12.3, hematocrit of 30, and platelets are 147,000. I have discussed the case with Dai Epps of cardiothoracic surgery . She had a chest x-ray yesterday. Shows post CABG but otherwise fairly unremarkable. There are s ome pleural effusions and atelectasis. ASSESSMENT/PLAN: An 81-year-old female with recent coronary artery bypass graft, postoperative hypo glycemia. 1. Hypoglycemia: I believe that this is poor p.o. intake in the setting of too much Lantus. Hypog lycemia that occurs throughout the day is consistent with Lantus effect. To that end, Cardiothoraci c Surgery wisely decreased her Lantus to 10 daily. Additionally, her sliding scale had been regular insulin prior to this, which does have a tail and this can be associated with insulin stacking. I have changed this to the low-dose lispro scale. I would give her 10 units of Lantus today, in the l ow-dose sliding scale, and we will follow this on a daily basis and titrate her insulin back up. Risa wong also takes a sulfonylurea that has been discontinued. 2. Pleural effusions: Management per Cardiothoracic Surgery. I have advised her to continue . 3. Pain, well controlled. 4. Prophylaxis: The patient is on subcu heparin. 5. Coronary artery disease: She is on aspirin and carvedilol. She is on a statin. 6. Volume overload: She is currently being diuresed. DISPOSITION: Inpatient status. Thank you for this consult. We will follow with you. /[id number]/MODL
--- NOTE | 2016-11-13 15:18 | SOAPPROG ---
SOAP Progress Note Assessment/Plan: Assessment: * Status post open heart surgery, CABG 11/03. * Congestive heart failure/ICM: Ejection fraction is about 15% on echo 11/05 * Respiratory-markedly better with breathing treatments * Acute blood-loss anemia. Hematocrit 32. Stable. * Acute renal failure. * History of obstructive sleep apnea. Not requiring CPAP currently. * History of multiple medical problems including hypertension, hyperlipidemia, PVD etc. * Metabolic: On replacement protocols. * IDDM: Blood sugars stable * DVT: On aspirin, subcu heparin. * GI prophylaxis: Pantoprazole. Subjective: Up in chair. Resting comfortably. Dyspnea has improved. Cough is resolved Objective: Vital Signs Temp Pulse Resp BP Pulse Ox 36.6 C 84 24 H 105/65 100 11/13/16 11:01 11/13/16 11:01 11/13/16 11:01 11/13/16 11:01 11/13/16 11:01 Microbiology 11/10/16 15:00 Gram Stain - Final Lung Right Lower Lobe - Bronchial Washings Bronchial Washings Culture - Final 11/09/16 17:08 Gram Stain - Final Pleural Fluid - Aspirate Body Fluid Culture - Final Laboratory Results 11/11/16 05:40 11/12/16 06:00 11/12/16 11/13/16 11/14/16 05:59 05:59 05:59 Intake Total 1250 1020 218 Output Total 975 1900 1250 Balance 275 -880 -1032 PT 22.8 SEC (12.0-15.0) H 11/10/16 05:05 INR 2.00 (0.83-1.16) H 11/10/16 05:05 Physical Exam - Physical Exam General Appearance: alert, no apparent distress EENT: PERRL/EOMI, normal ENT inspection Neck: non-tender, full range of motion, supple, normal inspection Respiratory: chest non-tender, lungs clear, normal breath sounds Cardiac/Chest: normal peripheral pulses, regular rate, rhythm Peripheral Pulses: 2+: carotid (R), carotid (L), femoral (R), femoral (L), dorsalis-pedis (R), dorsalis-pedis (L) Abdomen: normal bowel sounds, non-tender, soft Pelvic Exam: deferred Rectal: deferred Skin: normal color, warm/dry Neuro/Psych: no motor/sensory deficits, alert, normal mood/affect, oriented x 3 ICD10 Worksheet Patient Problems: Problems Problem Status Onset Acute blood loss anemia Acute S/P CABG x 4 Acute ~11/03/16 CAD, multiple vessel Chronic Dilated cardiomyopathy Chronic
[2016-11-13] MEDS: ACETAMINOPHEN 650 MG/20.3 ML UDCUP PO PRN (20:52)
[2016-11-14 06:23] LABS: INR 1.25 (0.83-1.16); PROTIME(PATIENT) 15.7 SEC (12.0-15.0)
[2016-11-14 06:25] LABS: POTASSIUM 3.9 mEq/L (3.5-5.2)
--- NOTE | 2016-11-14 06:52 | SOAPPROG ---
SOAP Progress Note Assessment/Plan: POD#11 CABG x 4 (GONZALEZ-LAD, SV-D1, SV-PLC, SV-PLR), EVH bilat thighs, prophylactic AtriClip ligation left atrial appendage, RCF IABP 1:1 POD#5 Rt thoracentesis, 130 ml Severe CAD with severe LVSD/ISCM - Secondary prevention w ASA, BB, and statin when appropriate. Acute systolic and diastolic CHF, class IV - Globally hypokinetic LV, w preop LVEF 15-20% and post-op 20-25%. Staggered reintroduction of heart failure regimen as tolerated. Hx NSVT preop - Postop rhythm ST with freq PVCs. LifeVest prior to discharge with AICD evaluation 90 days from d/c. Acute postoperative respiratory insufficiency/atelectasis/small right-sided effusion - Stable, continue supportive care. Acute expected blood loss anemia w thrombocytopenia - Stable. VTE prophylaxis with heparin SQ. DM2, controlled - By preop A1c of 7.3%. Transition to basal/SSI underway. IM managing. Hx breast CA - Anastrozole to be resumed upon discharge. DREW with oliguria and shock liver secondary to poor cardiac output - Resolved. Diet - Advanced to dysphagia 3 with thin liquids Access - RUE PICC, day #6 Disposition - SNF today pending insurance auth Subjective: Comfortable, no complaints. Walked this AM. Breathing well. Objective: Vital Signs Temp Pulse Resp BP Pulse Ox 36.8 C 83 16 117/61 95 11/14/16 04:00 11/14/16 04:00 11/14/16 04:00 11/14/16 04:00 11/14/16 04:00 Laboratory Results 11/11/16 05:40 11/14/16 06:00 11/13/16 11/14/16 11/15/16 05:59 05:59 05:59 Intake Total 1020 868 Output Total 1900 2475 Balance -880 -1607 PT 15.7 SEC (12.0-15.0) H 11/14/16 06:00 INR 1.25 (0.83-1.16) H 11/14/16 06:00 Physical Exam - Physical Exam General Appearance: WD/WN, alert, no apparent distress EENT: No scleral icterus (R), No scleral icterus (L) Neck: normal inspection Respiratory: No respiratory distress Cardiac/Chest: regular rate, rhythm, extra beats Abdomen: non-tender, soft, No distended Skin: normal color, warm/dry Extremities: No pedal edema Neuro/Psych: no motor/sensory deficits, alert, normal mood/affect, oriented x 3 ICD10 Worksheet Patient Problems: Problems Problem Status Onset Acute blood loss anemia Acute S/P CABG x 4 Acute ~11/03/16 CAD, multiple vessel Chronic Dilated cardiomyopathy Chronic
[2016-11-14] MEDS: HEPARIN 5,000 UNIT/0.5 ML SYR SC SCH ×2 (07:00→14:15)
[2016-11-14] MEDS: POTASSIUM CL 20 MEQ TAB PO SCH (08:54)
[2016-11-14] MEDS: SENNOSIDES/DOCUSATE SODIUM TAB PO SCH (08:55)
[2016-11-14] MEDS: ASPIRIN 81 MG CHEWABLE TAB PO SCH (08:55)
[2016-11-14] MEDS: TORSEMIDE 20 MG TAB PO SCH (08:55)
[2016-11-14] MEDS: CARVEDILOL 3.125 MG TAB PO SCH ×2 (08:56→17:34)
[2016-11-14] MEDS: FAMOTIDINE 20 MG TAB PO SCH (08:56)
[2016-11-14] MEDS: VENLAFAXINE XR 150 MG CAP PO SCH ×2 (08:56→22:28)
[2016-11-14] MEDS: INSULIN GLARGINE 100 UNITS/ML SYRINGE SC SCH (08:57)
[2016-11-14] MEDS: INSULIN LISPRO 100 UNIT/ML SC SCH ×4 (09:11→22:28)
[2016-11-14] MEDS: MBX SOLN 30 ML BOTTLE PO PRN (13:06)
--- NOTE | 2016-11-14 13:34 | SOAPPROG ---
SOAP Progress Note Assessment/Plan: Assessment: * Status post open heart surgery, CABG 11/03. * Congestive heart failure/ICM: Ejection fraction is about 15% on echo 11/05 * Respiratory-markedly better with breathing treatments * Acute blood-loss anemia. Hematocrit 32. Stable. * Acute renal failure. * History of obstructive sleep apnea. Not requiring CPAP currently. * History of multiple medical problems including hypertension, hyperlipidemia, PVD etc. * Metabolic: On replacement protocols. * IDDM: Blood sugars stable * DVT: On aspirin, subcu heparin. * GI prophylaxis: Pantoprazole. * PT/OT-ambulating well with physical therapy Subjective: Resting comfortably. Denies any pain. Ambulating without difficulty Objective: Vital Signs Temp Pulse Resp BP Pulse Ox 37.1 C 86 20 123/75 H 93 11/14/16 11:21 11/14/16 11:21 11/14/16 11:21 11/14/16 11:21 11/14/16 11:21 Laboratory Results 11/11/16 05:40 11/14/16 06:00 11/13/16 11/14/16 11/15/16 05:59 05:59 05:59 Intake Total 1020 868 450 Output Total 1900 2475 850 Balance -880 -1607 -400 PT 15.7 SEC (12.0-15.0) H 11/14/16 06:00 INR 1.25 (0.83-1.16) H 11/14/16 06:00 Physical Exam - Physical Exam General Appearance: alert, no apparent distress EENT: PERRL/EOMI, normal ENT inspection, pharynx normal, TMs normal Neck: non-tender, full range of motion, supple, normal inspection Respiratory: crackles (Few basilar), No respiratory distress, No wheezing Cardiac/Chest: normal peripheral pulses, regular rate, rhythm, systolic murmur Peripheral Pulses: 2+: carotid (R), carotid (L), femoral (R), femoral (L), dorsalis-pedis (R), dorsalis-pedis (L) Abdomen: normal bowel sounds, non-tender, soft Pelvic Exam: deferred Rectal: deferred Skin: normal color, warm/dry Extremities: normal range of motion, non-tender, normal inspection, normal capillary refill ICD10 Worksheet Patient Problems: Problems Problem Status Onset Acute blood loss anemia Acute S/P CABG x 4 Acute ~11/03/16 CAD, multiple vessel Chronic Dilated cardiomyopathy Chronic
--- NOTE | 2016-11-14 15:01 | ASMTCMCOM ---
CM Note CM Note Notes: Recieved call from [facility] and informed CM that [facility] inpatient rehab has submitted request for auth. Will keep [facility] updated on possible dispo plan to [facility] inpatient rehab. Spoke w/ [facility] inpatient rehab, [place]. Was informed that they are waiting for result of auth. Auth for inpatient rehab denied. [facility] accepted pt. [facility] d/c for tomorrow. Need prior auth for life vest. CM coordinating w/ [facility] and [facility] for Dr. Bustillo. Date Signed: 11/14/2016 03:00 PM Electronically Signed By:Modesta Doty
--- NOTE | 2016-11-14 15:10 | HOSPPROG ---
Hospitalist Progress Note Assessment/Plan: # acute hypoglycemia- postoperatively with sugars 40-50's- Lantus dosing reduced to 10 Patient reports improved oral intake in the past 24 hours Blood sugars overnight 170-200 - this am 76 (asymptomatic) Telemetry (personally reviewed and interpreted) sinus rhythm- oxygen saturations this a.m. 93% on room air - continue Lantus 10 daily - continue low-dose sliding scale insulin - continue encourage oral intake today # prophylaxis- kidney function improved could use Lovenox # diet encouraging increased p.o. # disposition per CT surgery service- patient improving daily I have discussed the case with the RN will continue current sliding scale and Lantus dosing Subjective: Improved appetite overnight Objective: Vital Signs Temp Pulse Resp BP Pulse Ox 37.1 C 86 20 123/75 H 93 11/14/16 11:21 11/14/16 11:21 11/14/16 11:21 11/14/16 11:21 11/14/16 11:21 Laboratory Results 11/11/16 05:40 11/14/16 06:00 11/13/16 11/14/16 11/15/16 05:59 05:59 05:59 Intake Total 1020 868 650 Output Total 1900 2475 1150 Balance -880 -1607 -500 PT 15.7 SEC (12.0-15.0) H 11/14/16 06:00 INR 1.25 (0.83-1.16) H 11/14/16 06:00 - Physical Exam Constitutional: appears nourished Eyes: anicteric sclera Ears, Nose, Mouth, Throat: moist mucous membranes Cardiovascular: regular rate and rhythym, systolic murmur Respiratory: no respiratory distress, inspiratory crackles, No expiratory wheeze Gastrointestinal: normoactive bowel sounds Genitourinary: no bladder fullness Skin: warm Musculoskeletal: No asymmetric calves Neurologic: AAOx3 Psychiatric: interacting appropriately Lymph, Heme, Immunologic: no cervical LAD ICD10 Worksheet Patient Problems: Problems Problem Status Onset Acute blood loss anemia Acute S/P CABG x 4 Acute ~11/03/16 CAD, multiple vessel Chronic Dilated cardiomyopathy Chronic
[2016-11-14] MEDS ORDERED: SENNOSIDES/DOCUSATE SODIUM TAB PO PRN (21:00)
[2016-11-14] MEDS: ACETAMINOPHEN 650 MG/20.3 ML UDCUP PO PRN (22:33)
[2016-11-15 06:57] LABS: HEMATOCRIT 33.8 % (38.0-47.0); HEMOGLOBIN 10.5 g/dL (12.6-16.3)
[2016-11-15 07:16] LABS: ANION GAP 9 mEq/L (8-16); CALCIUM 8.5 mg/dL (8.5-10.4); CARBON DIOXIDE 34 mEq/l (22-31); CHLORIDE 97 mEq/L (97-110); CREATININE 0.8 mg/dL (0.6-1.0); GLOMERULAR FILTRATION RATE > 60; GLUCOSE 100 mg/dL (70-100); SODIUM 140 mEq/L (134-144)
[2016-11-15] MEDS: INSULIN LISPRO 100 UNIT/ML SC SCH ×2 (08:03→14:15)
[2016-11-15] MEDS ORDERED: SPIRONOLACTONE 25 MG TAB PO SCH (09:00)
[2016-11-15] MEDS ORDERED: POTASSIUM CL 10 MEQ TAB PO SCH (09:00)
[2016-11-15 09:17] VITALS: O2SAT 98
[2016-11-15] MEDS: VENLAFAXINE XR 150 MG CAP PO SCH (09:41)
[2016-11-15] MEDS: INSULIN GLARGINE 100 UNITS/ML SYRINGE SC SCH (09:41)
[2016-11-15] MEDS: ROSUVASTATIN CALCIUM 10 MG TAB PO SCH (09:42)
[2016-11-15] MEDS: CARVEDILOL 3.125 MG TAB PO SCH (09:42)
[2016-11-15] MEDS: ASPIRIN 81 MG CHEWABLE TAB PO SCH (09:42)
[2016-11-15] MEDS ORDERED: TORSEMIDE 10 MG TAB PO SCH (10:00)
--- NOTE | 2016-11-15 11:25 | SOAPPROG ---
SOAP Progress Note Assessment/Plan: Assessment: POD#12 CABG x 4 (GONZALEZ-LAD, SV-D1, SV-PLC, SV-PLR), EVH bilat thighs , prophylactic AtriClip ligation left atrial appendage, RCF IABP 1:1 POD#6 Rt thoracentesis, 130 ml Vascular access LUE PICC Severe CAD with severe LVSD/ISCM - No significant change in LVEF post 4 vessel revasc. Secondary prevention w ASA, BB, and statin. Acute systolic and diastolic CHF, class IV - Globally hypokinetic LV, w preop LVEF 15-20%, LVEDP 22. Medically stabilized with pressor support and diuresis prior to surgery. Successful separation from CPB on combo vasoactive support and IABP. Balloon pump removed POD#1. Drips steadily weaned. Bedside echo POD#2 notable for LVEF 20-25% on low dose dobut. F/U echo POD#9 w LVEF 20-25% on Coreg. AF prophylaxis with BB as tolerated; amio avoided d/t inc LFTs. Adjunctive Heart failure regimen as tolerated. Hx NSVT preop - Postop rhythm ST with freq PVCs, occ PACs and rare 4-8 beat runs NSVT. Amio started POD#4 with reduction in PVCs, but stopped d/t worsening LFTs. Lifevest prior to discharge as EF remains depressed. ICD eval in 3 mo. DREW with shock liver - Bump in Cr from normal to peak of 1.5 on POD#6. Assoc with inc transaminases and INR. Attributed to exacerbation of LCOS by over- diuresis and relative hypotension. Resolved after med adjustment, fluid resuscitation and temporary low dose dopamine. Acute postoperative respiratory insufficiency - Kept intubated and sedated for IABP tolerance. Subsequent slow vent wean well tolerated and extubated POD#2 without incident. No apparent focal neuro deficits. No significant pleural effusions or mucous plugging. Dietary advancement per IRONER. Nebs, MDIs, mucolytics per pulmonary. Acute expected blood loss anemia w thrombocytopenia and mild coagulopathy - Stable s/p 3u PRBC intraop. No evidence active bleeding. Precautionary HIT neg. Platelet counts rebounding. INR normalized. DM2, controlled - By preop A1c of 7.3%. Postop hyperglycemia managed with insulin gtt. Transition to basal/prandial/SSI as per ICU. IM assistance on PCU. Hx breast CA - Anastrozole to resume prior to discharge. Plan: Ok for tx to [facility]. Relax diuresis. [employer] rep to fit Lifevest there if unable to do here this am. Instructions re diet, meds, activity, f/u and wound care to be reviewed in presence of family. 11/15/16 10:30 Subjective: Doing ok. Improving strength and stamina. 1 lap around the tillman w a 2WW well tolerated. Standing up independently. No pain meds. Mild nausea limiting oral intake. +BM Objective: Vital Signs Temp Pulse Resp BP Pulse Ox 36.5 C 59 L 20 96/65 L 98 11/15/16 09:16 11/15/16 09:16 11/15/16 09:16 11/15/16 09:16 11/15/16 09:16 Laboratory Results 11/15/16 06:40 11/15/16 06:40 11/14/16 11/15/16 11/16/16 05:59 05:59 05:59 Intake Total 868 900 Output Total 2475 1600 Balance -1607 -700 PT 15.7 SEC (12.0-15.0) H 11/14/16 06:00 INR 1.25 (0.83-1.16) H 11/14/16 06:00 Holding SR. RBBB w freq PVCs, intermittent bigeminy. Marginal BP after vigorous diuresis. CO2 on the rise. Now below preop wt. On and off O2. [employer] rep unable to fit Lifevest yest. Physical Exam - Physical Exam General Appearance: alert, no apparent distress Respiratory: normal breath sounds Cardiac/Chest: other (reg irreg S1 & S2. Sternum grossly stable. Sternotomy and bilat venots ok.) Abdomen: non-tender, soft Skin: warm/dry Extremities: other (no visible edema) ICD10 Worksheet Patient Problems: Problems Problem Status Onset Acute blood loss anemia Acute S/P CABG x 4 Acute ~11/03/16 CAD, multiple vessel Chronic Dilated cardiomyopathy Chronic
[2016-11-15] MEDS: ANASTROZOLE 1 MG TAB PO SCH (11:33)
--- NOTE | 2016-11-15 12:26 | ASMTCMCOM ---
CM Note CM Note Notes: Mulitple phone calls with Marcell from [employer] [phone]. Marcell states that [employer] has declined authorization for Life Vest, [employer] instead requiring pre authorization paperwork. Case Management requested that Marcell re fax pre authorization paperwork for [employer]. Case Management faxed documents to [facility] at 12:20 pm. Transmission successful. Notified Dai JENSEN for Dr. Bustillo and spoke w/ Denise Henry RN for Dr. Bustillo to update. Plan for Life Care vest to be placed once pt is at [facility] and authorization is approved by [facility]. Remainder of d/c plan remains unchanged, pt is accepted at [facility]. Case Management to follow. Date Signed: 11/15/2016 12:25 PM Electronically Signed By:Rachelle Fischer
--- NOTE | 2016-11-15 13:09 | HOSPPROG ---
Hospitalist Progress Note Assessment/Plan: DIAGNOSES: -diabetes mellitus, blood sugar control; 1 episode of hypoglycemia earlier here -her sugars have been good range past 24 hours and I would recommend continuing her current NPH and short-acting as needed insulin; she can Resume her oral medications later as an outpatient PLANS: It sounds like she will be going to rehab later today and would recommend continuing her current the insulin orders SUBJECTIVE: Feels well No symptoms of hypoglycemia OBJECTIVE Vitals reviewed: No shortness of breath or fever symptoms stable without fever Exam: alert oriented resps not labored heart regular abd soft nondistended nontender, bowel sounds present iv site ok Objective: Vital Signs Temp Pulse Resp BP Pulse Ox 36.5 C 59 L 20 96/65 L 98 11/15/16 09:16 11/15/16 09:16 11/15/16 09:16 11/15/16 09:16 11/15/16 09:16 Laboratory Results 11/15/16 06:40 11/15/16 06:40 11/14/16 11/15/16 11/16/16 06:59 06:59 06:59 Intake Total 868 900 Output Total 2475 1600 Balance -1607 -700 PT 15.7 SEC (12.0-15.0) H 11/14/16 06:00 INR 1.25 (0.83-1.16) H 11/14/16 06:00 ICD10 Worksheet Patient Problems: Problems Problem Status Onset Acute blood loss anemia Acute S/P CABG x 4 Acute ~11/03/16 CAD, multiple vessel Chronic Dilated cardiomyopathy Chronic
--- NOTE | 2016-11-15 13:23 | PDIAF ---
- Diagnosis Diagnosis: CAD, severe ISCM, NSVT, freq PVCs s/p CABG; awaiting Lifevest fitting Code Status: Full Code - Medication Management Discharge Medications: Medications to Continue on Transfer Cholecalciferol Vit D3 [Vitamin D3 (*)] 2,000 units PO DAILY 09/29/13 [Last Taken 10/31/16] Polyvinyl Alcohol/Povidone/Pf [Refresh Classic Eye Drops] 1 each OP BID PRN [Last Taken Unknown] Rosuvastatin Calcium [Crestor] 10 mg PO DAILY 09/29/13 [Last Taken 10/31/16] Anastrozole [Arimidex 1 mg (*)] 1 mg PO DAILY 10/31/16 [Last Taken 10/31/16] Venlafaxine HCl [Venlafaxine HCl ER] 150 mg PO BID 10/31/16 [Last Taken 10/31/16 ] Acetaminophen [Tylenol 650/20.3ML Oral Liq (*)] 325 - 650 mg PO Q4 PRN #0 udcup 11/15/16 [Last Taken Unknown] Albuterol [Proventil Neb] 3 ml IH Q4HRS PRN #0 deyvial 11/15/16 [Last Taken Unknown] Aspirin [Aspirin 81mg (*)] 81 mg PO DAILY #0 tab.chew 11/15/16 [Last Taken Unknown] Carvedilol [Coreg (*)] 3.125 mg PO BIDMEAL #0 tab 11/15/16 [Last Taken Unknown] Insulin Glargine [Lantus 100 UNITS/ML (*)] 10 units SC DAILY #0 ml 11/15/16 [ Last Taken Unknown] Insulin Lispro [humALOG LISPRO 100 units/ml (*)] 0 unit SC ACHS #0 unit [Last Taken Unknown] Polyethylene Glycol 3350 [Miralax 17 gm (*)] 17 gm PO DAILY PRN #0 pkt 11/15/16 [Last Taken Unknown] Potassium Cl [Klor-Con 10 meq (RX)] 10 meq PO DAILY #0 tab 11/15/16 [Last Taken Unknown] Sennosides/Docusate Sodium [Senokot-S] 1 - 2 tab PO BID PRN #0 tab 11/15/16 [ Last Taken Unknown] Spironolactone [Aldactone 25 MG (*)] 25 mg PO DAILY #0 tab 11/15/16 [Last Taken Unknown] Torsemide [Demadex] 10 mg PO DAILY AT 10AM #0 tab 11/15/16 [Last Taken Unknown] traMADol [Ultram 50 mg (*)] 25 - 50 mg PO Q6HRS PRN #0 tab 11/15/16 [Last Taken Unknown] Discharge Medications: Refer to the Discharge Home Medication list for PRN reason. PICC Care - Routine: N/A - Orders Services needed: Registered Nurse (cardiorespiratory monitoring), Physical Therapy (sternal precautions x 2 more weeks), Occupational Therapy (functional mobility) Oxygen: @ 1 Lpm continuously or as directed by SpO2. Titrate to SpO2 > 89%. Diet Recommendation: ADA 2000 consistent carb, fluid restriction (use comment for amount) (1800 ml daily) Diet Texture: Dysphagia 3 - Advanced - Moist, Bite-Size, Thin Liquids, Meds Whole in Puree Weigh Patient: daily Vinson: Not applicable Wound Care Instructions: daily soap and water. ok to leave all wounds open to air. avoid ointments until scabs off. avoid underwater immersion until scabs off Activity/Weight Bearing Restrictions: Avoid lifting > 8 lbs with an outstretched arm. Avoid push/pull activities Additional: Call [facility] ([place]) for wt gain > 2 lbs overnight, absolute wt gain > 5 lbs, progressive leg swelling, resting HR < 60 or > 120, SBP < 90 or > 150, supplemental O2 req > 3 Lpm, or any wound concerns. Call PCP for assistance diabetic managment. Call [facility] (primary shingles roofer helper Edgar or nuclear medicine medical director Silvia) for any rhythm or Lifevest concerns. - Labs/Radiology BMP Date: 11/19/16 (results to Dr Bustillo) CBC Date: 11/19/16 (results to Dr Bustillo) Imaging Orders: CXR prior to surgical appt. Budget 30 min for xray dept. - Follow Up Care Current Providers and Referrals: Emeterio Bustillo DO [Doctor of Osteopathy] - 11/20/16 1:30 pm Placido Fontanez DO [Primary Care Provider] - Alberto Vega MD [Medical Doctor] - (follow up in 3 mo or as directed) Randell Hernández MD [Medical Doctor] - (Follow up within 2 wks of release from [facility])
[2016-11-15 14:33] VITALS: BP 103/63; PULSE 76; RESP 13; TEMP 98.2
--- NOTE | 2016-11-15 17:30 | PDDCSUM ---
Discharge Summary Discharge Summary: DATE OF ADMISSION: 10/31/16 DATE OF DISCHARGE: 11/15/16 DISPOSITION: Transferred to [facility], PRINCIPAL DISCHARGE DIAGNOSES: 1. Acute systolic and diastolic congestive heart failure, medically and surgically compensated 2. Ischemic cardiomyopathy with severe multivessel coronary artery disease, treated with coronary artery bypass grafting x 4 3. Postoperative acute expected blood loss anemia with thrombocytopenia and coagulopathy 4. Postoperative low cardiac output syndrome with multiorgan dysfunction 5. Perioperative nonsustained ventricular tachycardia, awaiting insurance authorization for a [employer] LifeVest FOLLOW UP APPOINTMENTS: 1. CV surgery: with Dr Bustillo at [facility] on 11/20 at 1:30 pm. 2. Cardiology: with Dr Hernández at [facility] within 2 weeks of release from [facility]. Appointment to be established during surgical visit. 3. EP Cardiology: with Dr Vega at [facility] in 3 months for review of rhythm , consideration cardiac resynchronization therapy. FOLLOW UP TESTIN. CBC and BMP on 11/19. Results to [facility]. 2. CXR prior to surgical appointment. ALLERGIES/SENSITIVITIES: PCN causing hives, Hydrocodone and Propoxyphene causing severe nausea with vomiting DISCHARGE MEDICATIONS: see medical reconciliation form for complete details Essentially as on admission (Crestor, vit D3, Refresh eye drops, Anastrozole, Venlafaxine) with the following adjustments: 1. Hold Metformin 500 mg BID 2, Hold Glimepiride 4 mg BID 3. Hold Insulin Aspart 15u SC BID 4. Reduce Insulin glargine from 20u SC BID to 10u SC daily 5. Hold Losartan/HCTZ 100-12.5 one tab daily NEW prescriptions: 1. ASA 81 mg daily 2. Coreg 3.125 mg BID 3. Demadex 10 mg daily 4. KlorCon 10 meq daily 5. Tramadol 25-50 mg q6h prn incisional discomfort 6. SSI w Lispro 7. Oxygen @ 1Lpm continuously or as directed by SpO2 CONSULTANTS: CV surgery (Iwona), Pulmonology/critical care (Gigi), General surgery ( Debbie), Interventional radiology (Jose Roberto), Hospitalist (Chris) PROCEDURES/IMAGIN/19 (Nita): Left and right heart catheterization with selective coronary angiography and left ventriculogram. Access via right femoral vessels. 11/02 (Debbie): Ultrasound guided placement of right internal jugular central venous catheter 11/03 (Iwona): Coronary artery bypass grafting x 4 (GONZALEZ-LAD, SV-D1, SV-PLC, SV- PLR). Takedown left internal mammary artery. Endoscopic vein harvest bilateral thighs. Prophylactic AtriClip ligation of the left atrial appendage. Placement of a left common femoral intra-aortic balloon pump. 11/04 (Larry): Removal of IABP 11/05 (An): Limited transthoracic echocardiogram 11/09 (Jose Roberto): Ultrasound guided placement of LUE PICC 11/09 (Arnol): Ultrasound guided right thoracentesis, 130 ml 11/[address] 11/10 (Don): Transthoracic echocardiogram 11/12 (Don): Limited transthoracic echocardiogram HISTORY OF PRESENT ILLNESS: 81 yo female with multiple cardiac risk factors and worsening exertional dyspnea to the point of breathlessness at rest, found to have severe LVSD with frequent PVCs and admitted to the hospital for further evaluation and treatment of acute systolic heart failure. BNP on admission 5830. Cardiac cath revelatory of severe multivessel CAD with global hypokinesis and elevated filling pressures. Medically stabilized and referred for urgent surgical revascularization. PERTINENT PAST MEDICAL HISTORY: Type 2 diabetes mellitus, carotid artery disease s/p CEA 2011 , HTN, dyslipidemia, FRANKY on CPAP, breast CA 2013 treated with XRT/lumpectomy, GERD, chronic back pain, chronic headaches, depression with anxiety (including panic attacks) ABBREVIATED HOSPITAL COURSE BY ACTIVE PROBLEM LIST: 1. Severe CAD with severe LVSD/ISCM - No significant change in LVEF post 4 vessel revasc. Secondary prevention w ASA, BB, and statin. Outpatient determination of TEMPERING MACHINE OPERATOR/ICD in 3 mo. 2. Acute systolic and diastolic CHF, class IV - Globally hypokinetic LV w preop LVEF 15-20%, LVEDP 22. Medically stabilized with pressor support and diuresis prior to surgery. Successful separation from CPB on combo vasoactive support and IABP. Balloon pump removed POD#1. Drips steadily weaned. Bedside echo POD#2 notable for LVEF 20-25% on low dose dobut. F/U echo POD#9 w LVEF 20-25% on Coreg. AF prophylaxis with BB as tolerated; amio avoided d/t inc LFTs. Adjunctive heart failure regimen as tolerated. Skilled by PT for SNF rehab. 3. Hx NSVT preop - Postop rhythm ST with freq PVCs, occ PACs and rare 4-8 beat runs NSVT. Amio started POD#4 with reduction in PVCs, but stopped d/t worsening LFTs. ICD eval in 3 mo. Interim LifeVest as post revasc EF still markedly depressed. 4. DREW with shock liver - Bump in Cr from normal to peak of 1.5 on POD#6. Assoc with inc transaminases and INR. Attributed to exacerbation of LCOS by over- diuresis and relative hypotension. Resolved after med adjustment, fluid resuscitation and temporary low dose dopamine. 5. Acute postoperative respiratory insufficiency - Kept intubated and sedated for IABP tolerance. Subsequent slow vent wean well tolerated and extubated POD# 2 without incident. No apparent focal neuro deficits. No significant pleural effusions or mucous plugging. Dysphagia 3 diet per SURVEY RESEARCH ASSOCIATE. Bronchodilators and mucolytics prn. CPAP at night. 6. Acute expected blood loss anemia w thrombocytopenia and mild coagulopathy - Stable s/p 3u PRBC intraop. No evidence active bleeding. Precautionary HIT neg. 7. DM2, controlled - By preop A1c of 7.3%. Postop hyperglycemia managed with insulin gtt. Transition to basal/prandial/SSI as per ICU. IM assistance on PCU. 8. Hx breast CA - Anastrozole resumed prior to discharge.
--- NOTE | 2016-11-16 09:34 | ASDISCHSUM ---
Discharge Information Plan Status:SNF Medically Cleared to Leave:11/15/2016 Discharge Date:11/15/2016 02:33 PM CM D/C Disposition:[facility] Facility ADT D/C Disposition:[facility] Facility Projected Discharge Date:11/15/2016 12:00 AM Transportation at D/C:Wheelchair Van Discharge Delay Reason: Follow-Up Date:11/15/2016 12:00 AM Discharge Slot: Final Diagnosis: Placement Information Referral Type:*Care Home/SNF Referral ID:[id number] Provider Name:[facility] Address 1:[address] Address 2: City:[place] Selection Factors: State:[place] Patient Contact Information Contact Name:DEEPA Relationship: Address:[address] [place] City:[place] Alternate Phone: State/Zip Code:[place] [address] Email: Financial Information Financial Class:Medicare Advantage Plans Primary Plan Desc:[employer]EWEL [employer]KOLE MEDICARE Primary Plan Number:[id number] Secondary Plan Desc: Secondary Plan Number: Assessment Information [facility] CM Progress Note CM Note CM Note Notes: Met w/ pt, and son; discussed SNF options; family requested referral sent to [facility] in [place]. Faxed referral. Unable to take pt due to insurance. Provided list of [place] facilities. CM to follow up w/ family tomorrow. Date Signed: 11/11/2016 03:04 PM Electronically Signed By:Modesta Doty [facility] CM Progress Note CM Note CM Note Notes: Recieved call from [facility] and informed CM that [facility] inpatient rehab has submitted request for auth. Will keep [facility] updated on possible dispo plan to [facility] inpatient rehab. Spoke w/ [facility] inpatient rehab, [place]. Was informed that they are waiting for result of auth. Auth for inpatient rehab denied. [facility] accepted pt. Tenative d/c for tomorrow. Need prior auth for life vest. CM coordinating w/ [facility] and [facility] for Dr. Bustillo. Date Signed: 11/14/2016 03:00 PM Electronically Signed By:Modesta Doty [facility] CM Progress Note CM Note CM Note Notes: Mulitple phone calls with Marcell from [facility] [employer] [phone]. [facility] states that [facility] has declined authorization for Life Vest, [employer] instead requiring pre authorization paperwork. Case Management requested that [facility] re fax pre authorization paperwork for [facility]. Case Management faxed documents to [facility] at 12:20 pm. Transmission successful. Notified Dai JENSEN for Dr. Bustillo and spoke w/ Denise Henry RN for Dr. Bustillo to update. Plan for Life Care vest to be placed once pt is at [facility] and authorization is approved by [facility]. Remainder of d/c plan remains unchanged, pt is accepted at [facility]. Case Management to follow. Date Signed: 11/15/2016 12:25 PM Electronically Signed By:Rachelle Fischer Intervention Information Intervention Type:*IM-Signed Date of Service:11/14/2016 11:47 AM Patient Type:Inpatient Staff Member:Debbie Israel Hours: Discipline: Severity: Comment:
== END 2016-11-15 14:33 | DRG 233 ==
LOC: F2W 14:46 → OBSVTOIN 15:30 → F2N 11-01 12:08 → F2W 11-08 09:45 → F2N 11-09 08:39 → F2W 11-11 06:29
PROVIDERS: ADMIT Internal Medicine Cardiovascular Disease; ATTEND Thoracic Surgery (Cardiothoracic Vascular Surgery)
PROC: B2111ZZ Fluoroscopy of Multiple Coronary Arteries using Low Osmolar Contrast (ICD-10-PCS; 2016-11-01)
PROC: 4A023N8 Measurement of Cardiac Sampling and Pressure, Bilateral, Percutaneous Approach (ICD-10-PCS; 2016-11-01)
PROC: B2151ZZ Fluoroscopy of Left Heart using Low Osmolar Contrast (ICD-10-PCS; 2016-11-01)
PROC: 05HM33Z Insertion of Infusion Device into Right Internal Jugular Vein, Percutaneous Approach (ICD-10-PCS; 2016-11-02)
PROC: 5A02210 Assistance with Cardiac Output using Balloon Pump, Continuous (ICD-10-PCS; principal; 2016-11-03 11:00)
PROC: 02L70CK Occlusion of Left Atrial Appendage with Extraluminal Device, Open Approach (ICD-10-PCS; principal; 2016-11-03 11:00)
PROC: 5A1221Z Performance of Cardiac Output, Continuous (ICD-10-PCS; principal; 2016-11-03 11:00)
PROC: 021209W Bypass Coronary Artery, Three Arteries from Aorta with Autologous Venous Tissue, Open Approach (ICD-10-PCS; principal; 2016-11-03 11:00)
PROC: 06BQ4ZZ Excision of Left Saphenous Vein, Percutaneous Endoscopic Approach (ICD-10-PCS; principal; 2016-11-03 11:00)
PROC: 02100Z9 Bypass Coronary Artery, One Artery from Left Internal Mammary, Open Approach (ICD-10-PCS; principal; 2016-11-03 11:00)
PROC: 06BP4ZZ Excision of Right Saphenous Vein, Percutaneous Endoscopic Approach (ICD-10-PCS; principal; 2016-11-03 11:00)
PROC: 5A1945Z Respiratory Ventilation, 24-96 Consecutive Hours (ICD-10-PCS; principal; 2016-11-03 11:00)
PROC: 30233N1 Transfusion of Nonautologous Red Blood Cells into Peripheral Vein, Percutaneous Approach (ICD-10-PCS; 2016-11-03 11:00)
PROC: 02PA3RZ Removal of Short-term External Heart Assist System from Heart, Percutaneous Approach (ICD-10-PCS; 2016-11-04)
PROC: 0W993ZX Drainage of Right Pleural Cavity, Percutaneous Approach, Diagnostic (ICD-10-PCS; 2016-11-09)
PROC: 02HV33Z Insertion of Infusion Device into Superior Vena Cava, Percutaneous Approach (ICD-10-PCS; 2016-11-09)
PROC: 0B9F8ZX Drainage of Right Lower Lung Lobe, Via Natural or Artificial Opening Endoscopic, Diagnostic (ICD-10-PCS; 2016-11-10)
DX: I25.110 Atherosclerotic heart disease of native coronary artery with unstable angina pectoris (principal); I11.0 Hypertensive heart disease with heart failure; I50.41 Acute combined systolic (congestive) and diastolic (congestive) heart failure; D62 Acute posthemorrhagic anemia; N17.9 Acute kidney failure, unspecified; J98.11 Atelectasis; R06.89 Other abnormalities of breathing; I25.5 Ischemic cardiomyopathy; E78.5 Hyperlipidemia, unspecified; G47.33 Obstructive sleep apnea (adult) (pediatric); K21.9 Gastro-esophageal reflux disease without esophagitis; G89.29 Other chronic pain; F41.8 Other specified anxiety disorders; E11.649 Type 2 diabetes mellitus with hypoglycemia without coma; Z79.84 Long term (current) use of oral hypoglycemic drugs; Z85.3 Personal history of malignant neoplasm of breast
CPT/HCPCS: 82947-QW; 86022-90; 92523-GN; 92526-GN; 92610-GN; 97116-GP; 97162-GP; 97166-GO; 97530-GO; 97530-GP; 97535-GO; C1725; C1751; G8978-GP-CK; G8979-GP-CJ; J0153; J0282; J0461; J0690; J1250; J1265; J1644; J1650; J1815; J1940; J2001; J2060; J2150; J2250; J2260; J2370; J2405; J2440; J2704; J2720; J2765; J2930; J2997; J3010; J7060; P9016; P9041; P9047; Q9967

== ENCOUNTER → 2016-11-20 | Outpatient (CLI) | payer OTHER | LOC: FIMAGING 12:56 | PROVIDERS: ATTEND Thoracic Surgery (Cardiothoracic Vascular Surgery) | DX: I51.7 Cardiomegaly (principal); J90 Pleural effusion, not elsewhere classified; Z95.1 Presence of aortocoronary bypass graft ==

== ENCOUNTER → 2016-12-04 | Outpatient (CLI) | payer OTHER | LOC: EDSTATUS 09:16 → FIMAGING 09:16 | PROVIDERS: ATTEND Thoracic Surgery (Cardiothoracic Vascular Surgery) | DX: I51.7 Cardiomegaly (principal); J90 Pleural effusion, not elsewhere classified; Z95.1 Presence of aortocoronary bypass graft ==

== ENCOUNTER → 2017-02-18 | Outpatient (CLI) | payer OTHER | LOC: CIMAGING 12:45 | PROVIDERS: ATTEND Internal Medicine Hematology & Oncology | DX: R92.0 Mammographic microcalcification found on diagnostic imaging of breast (principal) | CPT/HCPCS: G0206 ==

== ENCOUNTER → 2017-02-24 | Outpatient (CLI) | payer OTHER | LOC: CIMAGING 12:09 | PROVIDERS: ATTEND Family Medicine | DX: I51.7 Cardiomegaly (principal); J98.4 Other disorders of lung | CPT/HCPCS: 71020-PO ==

== ENCOUNTER 2017-03-18 15:42 | Inpatient (IN) | payer OTHER ==
--- NOTE | 2017-03-18 16:23 | EDPHY ---
H & P Time Seen by Provider: 03/18/17 16:08 HPI/ROS: CHIEF COMPLAINT: Dizziness HISTORY OF PRESENT ILLNESS: The patient is an 18-year-old female with history of coronary artery disease (CABG 10/30), cardiomyopathy, atrial fibrillation, and carotid endarterectomy who presents to the emergency department with worsening dizziness. The patient states that since October when she had her cardiac bypass, she has had mild dizziness. However, on stated she developed significant dizziness. Is mildly worse with movement. It does not resolve when she remains still. She has had some difficulty ambulating due to balance issues. She denies headache. She has had mild blurred vision. Today her 1st episode of nausea and vomiting x1. She new focal weakness or numbness. No fevers or chills. No chest pain is of breath. The patient is currently wearing a life vest and is scheduled to have a AICD placed neck Thursday. She has had no defer relations. REVIEW OF SYSTEMS: My complete review of systems is negative except as mentioned in the HPI. Past Medical/Surgical History: Includes coronary artery disease, hypertension, obstructive sleep apnea, diabetes, GERD, breast cancer, atrial fibrillation, poor cardiac output Past surgical history: Includes cholecystectomy, hysterectomy, CABG times for Social history: Patient does not smoke or drink alcohol Smoking Status: Never smoked Physical Exam: Vitals noted. 94/53, 81, 18, 82% on room air Constitutional: Initial Vital Signs Heart Rate 81 03/18/17 15:44 Respiratory Rate 18 03/18/17 15:44 Blood Pressure 94/53 L 03/18/17 15:44 O2 Sat (%) 92 03/18/17 15:44 O2 Delivery Mode Room Air Allergies/Adverse Reactions: Penicillins Allergy (Intermediate, Verified 03/18/17 15:51) Hives propoxyphene Allergy (Unknown, Unverified 03/18/17 15:51) Vomiting hydrocodone Allergy (Verified 03/18/17 15:51) Vomiting Home Medications: Medication Instructions Recorded Cholecalciferol Vit D3 [Vitamin D3 2,000 units PO DAILY 09/29/13 (*)] Polyvinyl Alcohol/Povidone/Pf 1 each OP BID PRN 09/29/13 [Refresh Classic Eye Drops] Rosuvastatin Calcium [Crestor] 10 mg PO DAILY 09/29/13 Anastrozole [Arimidex 1 mg (*)] 1 mg PO DAILY 10/31/16 Venlafaxine HCl [Venlafaxine HCl 150 mg PO BID 10/31/16 ER] Acetaminophen [Tylenol 650/20.3ML 325 - 650 mg PO Q4 PRN #0 udcup 11/15/16 Oral Liq (*)] Albuterol [Proventil Neb] 3 ml IH Q4HRS PRN #0 deyvial 11/15/16 Aspirin [Aspirin 81mg (*)] 81 mg PO DAILY #0 tab.chew 11/15/16 Carvedilol [Coreg (*)] 3.125 mg PO BIDMEAL #0 tab 11/15/16 Insulin Glargine [Lantus 100 10 units SC DAILY #0 ml 11/15/16 UNITS/ML (*)] Insulin Lispro [humALOG LISPRO 100 0 unit SC ACHS #0 unit 11/15/16 units/ml (*)] Polyethylene Glycol 3350 [Miralax 17 gm PO DAILY PRN #0 pkt 11/15/16 17 gm (*)] Potassium Cl [Klor-Con 10 meq (RX)] 10 meq PO DAILY #0 tab 11/15/16 Sennosides/Docusate Sodium 1 - 2 tab PO BID PRN #0 tab 11/15/16 [Senokot-S] Torsemide [Demadex] 10 mg PO DAILY AT 10AM #0 tab 11/15/16 traMADol [Ultram 50 mg (*)] 25 - 50 mg PO Q6HRS PRN #0 tab 11/15/16 Entresto 24 mg/26 mg (RX) 03/18/17 Medical Decision Making - Diagnostics EKG Interpretation: Sinus tachycardia 105. First-degree AV block. Right bundle branch block. Q- wave in II. Imaging Results: Imaging Impressions Chest X-Ray 03/18/17 16:24 Impression: 1. Cardiomegaly. No failure or effusion. 2. No pneumonia. ED Course/Re-evaluation: In the emergency department discussed possible etiologies with the patient and family. I answered all questions. Laboratory studies were ordered the patient given saline 250 mL IV. The patient was given meclizine 25 mg orally. The patient has concerns undergoing an MRI. She has anxiety. Had a long discussion with her regarding the reason for testing. She will undergo MRI of the brain. She will T angiogram of her neck. She has a history of an endarterectomy. Patient will have an echo due to her dizziness and history of poor cardiac output. Her oxygen saturation was low at 92%. Because of this she will have a chest x-ray. I reviewed the patient's laboratory studies. Patient's white count was normal. Macro was 47. Patient's chemistry panel was notable for an elevated potassium of 5.6. Anion gap is elevated at 17. Clean was elevated 1.6. This is a from her previous value of 0.9. Troponin is elevated at 0.054. The patient will be given a repeat dose of normal saline 250 mg IV. EKG is added to order set. Carotid ultrasound ordered. I discussed the case with Dr. Scottie Chang. He will admit the patient for further observation. We are awaiting the MRI results as well as echo results by Cardiology. Differential Diagnosis: My initial includes but is not limited to ACS, acute IA, dysrhythmia, cardiomyopathy, ischemic CVA, hemorrhagic CVA, dissection, aneurysm, carotid occlusion, pneumonia, electrolyte abnormality, sugar abnormality Critical Care Time: The patient required 35 min of critical care time. This was exclusive of any unbundled procedure. This was due to the patient's need for frequent rechecks. The patient has underlying cardiac disease and cardial myopathy she was gingerly given fluid. She had abnormal laboratory studies including elevated troponin, elevated creatinine, elevated potassium. The patient required consultation with cardiology as well as with Dr. chang - Data Points Laboratory Results: Laboratory Results 03/18/17 16:35 03/18/17 16:35 03/18/17 03/18/17 03/18/17 16:35 16:35 16:35 WBC 10.12 10^3/uL H 10^3/uL (3.80-9.50) RBC 5.06 10^6/uL 10^6/uL (4.18-5.33) Hgb 15.8 g/dL g/dL (12.6-16.3) Hct 47.8 % H % (38.0-47.0) MCV 94.5 fL fL (81.5-99.8) MCH 31.2 pg pg (27.9-34.1) MCHC 33.1 g/dL g/dL (32.4-36.7) RDW 13.9 % % (11.5-15.2) Plt Count 268 10^3/uL 10^3/uL (150-400) MPV 11.1 fL fL (8.7-11.7) Neut % (Auto) 69.4 % % (39.3-74.2) Lymph % (Auto) 20.0 % % (15.0-45.0) Hinds % (Auto) 9.1 % % (4.5-13.0) Eos % (Auto) 0.7 % % (0.6-7.6) Baso % (Auto) 0.5 % % (0.3-1.7) Nucleat RBC Rel Count 0.0 % % (0.0-0.2) Absolute Neuts (auto) 7.03 10^3/uL H 10^3/uL (1.70-6.50) Absolute Lymphs (auto) 2.02 10^3/uL 10^3/uL (1.00-3.00) Absolute Monos (auto) 0.92 10^3/uL H 10^3/uL (0.30-0.80) Absolute Eos (auto) 0.07 10^3/uL 10^3/uL (0.03-0.40) Absolute Basos (auto) 0.05 10^3/uL 10^3/uL (0.02-0.10) Absolute Nucleated RBC 0.00 10^3/uL 10^3/uL (0-0.01) Immature Gran % 0.3 % % (0.0-1.1) Immature Gran # 0.03 10^3/uL 10^3/uL (0.00-0.10) PT 14.2 SEC SEC (12.0-15.0) INR 1.08 (0.83-1.16) APTT 29.0 SEC SEC (23.0-38.0) Sodium 137 mEq/L mEq/L (134-144) Potassium 5.6 mEq/L H mEq/L (3.5-5.2) Chloride 99 mEq/L mEq/L (97-110) Carbon Dioxide 21 mEq/l L mEq/l (22-31) Anion Gap 17 mEq/L H mEq/L (8-16) BUN 81 mg/dL H mg/dL (7-23) Creatinine 1.6 mg/dL H mg/dL (0.6-1.0) Estimated GFR 31 Glucose 123 mg/dL H mg/dL (70-100) Calcium 10.8 mg/dL H mg/dL (8.5-10.4) Phosphorus 5.3 mg/dL H mg/dL (2.5-4.5) Troponin I 0.054 ng/mL H ng/mL (0.000-0.034) Medications Given: Discontinued Medications Sodium Chloride (Ns) 250 mls @ 1,500 mls/hr IV ONCE ONE Stop: 03/18/17 17:49 Last Admin: 03/18/17 17:42 Dose: 250 mls Meclizine HCl (Meclizine Hcl) 25 mg PO EDNOW ONE Stop: 03/18/17 16:41 Last Admin: 03/18/17 16:45 Dose: 25 mg Departure - Departure Disposition: [facility] Acute Clinical Impression: Elevated troponin, Dizziness, Hyperkalemia, Renal insufficiency Cardiomyopathy Qualifiers: Cardiomyopathy type: unspecified Qualified Code(s): I42.9 - Cardiomyopathy, unspecified Condition: Good
[2017-03-18] MEDS ORDERED: MECLIZINE HCL 25 MG TAB PO ONE (16:40)
[2017-03-18 16:49] LABS: PLATELET COUNT 268 10^3/uL (150-400)
[2017-03-18 17:11] LABS: INR 1.08 (0.83-1.16); PROTIME(PATIENT) 14.2 SEC (12.0-15.0)
[2017-03-18] MEDS ORDERED: NS 250 ML IV ONE ×2 (17:40)
--- NOTE | 2017-03-18 17:50 | CPEKG ---
Heart Rate: 105 RR Interval: 571 P-R Interval: 232 QRSD Interval: 134 QT Interval: 416 QTC Interval: 551 P [place]: 0 QRS [place]: -87 T Wave [place]: 80 EKG Severity - ABNORMAL ECG - EKG Impression: SINUS TACHYCARDIA EKG Impression: RUN OF VENTRICULAR PREMATURE COMPLEXES EKG Impression: FIRST DEGREE AV BLOCK EKG Impression: RIGHT BUNDLE BRANCH BLOCK EKG Impression: INFERIOR INFARCT, AGE INDETERMINATE EKG Impression: ANTERIOR INFARCT, AGE INDETERMINATE Electronically Signed By: Manny Raza 18-Mar-2017 20:14:57
[2017-03-18] MEDS ORDERED: ONDANSETRON 4 MG/2 ML VIAL IVP PRN (18:33)
[2017-03-18] MEDS ORDERED: ONDANSETRON DISINTEGRATING 4 MG TAB PO PRN (18:33)
[2017-03-18] MEDS ORDERED: ACETAMINOPHEN 325 MG TAB PO PRN (18:33)
[2017-03-18] MEDS ORDERED: D50W 25 GM/50 ML SYR IVP PRN (18:38)
[2017-03-18] MEDS ORDERED: NS 1,000 ML IV SCH (18:45)
--- NOTE | 2017-03-18 19:24 | GHP ---
[f rep st] HISTORY AND PHYSICAL DATE OF ADMISSION: 03/18/2017 CHIEF COMPLAINT: Dizziness. HISTORY OF PRESENT ILLNESS: This is an 81-year-old female, who had a 4-vessel CABG this summer, who presents with dizziness. She has felt slightly dizzy since her CABG, however, acutely worse about a week ago. She vomited twice today and she had 2 episodes of diarrhea as well. These were both nonbl oody. She has felt slightly nauseous. Notably, her Demadex dose was increased from 30 mg daily to 6 0 mg daily about 3 weeks ago due to weight gain. She has lost about 25 pounds in the last 3 weeks, i ncluding significant decrease in her lower extremity edema. She is also taking Entresto. She sees Nelida Morataya. Her last EF was 25%. She has ongoing chest wall pain from her CABG, but no change in this , and no exertional chest pain. She has planned to have a biventricular AICD placed next Thursday by Dr. Vega. She is currently wear ing a LifeVest. PAST MEDICAL/SURGICAL HISTORY: 1. Carotid endarterectomy. 2. Coronary artery disease, status post CABG. 3. Systolic CHF with an EF of 25%. 4. Atrial fibrillation. 5. Breast cancer. 6. Depression. 7. Diabetes mellitus. 8. Hypertension. 9. Hyperlipidemia. 10. Pancreatitis. 11. Peripheral vascular disease. 12. FRANKY, on CPAP. 13. Meniere disease. 14. Iron deficiency. 15. Cataract surgery. 16. Cholecystectomy. 17. Hysterectomy. MEDICATIONS: Please see medication reconciliation. ALLERGIES: Penicillin, propoxyphene, and hydrocodone. SOCIAL HISTORY: She is accompanied by her , as well as her daughter. FAMILY HISTORY: Reviewed and noncontributory. REVIEW OF SYSTEMS: A 10-point review of systems is conducted and is negative except per HPI. PHYSICAL EXAMINATION: VITAL SIGNS: Blood pressure 94/53, heart rate 81, respiration rate 18, sattin g 98% on room air. GENERAL: The patient is a very pleasant female, who is resting comfortably, in n o acute distress. HEENT: Normocephalic, atraumatic. CARDIOVASCULAR: A midline sternotomy scar. R egular rate and rhythm. She has a faint systolic murmur. She has no elevated JVD. EXTREMITIES: Mi ldly cool. PULMONARY: Lungs are clear to auscultation bilaterally. ABDOMEN: Soft, nontender, nond istended. SKIN: No rash. : No Vinson. NEUROLOGIC: Alert and oriented x3. She is moving all ex tremities. PSYCHIATRIC: Normal mood and affect. LABS: Notable for hematocrit of 47, white count of 10, INR of 1.08. Potassium 5.6, creatinine 1.6, BUN 81. Troponin 0.054. Phosphorus 5.3. DATA: Chest x-ray, which I personally viewed and interpreted, shows cardiomegaly, nothing acute. EKG, which I personally viewed and interpreted, shows a sinus rhythm. She has a first-degree AV bloc k, she has a right bundle branch block. There is a PVC present. I compared this to her EKG done in October of this year and it has a slightly different bundle branch morphology. IMPRESSION AND PLAN: 1. Dizziness: I primarily suspect that this is hypovolemia due to overdiuresis given her hypotensio n, acute kidney injury, elevated hemoglobin and hematocrit. Her blood pressures come up with 0.25 L of normal saline given in the ED. I will give her another 0.25 L, recheck a basic metabolic panel, t hen run in fluids gently overnight. Initially, an MRI of her brain was ordered, I have canceled this for the time being. Could consider this. We will do basic neurologic workup including ultrasound o f her carotids and CT of her head to rule out any major abnormalities. She does have a history of a CEA. Could also consider this may be Meniere disease, though I think as above cardiac is most likely . We will trend her troponins, recheck an EKG in the morning, which is slightly different from her l ast EKG in October. 2. Coronary artery disease, ischemic cardiomyopathy with an ejection fraction of 20%: She has plans for an automatic implantable cardioverter-defibrillator next Thursday by Dr. Vega. Would apprise [facility] rdiology tomorrow of her admission here for their planning. We will continue her beta imelda, but h old her THERESA inhibitor and diuretics. Continue her aspirin. 3. Diabetes: Give her her home glargine, sliding-scale insulin, follow glucoses. 4. Elevated troponin: We will trend these. She is not having any change in her chest pain. 5. Hyperkalemia: Due to her kidney injury and her potassium supplementation, hold potassium, rehydr ate and recheck. 6. Code status is full. /[id number]/MODL
--- NOTE | 2017-03-18 21:15 | ECHO ---
[email or web address] [address] [address] Main: [phone] Fax: Transthoracic Echocardiogram Name: JAKE RAI MR#: [id number] Study Date: 03/18/2017 Study Time: 05:23 PM Date of : 1935 Age: 81 year(s) Height: 154.9 cm (61 in.) Weight: 56.7 kg (125 lb.) BSA: 1.55 m2 Gender: Female Examination: Echo Indication: Post CABG, Dizziness, Pacemaker scheduled 03/25/17, Life Vest Image Quality: Contrast: Requested by: Katherin Mckay BP: 124 mmHg/39 mmHg Heart Rate: Rhythm: Atrial fibrillation Indication: Post CABG, Dizziness, Pacemaker scheduled 03/25/17, Life Vest Procedure Staff Overlay Plastician: Goyo Parra Reading Physician: Hernandez Morataya Requesting Provider: Conclusions: 1)Severely reduced LV systolic function with a LVEF of 25% and global hypokinesis. 2)Diastolic dysfunction present. 3)Mild left atrial enlargement noted. 4)Aortic valve sclerosis without . Mild AI noted. 5)Mild MR without MV prolapse. 6)Prominent pericardial fat pad vs small pericardial effusion. No tamponade physiology noted. Measurements: Chambers Valvular Assessment AV/MV Valvular Assessment TV/PV Normal Normal Normal Name Value Range Name Value Range Name Value Range Ao Crystal (MM): 3.1 cm (2.2 cm-3.7 AV Vmax: 1.33 m/s (1 m/s-1.7 PV Vmax: 0.69 m/s (0.6 m/s-0.9 cm) m/s) m/s) IVSd (2D): 0.9 cm (0.6 cm-1.1 AV maxP mmHg ( - ) PV PGmax: 2 mmHg ( - ) cm) LVOT Vmax: 0.55 m/s (0.7 m/s-1.1 LVDd (2D): 4.4 cm (3.9 cm-5.3 m/s) cm) MV E Vmax: 0.78 m/s ( - ) LVDs (2D): 3.9 cm (2.1 cm-4 MV A Vmax: 0.92 m/s ( - ) cm) MV E/A: 0.85 ( - ) LVPWd (2D): 0.8 cm ( - ) LVEF (BP): 25 % (>=55 %) Continued Measurements: Chambers Valvular Assessment AV/MV Name Value Name Value LADs Lon.1 cm MV E/E' Septal: 29.70 LA Area: 16.0 cm2 MV E/E' Lateral: 17.40 LA Volume: 47 ml Patient: JAKE RAI Study Date: 03/18/2017 Page 1 of 2 05:23 PM LA Volume Index: 30.3 ml/m2 Findings: Left Ventricle: Normal size left ventricle. Moderately to severely reduced systolic function. EF is 25 %. Diastolic dysfunction is present. . Right Ventricle: Normal size right ventricle. Left Atrium: The left atrium is mildly dilated. Right Atrium: The right atrium is normal in size. Mitral Valve: The mitral valve is normal in appearance and function. Mild mitral valve regurgitation is present. Aortic Valve: Mild aortic cusp calcification is noted. No aortic valve stenosis is present. Mild aortic valve regurgitation is present. Tricuspid Valve: The tricuspid valve is normal in appearance and function. Pulmonic Valve: The pulmonic valve is normal in appearance and function. Aorta: The aorta is normal. Pericardium: No pericardial effusion. There is pericardial fat. (No Signature Object) Patient: JAKE RAI Study Date: 03/18/2017 Page 2 of 2 05:23 PM [id number]
[2017-03-18] MEDS: VENLAFAXINE XR 150 MG CAP PO SCH (21:58)
[2017-03-18] MEDS: ROSUVASTATIN CALCIUM 10 MG TAB PO SCH (21:58)
[2017-03-18] MEDS: INSULIN GLARGINE 100 UNITS/ML SYRINGE SC SCH (22:07)
[2017-03-18] MEDS: ACETAMINOPHEN 500 MG TAB PO PRN (23:14)
[2017-03-19 04:36] LABS: PLATELET COUNT 214 10^3/uL (150-400)
--- NOTE | 2017-03-19 08:43 | CPEKG ---
Heart Rate: 89 RR Interval: 674 P-R Interval: 232 QRSD Interval: 132 QT Interval: 404 QTC Interval: 492 P [place]: 72 QRS [place]: -83 T Wave [place]: 80 EKG Severity - ABNORMAL ECG - EKG Impression: SINUS RHYTHM EKG Impression: PAIRED VENTRICULAR PREMATURE COMPLEXES EKG Impression: FIRST DEGREE AV BLOCK EKG Impression: RIGHT BUNDLE BRANCH BLOCK EKG Impression: ANTEROLATERAL INFARCT, RECENT Electronically Signed By: Jamison Llanos 19-Mar-2017 16:05:48
[2017-03-19] MEDS ORDERED: ESCITALOPRAM OXALATE 10 MG TAB PO SCH (09:00)
[2017-03-19] MEDS: CARVEDILOL 6.25 MG TAB PO SCH ×2 (09:51→17:57)
[2017-03-19] MEDS: VENLAFAXINE XR 150 MG CAP PO SCH ×2 (09:51→09:52)
[2017-03-19] MEDS: ANASTROZOLE 1 MG TAB PO SCH (09:52)
[2017-03-19] MEDS: ASPIRIN 81 MG CHEWABLE TAB PO SCH (09:52)
[2017-03-19] MEDS: INSULIN GLARGINE 100 UNITS/ML SYRINGE SC SCH ×2 (09:53→21:26)
[2017-03-19] MEDS: ENOXAPARIN 30 MG/0.3 ML SYR SC SCH (09:53)
[2017-03-19] MEDS: INSULIN LISPRO 100 UNIT/ML SC SCH ×3 (09:54→17:57)
--- NOTE | 2017-03-19 15:00 | ASMTCASEMG ---
Living Arrangements What is your living Answers: With Spouse arrangement? Who do you live with? Type Of Residence What kind of residence do Answers: House you live in? Discharge Plan Comments Coordination Status Comments Notes: Pt is a 81 y/o female admitted for dizziness. Anticipates that pt will d/c independent when medically stable w/ supportive . No therapies ordered at this time. CM available for changes. Plan: Independent Date Signed: 03/19/2017 03:00 PM Electronically Signed By:DARLIN eKyes
--- NOTE | 2017-03-19 15:58 | GCON ---
[f rep st] CONSULTATION DATE OF CONSULTATION: 03/19/2017 REASON FOR CONSULTATION: I have been asked to see the patient for dizziness. HISTORY OF PRESENT ILLNESS: She has a history of bypass surgery last summer. She has an ischemic ca rdiomyopathy with an ejection fraction of 25%, and she comes in dehydrated, lightheaded, dizzy and is evaluated in the emergency room and now admitted. She has no chest pain, jaw pain, arm pain. No dy spnea on exertion. No pleuritic chest pain. No nausea, vomiting, diarrhea, or constipation. No fever, chills, cough. No sputum production. No hot, swollen joints. She has been taking her medicines and doing a very good job of things, and she has lost maybe 25 poun ds with her diuresis. She is followed up by Dr. Morataya. She is scheduled for an AICD and that is going to happen next Thursday. She is wearing a Life Vest. Her cardiac history includes carotid endarterectomy, coronary artery disease, status post bypass, sys tolic heart failure with ejection fraction of 25%. She has hypertension, hyperlipidemia, diabetes me llitus. No family history of premature coronary disease. She does not smoke. She takes her medications very well. She is not obese. She has no history of hyperuricemia. ALLERGIES: Penicillin, propoxyphene, hydrocodone. MEDICATIONS: Listed. SOCIAL HISTORY: She is an active woman. She is here with her daughter right now when I see her. Risa wong does not smoke. Does not drink significant amounts of alcohol. FAMILY HISTORY: No family history of premature coronary disease. No history of unexplained sudden d eath at a young age. REVIEW OF SYSTEMS: A 12-point Review of Systems negative except as noted above and in the old record . PHYSICAL EXAMINATION: VITAL SIGNS: Blood pressure 97/55, heart rate 75, respiratory rate 14. HEENT : Pupils equal and reactive. Mucous membranes of mouth moist. NECK: Supple. CARDIOVASCULAR: S1 and S2. Soft systolic murmur left sternal border. No diastolic murmur. No S3 or S4. No rubs. PUL MONARY: Rhonchi, no rales, wheezing or dullness. ABDOMEN: Soft, nontender, without masses, CVA no tenderness. EXTREMITIES: No edema, inflammation or ulceration. NEUROLOGIC: Cranial nerves 2 throu gh 12 normal. Motor and sensory intact. SKIN: Age-related changes. PSYCH: No obvious anxiety or depression. LAB: Hematocrit 47, white count 10. INR 1.0. Creatinine 1.6, BUN 81, troponin 0.05. The chest x-ray shows cardiomegaly. EKG, first-degree AV block, right bundle branch block. ASSESSMENT AND PLAN: 1. Dizziness. 2. 25-pound weight loss. The patient is over diuresed right now, and she is lightheaded and dizzy. We are going to hold her diuretic at this point in time, watch her closely, hydrate her and follow h er. 3. Coronary artery disease. 4. Ischemic cardiomyopathy. 5. Life Vest. We will try to get her in excellent condition for Dr. Vega to put in that device next w [place]. She is willing to continue with her Life Vest. 6. Diabetes mellitus. 7. Hyperkalemia. 8. There is nothing to suggest she has significant acute ischemia. We will follow along with her tr oponins, but there is nothing clinical at all to suggest that problem for her. 9. I have spoken with her daughter and all her questions have been answered. Thank you very much. /[id number]/MODL
[2017-03-19] MEDS ORDERED: NS 1,000 ML IV SCH (16:00)
--- NOTE | 2017-03-19 18:23 | HOSPPROG ---
Hospitalist Progress Note Assessment/Plan: * Orthostasis due to overdiuresis -holding Entresto and torsemide * Hyperkalemia - improved -decrease potassium supplement * Chronic systolic CHF - EF 25% -life vest - plan for AICD next week * ARF due to hypovolemia * CAD s/p recent CABG * DM II -home insulin * FRANKY - CPAP Subjective: Still dizzy with standing. Orthostatics positive - SBP drops to 70 with standing Objective: Vital Signs Temp Pulse Resp BP Pulse Ox 36.3 C 79 14 102/56 L 95 03/19/17 16:00 03/19/17 16:00 03/19/17 16:00 03/19/17 16:00 03/19/17 16:00 03/18/17 03/19/17 03/20/17 05:59 05:59 05:59 Intake Total 740 Balance 740 PT 14.2 SEC (12.0-15.0) 03/18/17 16:35 INR 1.08 (0.83-1.16) 03/18/17 16:35 CXR viewed, my personal interpretation is - negative head ct - negative Laboratory Tests 03/19/17 03/19/17 00:35 03:57 Creatinine 1.4 H Troponin I 0.050 H 0.052 H - Physical Exam Constitutional: no apparent distress, appears nourished, not in pain Cardiovascular: regular rate and rhythym, no murmur, rub, or gallop Respiratory: no respiratory distress, no rales or rhonchi, clear to auscultation Gastrointestinal: normoactive bowel sounds, soft, non-tender abdomen, no palpable masses Skin: no rashes or abrasions, no fluctuance, no induration Neurologic: AAOx3, sensation intact bilaterally Psychiatric: interacting appropriately, not anxious, not encephalopathic, thought process linear ICD10 Worksheet Patient Problems: Problems Problem Status Onset Cardiomyopathy Acute Dizziness Acute Elevated troponin Acute Hyperkalemia Acute Renal insufficiency Acute Acute blood loss anemia Acute S/P CABG x 4 Acute ~11/03/16 CAD, multiple vessel Chronic Dilated cardiomyopathy Chronic
[2017-03-19] MEDS: ROSUVASTATIN CALCIUM 10 MG TAB PO SCH (21:21)
[2017-03-19] MEDS: ACETAMINOPHEN 500 MG TAB PO PRN (21:25)
[2017-03-20 04:59] VITALS: TEMP 98.1
--- NOTE | 2017-03-20 07:24 | PDMN ---
Medical Necessity Medical necessity: Pt meets INPT criteria per MD as of 03/19/17 and [facility] [place] Cardiology [facility] (orthostasis d/t overdiuresis - SBP drops to 70 with standing, elevated troponin, ARF d/t hypovolemia, ischemic cardiomyopathy with EF 20%, CAD s/p recent CABG, life vest with AICD planned for next week).
[2017-03-20 08:25] VITALS: RESP 17; O2SAT 93
[2017-03-20] MEDS: CARVEDILOL 6.25 MG TAB PO SCH (09:10)
[2017-03-20] MEDS: ANASTROZOLE 1 MG TAB PO SCH (09:10)
[2017-03-20] MEDS: ASPIRIN 81 MG CHEWABLE TAB PO SCH (09:10)
[2017-03-20] MEDS: ENOXAPARIN 30 MG/0.3 ML SYR SC SCH (09:11)
[2017-03-20] MEDS: INSULIN GLARGINE 100 UNITS/ML SYRINGE SC SCH (09:11)
[2017-03-20] MEDS: INSULIN LISPRO 100 UNIT/ML SC SCH ×2 (09:11→13:20)
[2017-03-20 11:06] VITALS: BP 90/48; PULSE 90
--- NOTE | 2017-03-20 11:44 | SOAPPROG ---
SOAP Progress Note Assessment/Plan: Assessment: Coronary artery bypass grafting 2. Ischemic cardiomyopathy 3. History of systolic heart failure chronic 4. Dyslipidemia 5. Life vest. 6. Dehydration She came in with dehydration and that is resolved at this time. She feels much better. She is not lightheaded or dizzy. She has nothing to suggest any ischemia at this time She is not in heart failure. She has lost over 20 lb of water weight on aggressive diuresis. She is coming in for a ICD next Thursday and I would discharge her today if she feels good enough for that and she tells me she does feel good enough for that and she really wants to go home off of any diuretic until she comes in on Thursday morning we can check her electrolytes her wait and see how she is doing. So she is scheduled to come into the hospital for an ICD placement. I reviewed all her questions. I have talked her hospitalist about the discharge. He is going to review things and see what other issues are pending on her. Plan: 03/20/17 11:45 Subjective: She feels much better today. When I saw her she was up and walking with stent with lot of people in the room. She does not feel lightheaded or dizzy. She is being active. She had a great sleep. She has no nausea vomiting No chest pain No shortness of breath. She has had no arrhythmias. Objective: Vital Signs Temp Pulse Resp BP Pulse Ox 36.7 C 90 17 90/48 L 93 03/20/17 08:00 03/20/17 10:59 03/20/17 08:00 03/20/17 10:59 03/20/17 08:00 Laboratory Results 03/20/17 05:27 03/19/17 03/20/17 03/21/17 05:59 05:59 05:59 Intake Total 2190 960 Output Total 1250 500 Balance 940 460 PT 14.2 SEC (12.0-15.0) 03/18/17 16:35 INR 1.08 (0.83-1.16) 03/18/17 16:35 Selected Entries 03/20/17 03/20/17 03/20/17 04:00 08:00 10:59 Heart Rate 81 97 Temperature (C) 36.7 C 36.7 C Blood Pressure 108/57 L 119/77 Blood Pressure 90/48 L [Sitting] Blood Pressure 75/44 L [Standing] Blood Pressure 111/53 L [Supine] Laboratory Tests 03/18/17 03/19/17 03/19/17 16:35 03:57 09:29 WBC 10.12 H 7.50 Hct 47.8 H 46.6 Plt Count 268 214 D Glucose POC Glucose 186 H 03/19/17 03/19/17 03/19/17 12:32 17:33 21:17 WBC Hct Plt Count Glucose POC Glucose 329 H 175 H 212 H 03/20/17 05:27 WBC Hct Plt Count Glucose 134 H POC Glucose Physical Exam - Physical Exam General Appearance: alert (All) Respiratory: rhonchi Abdomen: non-tender Skin: pallor Neuro/Psych: normal mood/affect ICD10 Worksheet Patient Problems: Problems Problem Status Onset Cardiomyopathy Acute Dizziness Acute Elevated troponin Acute Hyperkalemia Acute Renal insufficiency Acute Acute blood loss anemia Acute S/P CABG x 4 Acute ~11/03/16 CAD, multiple vessel Chronic Dilated cardiomyopathy Chronic
--- NOTE | 2017-03-20 16:34 | ASDISCHSUM ---
Discharge Information Plan Status:Home with No Needs Medically Cleared to Leave:03/19/2017 Discharge Date:03/20/2017 01:40 PM CM D/C Disposition: ADT D/C Disposition:Home, Routine, Self-Care Projected Discharge Date:03/20/2017 12:00 AM Transportation at D/C: Discharge Delay Reason: Follow-Up Date:03/20/2017 12:00 AM Discharge Slot: Final Diagnosis: Placement Information Patient Contact Information Contact Name:DEEPA Relationship: Address[address] City:[place] Alternate Phone: [facility]/Zip Code:[place] [address] Email: Financial Information Financial Class:Medicare Advantage Plans Primary Plan Desc:HUMANA GOLD MEDICARE Primary Plan Number:[id number] Secondary Plan Desc: Secondary Plan Number: Assessment Information [facility] Initial CM Assessment Living Arrangements What is your living Answers: With Spouse arrangement? Who do you live with? Type Of Residence What kind of residence do Answers: House you live in? Discharge Plan Comments Coordination Status Comments Notes: Pt is a 81 y/o female admitted for dizziness. Anticipates that pt will d/c independent when medically stable w/ supportive . No therapies ordered at this time. CM available for changes. Plan: Independent Date Signed: 03/19/2017 03:00 PM Electronically Signed By:DARLIN Keyes Intervention Information
--- NOTE | 2017-03-20 16:56 | PDDCSUM ---
Discharge Summary Discharge Summary: DISCHARGE SUMMARY FOLLOW-UP ITEMS: Creatinine BUN and lytes and preoperative lab values next Thursday DATE OF ADMISSION: 03/18/2017 DATE OF DISCHARGE: 03/20/2017 DISCHARGE DIAGNOSES: 1. Orthostatic hypotension 2. Acute hyperkalemia 3. Chronic systolic congestive heart failure 4. Acute kidney injury 5. Chronic coronary artery disease CONSULTATIONS: Cardiology PROCEDURES / IMAGING: None CHIEF COMPLAINT: Acute dizziness SUBJECTIVE: Patient is feeling well at time of discharge, she continues to experience some mild positional dizziness which does dissipate with resting PHYSICAL EXAM ON DISCHARGE: Systolic blood pressure is 110-120, heart rate is 80-90, afebrile overnight, satting well on room air, positive orthostatics, alert awake oriented x3, no apparent distress, lungs are clear to auscultation bilaterally, heart rhythm is regular, with 2/6 systolic murmur at the sternum and apex LABS ON DISCHARGE: Creatinine 0.9, potassium 4.1, serum sodium 144, troponin 0.05 HOSPITAL COURSE BY PROBLEM: The patient presented with acute, symptomatic orthostatic hypotension in the setting of over-diuresis with and Entresto and torsemide. This resulted in the patient's symptoms of persistent dizziness, and resulted medically in acute kidney injury evidenced by serum creatinine level of 1.6. The patient received IV normal saline, and her serum creatinine level improved. We held her home dosages of diuretics as well as her potassium supplement, given her hyperkalemia. The patient's orthostatic hypotension continued throughout her hospitalization, but it became less symptomatic, and her symptoms were able to be controlled with more controlled levels of activity. The patient worked with physical and occupational therapy, it is recommended that she utilize a walker at home for safety. The patient was able to safely ambulate with this walker around the unit without experiencing symptoms prevent her from completing activities of daily living. The patient was seen in consultation by the cardiology service, and it was recommended that the patient be discharged home off of her diuretics, with reconsideration of re-initiation after her AICD is placed next Thursday. The patient will have repeat labs on Thursday prior to her procedure. Of note, the patient does have chronic coronary artery disease and her troponin was 0.05, which is most likely not indicative of acute ischemia , but rather chronic coronary artery disease. She is continued on her home medications for this. She also has chronic systolic congestive heart failure, and did not demonstrate any evidence of acute exacerbation while her diuretics are being held. DISCHARGE MEDICATIONS: Please see official discharge medication reconciliation sheet in chart , continue home medications with discontinuation of potassium, torsemide, and Entresto. DISCHARGE INSTRUCTIONS: Please follow up for labs next Thursday, then you procedure with Dr. Vega on Thursday TIME SPENT: Greater than 30 minutes were spent on direct patient care, as well as discharge planning and preparation.
== END 2017-03-20 13:40 | disposition home or self-care (01) | DRG 312 ==
LOC: F2W 18:57 → OBSVTOIN 03-19 15:55
PROVIDERS: ADMIT Student in an Organized Health Care Education/Training Program; ATTEND Student in an Organized Health Care Education/Training Program
DX: I95.2 Hypotension due to drugs (principal); I11.0 Hypertensive heart disease with heart failure; I50.22 Chronic systolic (congestive) heart failure; N17.9 Acute kidney failure, unspecified; E87.5 Hyperkalemia; I25.5 Ischemic cardiomyopathy; I25.10 Atherosclerotic heart disease of native coronary artery without angina pectoris; T46.905A Adverse effect of unspecified agents primarily affecting the cardiovascular system, initial encounter; G47.33 Obstructive sleep apnea (adult) (pediatric); E11.9 Type 2 diabetes mellitus without complications; K21.9 Gastro-esophageal reflux disease without esophagitis; Z85.3 Personal history of malignant neoplasm of breast; Z95.1 Presence of aortocoronary bypass graft
CPT/HCPCS: G0378; J1650; J1815

== ENCOUNTER 2017-03-25 06:56 | Observation (INO) | payer OTHER ==
[2017-03-25] MEDS ORDERED: BACITRACIN IRRIGATION/NS 50,000 UNITS/1,000 ML BTL IRR ONE (06:58)
[2017-03-25] MEDS ORDERED: DIAZEPAM 5 MG TAB PO ONE (06:58)
[2017-03-25] MEDS ORDERED: NS 1,000 ML IV ONE (06:58)
[2017-03-25] MEDS ORDERED: diphenhydrAMINE 25 MG CAP PO ONE (06:58)
--- NOTE | 2017-03-25 07:26 | CPEKG ---
Heart Rate: 101 RR Interval: 594 P-R Interval: 224 QRSD Interval: 126 QT Interval: 388 QTC Interval: 503 P [place]: 94 QRS [place]: -83 T Wave [place]: 82 EKG Severity - ABNORMAL ECG - EKG Impression: SINUS TACHYCARDIA EKG Impression: PAIRED VENTRICULAR PREMATURE COMPLEXES EKG Impression: FIRST DEGREE AV BLOCK EKG Impression: RIGHT BUNDLE BRANCH BLOCK EKG Impression: INFERIOR INFARCT, AGE INDETERMINATE EKG Impression: ANTERIOR INFARCT, AGE INDETERMINATE Electronically Signed By: Alberto Vega 25-Mar-2017 08:50:58
[2017-03-25] MEDS ORDERED: VANCOMYCIN HCL/NORMAL SALINE 250 ML IV ONE (07:30)
[2017-03-25 07:54] LABS: PLATELET COUNT 135 10^3/uL (150-400)
[2017-03-25 08:01] LABS: INR 1.04 (0.83-1.16); PROTIME(PATIENT) 13.8 SEC (12.0-15.0)
--- NOTE | 2017-03-25 08:13 | PDANEPAE ---
ANE History of Present Illness here for BIV AICD ischemic cardiomyopathy EF 25% ANE Past Medical History - Cardiovascular History Hx Hypertension: Yes Hx Arrhythmias: No Hx Chest Pain: Yes Hx Coronary Artery / Peripheral Vascular Disease: No Hx CHF / Valvular Disease: No Hx Palpitations: No Cardiovascular History Comment: rhuematic fever as child-benign heart murmur. - Pulmonary History Hx COPD: No Hx Asthma/Reactive Airway Disease: No Hx Recent Upper Respiratory Infection: No Hx Oxygen in Use at Home: No Hx Sleep Apnea: Yes Pulmonary History Comment: sleep apnea-CPAP - Neurologic History Hx Cerebrovascular Accident: No Hx Seizures: No Hx Dementia: No - Endocrine History Hx Diabetes: Yes Endocrine History Comment: Type 2-insulin&oral meds - Renal History Hx Renal Disorders: No - Liver History Hx Hepatic Disorders: No - Neurological & Psychiatric Hx Hx Neurological and Psychiatric Disorders: Yes Neurological / Psychiatric History Comment: Anxiety - Cancer History Hx Cancer: Yes Cancer History Comment: R breast. - Congenital Disorder History Hx Congenital Disorders: No - GI History Hx Gastrointestinal Disorders: Yes Gastrointestinal History Comment: GERD-med. - Other Health History Other Health History: arthritis in spine, hands. R knee weakness due to diabetes. 15 yo FX Cspine from AA chronic HAs since then - Chronic Pain History Chronic Pain: Yes (daily MCKEON.) - Surgical History Prior Surgeries: 2011-L carotid endartorectomy. 2006-lypoma removed. 1982-GB& appi removed. 1980-partial hyterectomy. 2010-bilateral cataracts. ANE Review of Systems Review of systems is: negative Review of Systems: - Exercise capacity Exercise capacity: <4 METS ANE Patient History - Allergies Allergies/Adverse Reactions: Penicillins Allergy (Intermediate, Verified 03/18/17 15:51) Hives propoxyphene Allergy (Unknown, Verified 03/20/17 09:09) Vomiting hydrocodone Allergy (Verified 03/18/17 15:51) Vomiting - Home Medications Home medications: home medication list seen and reviewed Home Medications: Cholecalciferol Vit D3 [Vitamin D3 (*)] 2,000 units PO DAILY 09/29/13 [Last Taken 03/24/17] Rosuvastatin Calcium [Crestor] 10 mg PO HS 09/29/13 [Last Taken 03/24/17] Anastrozole [Arimidex 1 mg (*)] 1 mg PO DAILY 10/31/16 [Last Taken 03/24/17] Venlafaxine HCl [Venlafaxine HCl ER] 150 mg PO BID 10/31/16 [Last Taken 21:00] Acetaminophen [Tylenol ES 500 mg (*)] 500 mg PO Q6 PRN 03/18/17 [Last Taken 12/01] Carvedilol [Coreg (*)] 6.25 mg PO BID 03/18/17 [Last Taken 03/24/17 21:00] Herbals/Supplements -Info Only 1 ea PO DAILY 03/18/17 [Last Taken 03/18/17] Insulin Glargine [Lantus 100 UNITS/ML (*)] 20 units SC BID 03/18/17 [Last Taken 03/24/17 21:00] Insulin Lispro [humALOG LISPRO 100 units/ml (*)] 0 unit SC TIDMEAL 03/25/17 [ Last Taken 03/24/17 18:00 20 units] - NPO status NPO Status: no food or drink >8 hours - Smoking Hx Smoking Status: Never smoked - Family Anes Hx Family Hx Anesthesia Complications: son difficulty awakening ANE Labs/Vital Signs - Labs Result Diagrams: 03/25/17 07:45 03/25/17 07:45 - Vital Signs Vital Signs: reviewed preoperatively; see RN documention for details Height: 157 cm Weight: 63.1 kg ANE Physical Exam - Airway Neck exam: FROM Mallampati Score: Class 1 Mouth exam: normal dental/mouth exam - Pulmonary Pulmonary: no respiratory distress - Cardiovascular Cardiovascular: regular rate and rhythym - ASA Status ASA Status: IV ANE Anesthesia Plan Anesthesia Plan: general endotracheal anesthesia
[2017-03-25] MEDS ORDERED: MIDAZOLAM 2 MG/2 ML VIAL IVP ONE (08:28)
[2017-03-25] MEDS ORDERED: LIDOCAINE 1% 300 MG/30 ML SDV ONE (08:28)
[2017-03-25] MEDS ORDERED: IOPAMIDOL (ISOVUE-300) 100 ML BTL ONE (08:29)
[2017-03-25] MEDS ORDERED: BUPIVACAINE 0.5% 30 ML SDV ONE (08:29)
[2017-03-25] MEDS ORDERED: fentaNYL 100 MCG/2 ML INJ ONE (08:33)
[2017-03-25] MEDS ORDERED: PROPOFOL 200 MG/20 ML VIAL ONE (08:35)
--- NOTE | 2017-03-25 08:50 | PDHPUP ---
History & Physical Update H&P update statement: This history and physical update is based on an assessment of the patient which was completed after admission or registration (within 24 hours), but prior to the surgery/procedure. H&P update: H&P reviewed & patient examined, no change in patient's condition since H&P completed
[2017-03-25] MEDS ORDERED: DEXMEDETOMIDINE/NS 4MCG/ML 50 ML BTL IV ONE (09:15)
[2017-03-25] MEDS ORDERED: SUGAMMADEX SODIUM 200 MG/2 ML VIAL IVP ONE (11:03)
--- NOTE | 2017-03-25 11:28 | EPPROC ---
Electrophysiology Procedure Note: PROCEDURE PERFORMED: 1. Implantation of an A-BiV Implantable Cardioverter Defibrillator 2. Subclavian vein angiography 3. Fluoroscopy INDICATION: Ischemic cardiomyopathy NYHA III QRS duration >120 ms PROCEDURE NOTE: Patient presented to the cardiac catheterization laboratory in a fasting, post absorptive state. Dr. Jeanna Lobato administered general anesthesia. The left infraclavicular area was prepped and draped in the usual sterile fashion. Lidocaine plus bupivacaine was used for local anesthesia. Left subclavian venography was performed by injection of iodinated contrast into the left antecubital vein. This was done to assure patency of the vein and also to assess for any anatomical aberrations. Using a combination of blunt and sharp dissection and electrocautery, the dissection was carried down to the prepectoral fascia. A pocket was made in this anatomical plane. All bleeding was controlled with electrocautery. The pocket was packed with gauze soaked in antibiotic solution. Fluoroscopy was utilized during the entire procedure for venous access and placement of the leads Using a direct stick technique the left extra thoracic axillary vein was accessed with 3 sticks using the modified Seldinger technique. Placement of the guide wires into the venous system was confirmed by low pressure blood return and also by visualizing the guide wires advancing into the inferior vena cava. A purse string suture was applied around the guide wires. Two #7 Georgian sheaths were advanced under fluoroscopic guidance over the guide wires. An active fixation ventricular ICD lead was advanced into the right ventricular apex and screwed in place. An active fixation atrial lead was advanced into the right atrial appendage and screwed in place. The peel away sheaths were removed. Pacing thresholds, sensing parameters and lead impedances were measured. There was no diaphragmatic stimulation at maximum output. The leads were sutured to the prepectoral fascia with 3 nonabsorbable sutures. A 9 Georgian sheath was advanced over the guide wire into the subclavian vein. Using a [employer] delivery system the coronary sinus ostium was engaged. Occlusion retrograde coronary sinus angiography was performed in 2 views. A coronary sinus quadrapolar lead was advanced into the coronary sinus. An angioplasty wire was advanced through the lead and advanced into the mid portion of the lateral branch of the coronary sinus. The lead was advanced over the angioplasty wire. Pacing threshold, sensing and impedance was determined. There was no diaphragmatic stimulation at maximum output. The delivery system and the 9 Fr sheath were peeled away. Again, pacing threshold, sensing and impedance was determined. There was no diaphragmatic stimulation at maximum output. The CS lead was secured to the prepectoral fascia with 3 nonabsorbable sutures. Pacing threshold and sensing parameters of the RA, RV and LV leads were checked again. The gauze packing was removed from the ICD pocket. The pocket was again inspected for any bleeding. The leads were attached to the pacemaker securely. The ICD was inserted into the pocket and secured in place with a nonabsorbable suture. Fluoroscopy was performed in SHERMAN and ARABIC planes to verify right sided placement of the leads. Also fluoroscopy of the pacemaker pocket was performed. Defibrillation threshold testing was not performed. The ICD pocket was closed in 3 layers with absorbable monocryl sutures and haresh. Appropriate dressing was applied. The patient left the cardiac catheterization laboratory in stable condition. Defibrillation testing: Not done Serial Numbers: 1. Device [facility] Quadra Assura CRTD SN [id number] 2. Atrial Lead [facility] Tendril 2088TC [id number] 3. Right Ventricular Lead M Durata 7122Q 52 cm [id number] 4. Left Ventricular Lead SJM Quartet 1457 75 cm SN [id number] Stimulation Thresholds & Impedance Measurements: 1. Atrial Lead 1.2 V 0.5 ms 2.9 mA P 2.6 mV 406 ohm 2. Right Ventricular Lead R 13 mV 0.5 V 0.5 ms 0.8 mA 527 ohm 3. Left Ventricular Lead R 10.3 mV 2.6 V 0.5 ms 6.7 mA 391 ohm Mendel Pacing Parameters: 1. Pacing mode DDDR 2. Lower rate 60 ppm 3. Upper rate 130 ppm+ Tachycardia therapy parameters: VF zone : Detection 214 bpm First therapy 40 Joule Subsequent therapies 40 Joule VT zone : Detection 170 bpm ATP x 3 Second therapy 40 Joule Subsequent therapies 40 Joule VT monitor zone 150 bpm Patient Problems: Problems Problem Status Onset Elevated troponin Acute Dizziness Acute Hyperkalemia Acute Renal insufficiency Acute Cardiomyopathy Acute Acute blood loss anemia Acute S/P CABG x 4 Acute ~11/03/16 Dilated cardiomyopathy Chronic CAD, multiple vessel Chronic
--- NOTE | 2017-03-25 11:46 | POSTANESTH ---
Post Anesthetic Evaluation Cardiovascular Status: Normal, Stable Respiratory Status: Normal, Stable Level of Consciousness/Mental Status: Can Participate in Eval Pain Control: Adequate, Prn Tx Ordered Nausea/Vomiting Control: Adequate, Prn Tx Ordered Complications Possibly Related to Anesthesia: None Noted
--- NOTE | 2017-03-25 11:47 | CPEKG ---
Heart Rate: 94 RR Interval: 638 P-R Interval: 172 QRSD Interval: 108 QT Interval: 396 QTC Interval: 496 P [place]: 94 QRS [place]: 231 T Wave [place]: 32 EKG Severity - ABNORMAL ECG - EKG Impression: ATRIAL-SENSED VENTRICULAR-PACED COMPLEXES Electronically Signed By: Alberto Vega 25-Mar-2017 12:32:59
[2017-03-25] MEDS: ACETAMINOPHEN 500 MG TAB PO PRN ×2 (12:05→17:14)
[2017-03-25] MEDS ORDERED: INSULIN LISPRO 100 UNIT/ML SC ONE (13:00)
[2017-03-25] MEDS: INSULIN LISPRO 100 UNIT/ML SC SCH ×2 (13:54→18:20)
[2017-03-25] MEDS: CARVEDILOL 6.25 MG TAB PO SCH (18:19)
[2017-03-25] MEDS ORDERED: ROSUVASTATIN CALCIUM 10 MG TAB PO SCH (21:00)
[2017-03-25] MEDS ORDERED: CARVEDILOL 6.25 MG TAB PO SCH (21:00)
[2017-03-25] MEDS: VENLAFAXINE XR 150 MG CAP PO SCH (21:53)
[2017-03-25] MEDS: INSULIN GLARGINE 100 UNITS/ML SYRINGE SC SCH (22:02)
[2017-03-26 03:54] VITALS: RESP 12
[2017-03-26 04:36] LABS: PLATELET COUNT 108 10^3/uL (150-400)
[2017-03-26 07:22] VITALS: BP 125/81; PULSE 96; TEMP 99.1
--- NOTE | 2017-03-26 08:54 | CPEKG ---
Heart Rate: 89 RR Interval: 674 P-R Interval: 248 QRSD Interval: 134 QT Interval: 392 QTC Interval: 477 P [place]: 0 QRS [place]: -48 T Wave [place]: 155 EKG Severity - ABNORMAL ECG - EKG Impression: VENTRICULAR-PACED COMPLEXES EKG Impression: FIRST DEGREE AV BLOCK EKG Impression: PVCs Electronically Signed By: Hernandez Morataya 26-Mar-2017 15:23:44
[2017-03-26] MEDS ORDERED: ASPIRIN 81 MG CHEWABLE TAB PO SCH (09:00)
[2017-03-26] MEDS ORDERED: CHOLECALCIFEROL VIT D3 1,000 UNITS TAB PO SCH (09:00)
[2017-03-26] MEDS ORDERED: ANASTROZOLE 1 MG TAB PO SCH (09:00)
[2017-03-26] MEDS: INSULIN LISPRO 100 UNIT/ML SC SCH (09:28)
[2017-03-26] MEDS: CARVEDILOL 6.25 MG TAB PO SCH (09:33)
[2017-03-26] MEDS: INSULIN GLARGINE 100 UNITS/ML SYRINGE SC SCH (09:34)
[2017-03-26] MEDS: VENLAFAXINE XR 150 MG CAP PO SCH (09:34)
--- NOTE | 2017-03-26 10:37 | ASMTCASEMG ---
Living Arrangements What is your living Answers: With Spouse arrangement? Who do you live with? Type Of Residence What kind of residence do Answers: House you live in? Discharge Plan Comments Coordination Status Comments Notes: Pt is a 81 y/o female admitted for ischemic cardiomyopathy. Pt was recently here at [facility] on 03/19/17 for dizziness. Pt will most likely d/c independent without any needs. No therapies have been ordered at this time. CM available for changes. Plan: Independent Date Signed: 03/26/2017 10:36 AM Electronically Signed By:DARLIN Keyes
[2017-03-26 10:38] VITALS: O2SAT 96
--- NOTE | 2017-03-26 14:34 | ASDISCHSUM ---
Discharge Information Plan Status:Home with No Needs Medically Cleared to Leave:03/25/2017 Discharge Date:03/26/2017 11:20 AM CM D/C Disposition: ADT D/C Disposition:Home, Routine, Self-Care Projected Discharge Date:03/26/2017 12:00 AM Transportation at D/C: Discharge Delay Reason: Follow-Up Date:03/26/2017 12:00 AM Discharge Slot: Final Diagnosis: Placement Information Patient Contact Information Contact Name:DEEPA Relationship: [address] City:[place] Alternate Phone: [facility]/Zip Code:[place] [address] Email: Financial Information Financial Class:Medicare Advantage Plans Primary Plan Desc:HUMANA GOLD MEDICARE Primary Plan Number:[id number] Secondary Plan Desc: Secondary Plan Number: Assessment Information [facility] Initial CM Assessment Living Arrangements What is your living Answers: With Spouse arrangement? Who do you live with? Type Of Residence What kind of residence do Answers: House you live in? Discharge Plan Comments Coordination Status Comments Notes: Pt is a 81 y/o female admitted for ischemic cardiomyopathy. Pt was recently here at [facility] on 03/19/17 for dizziness. Pt will most likely d/c independent without any needs. No therapies have been ordered at this time. CM available for changes. Plan: Independent Date Signed: 03/26/2017 10:36 AM Electronically Signed By:DARLIN Keyes Intervention Information
--- NOTE | 2017-03-27 00:36 | GDS ---
[f rep st] DISCHARGE SUMMARY DISCHARGE DIAGNOSIS: 1. Ischemic cardiomyopathy. 2. [place] Heart [employer] Class 3. 3. QRS greater than 120 milliseconds. 4. Status post implant of biventricular defibrillator. 5. Diabetes BRIEF HISTORY: This is an 81-year-old woman who is a patient of Dr. Broussard with a history of ischemic cardiomyopathy, [place] Heart Association class 3 symptoms, QRS complex greater than 120 msec, diabetes, who was admitted for a biventricular ICD implant. Last week, she was admitted to the hospital for orthostatic hypotension, acute hyperkalemia, and acute kidney injury. All of her diuretics and Entresto were stopped at that time. She reports that she has gained about 5 pounds since that. She has had slight increase in ankle edema. No increased shortness of breath, however. HOSPITAL COURSE: Dr. Vega implanted a [employer] Quadra Assura biventricular ICD. Mode is DDDR, base rate of 60 beats per minute, upper tracking rate is 130 beats per minute. Ventricular tachycardia detection is at 171 beats per minute. P waves are 0.6 mV, RA capture is 0.25 V at 0.5 msec. RA lead impedance is 440 ohms. R-waves are 10.4 mV, RV capture is 0.5 at 0.5 msec. RV lead impedance is 540 ohms. LV capture threshold is 2.25 V at 1 msec and LV lead impedance is 380 ohms. She had a moderate amount of discomfort at the pacemaker pocket site overnight; however, that has mostly resolved. She was putting ice packs on it during the night, which helped. She has not had any bleeding at the site. She denies any chest pain, pressure, or shortness of breath. TESTING DONE: Chest x-ray demonstrated moderate cardiomegaly, pulmonary vasculature was not significantly engorged, pacemaker leads are stable and no pneumothorax. LAB WORK: WBC is 9.69, hemoglobin 11.4, hematocrit 35.5, platelets 108. Sodium 145, potassium 4.6, chloride 111, bicarb 21, BUN 15, creatinine 0.7, glucose is 176. Of note, potassium at the time of admission was 5.4. PHYSICAL EXAM: VITAL SIGNS: Blood pressure is 125/81, pulse is 96, respirations 12, temperature 37.3, O2 saturation 94% on 2 L. GENERAL: She is alert and oriented, in no acute distress, lying in bed. CHEST: Pacemaker site in the left upper pectoral region has a gauze and OpSite dressing that is dry and intact without any blood on the gauze. She does have an ice pack on her pacemaker site. There is mild swelling of the pocket and mild ecchymosis at the lateral edge of the OpSite. CARDIAC: Regular rate, rhythm without murmur, rub, or gallop. LUNGS: She has crackles in her left base. ABDOMEN: Soft and nontender. EXTREMITIES: Warm. No discoloration. There is trace ankle edema. DISCHARGE MEDICATIONS: Please see discharge medication reconciliation. Of note , Demadex was started at a low dose of 20 mg p.o. daily. She had previously been on 60 mg a day. DISCHARGE ACTIVITY INSTRUCTIONS: Reviewed post pacemaker implant activity restrictions verbally, and she was given written instructions at the time of discharge. FOLLOWUP: She has a followup scheduled for pacemaker and wound check on April 01 at [facility], and a followup with Dr. Vega on April 22, and a followup with Dr. Morataya on April 01 at 1:15. /[id number]/MODL MTDD
== END 2017-03-26 11:20 | disposition home or self-care (01) ==
LOC: FCATH 06:56 → F2W 11:28
PROVIDERS: ADMIT Internal Medicine Cardiovascular Disease; ATTEND Internal Medicine Cardiovascular Disease
DX: I25.5 Ischemic cardiomyopathy (principal); I50.22 Chronic systolic (congestive) heart failure; I11.0 Hypertensive heart disease with heart failure; I45.10 Unspecified right bundle-branch block; R53.83 Other fatigue; R06.02 Shortness of breath; R01.1 Cardiac murmur, unspecified; I25.10 Atherosclerotic heart disease of native coronary artery without angina pectoris; G47.33 Obstructive sleep apnea (adult) (pediatric); E11.9 Type 2 diabetes mellitus without complications; K21.9 Gastro-esophageal reflux disease without esophagitis; E78.5 Hyperlipidemia, unspecified; F41.9 Anxiety disorder, unspecified; I77.9 Disorder of arteries and arterioles, unspecified; Z85.3 Personal history of malignant neoplasm of breast; Z95.1 Presence of aortocoronary bypass graft; Z88.0 Allergy status to penicillin
CPT/HCPCS: 33225; 33249; 71045; 71046; 93005; C1769; C1777; C1882; C1898; C1900; G0378; J1815; J2250; J2704; J3010; J3370; Q9967

== ENCOUNTER → 2017-04-07 | Outpatient (CLI) | payer OTHER | LOC: FIMAGING 12:14 | PROVIDERS: ATTEND Internal Medicine Cardiovascular Disease | DX: Z45.018 Encounter for adjustment and management of other part of cardiac pacemaker (principal); M25.519 Pain in unspecified shoulder; M79.603 Pain in arm, unspecified; I51.7 Cardiomegaly; Z95.810 Presence of automatic (implantable) cardiac defibrillator ==

== ENCOUNTER → 2017-06-01 | Outpatient (CLI) | payer OTHER | LOC: CIMAGING 16:40 | PROVIDERS: ATTEND Family Medicine | DX: M25.551 Pain in right hip (principal) | CPT/HCPCS: 73502-PO ==

== ENCOUNTER 2017-08-27 21:12 | Inpatient (IN) | payer OTHER ==
--- NOTE | 2017-08-27 21:53 | EDPHY ---
H & P Stated Complaint: NAUSEA/[id number]/UPPER BACK,SIDE PAINX5 DAYS Time Seen by Provider: 08/27/17 21:53 HPI/ROS: HPI CHIEF COMPLAINT: Nausea vomiting diarrhea HISTORY OF PRESENT ILLNESS: Patient 81-year-old female she has a history of coronary artery disease and ischemic cardiomyopathy she presents emergency room with multiple complaints including nausea, dry heaving, watery diarrhea that is not black, pain in her right back that then radiates down into her left lower abdomen. She also endorses shortness of breath she denies chest pain. She states she has had symptoms for the past 2 days. She also complains of global weakness and fatigue. Denies fever. Denies productive cough, denies hematemesis or hematochezia. Denies melena. Additionally complains of abdominal bloating. Past Medical History: CHF, ischemic cardiomyopathy, coronary artery disease, diabetes, hypotension Past Surgical History: Defibrillator, CABG Social History: Denies daily use of drugs alcohol tobacco. Family History: Noncontributory ROS REVIEW OF SYSTEMS: Review of systems limited due to patient being a poor historian. Exam Constitutional nontoxic. triage nursing summary reviewed, vital signs reviewed , awake/alert. Eyes normal conjunctivae and sclera, EOMI, PERRLA. HENT normal inspection, atraumatic, moist mucus membranes, no epistaxis, neck supple/ no meningismus, no raccoon eyes. Respiratory clear to auscultation bilaterally, normal breath sounds, no respiratory distress, no wheezing. Cardiovascular rate normal, regular rhythm, no murmur, no edema, distal pulses normal. Gastrointestinal soft, non-tender, no rebound, no guarding, normal bowel sounds, no distension, no pulsatile mass. Genitourinary no CVA tenderness. Musculoskeletal no midline vertebral tenderness, full range of motion, no calf swelling, no tenderness of extremities, no meningismus, good pulses, neurovascularly intact. Skin pink, warm, & dry, no rash, skin atraumatic. Neurologic awake, alert and oriented x 3, AAOx3, moves all 4 extremities equally, motor intact, sensory intact, CN II-XII intact, normal cerebellar, normal vision, normal speech. Psychiatric normal mood/affect. Heme/Lymph/Immune no lymphadenopathy. Differential diagnosis includes but is not limited to: ACS, atypical chest pain , pneumothorax, pneumonia, pulmonary embolism, aortic dissection, congestive heart failure, tumor, musculoskeletal pain, esophageal pain, GERD, peptic ulcer disease, pancreatitis Differential diagnosis includes but is not limited to and in no particular order: Bowel obstruction, appendicitis, gallbladder disease, diverticulitis, colitis, enteritis, perforated viscus, gastritis, GERD, esophagitis, urinary tract infection, pyelonephritis, kidney stones Medical Decision Making: Plan for this patient IV establishment full cardiac monitor technician obtain EKG, point care troponin, blood pressure both arms, IV fluid bolus with 1 L normal saline, IV Phenergan for nausea most likely proceed with CT scan chest abdomen pelvis to rule out aortic dissection given back pain radiating into abdomen and history of vascular disease. Re-evaluation: EKG interpretation by me on record in [facility] system. Impression time of EKG 2201, this is a atrially sensed rhythm with ventricularly paced rhythm. Right bundle-branch block present this is a paced rhythm. Similar to previous EKG dated 03/25/2017. 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 Otherwise no significant inflammatory process seen on the chest abdomen pelvis scan. No evidence of aortic dissection. Does have significant atherosclerotic disease of her abdominal blood vessels. Given this patient having infarct of her left kidney she will need to be admitted the hospital this may be causing her left-sided abdominal left flank pain. 1206AM: I spoke with Nephrology Dr. Hansen discussed case about the left kidney infarct. Recommend anticoagulation due to the acute nature of this of left flank pain and kidney infarct. She has no contraindications to anticoagulation. I have ordered her 1 make per kg of Lovenox. Additionally she is being hydrated with IV fluids for dehydration, in the setting of diarrhea and UTI. Urine cultures been sent, 1 g Rocephin has been ordered. Additionally I have consulted the hospitalist service Dr. Garcia agrees to admit the patient. Final diagnosis patient be admitted for dehydration, diarrhea, UTI, left kidney infarct Source: Patient - Personal History Current Tetanus Diphtheria and Acellular Pertussis (TDAP): Yes Tetanus Vaccine Date: 12/2008 - Medical/Surgical History Hx Asthma: No Hx Chronic Respiratory Disease: Yes Hx Diabetes: Yes Hx Cardiac Disease: Yes Hx Renal Disease: No Hx Cirrhosis: No Hx Alcoholism: No Hx HIV/AIDS: No Hx Splenectomy or Spleen Trauma: No Other PMH: Carotic Endarectomy, DM2, FRANKY with cPap, HTN, CAD, CABG 4, CHF w/EF v25%, GERD, breast ca, afib, Depression, OHS, 10/30 LIFE VEST, Pacer 04/02, FRANKY w / CPAP, Meniere Disease, Iron Defiency, Cataracts, Hysterectomy - Social History Smoking Status: Never smoked Constitutional: Initial Vital Signs Temperature (C) 36.4 C 08/27/17 21:43 Heart Rate 82 08/27/17 21:43 Respiratory Rate 16 08/27/17 21:43 Blood Pressure 131/77 H 08/27/17 21:43 O2 Sat (%) 94 08/27/17 21:43 O2 Delivery Mode Nasal Cannula O2 (L/minute) 2 Allergies/Adverse Reactions: Penicillins Allergy (Intermediate, Verified 03/18/17 15:51) Hives propoxyphene Allergy (Unknown, Verified 03/20/17 09:09) Vomiting escitalopram [From Lexapro] Allergy (Verified 08/27/17 21:40) hydrocodone Allergy (Verified 03/18/17 15:51) Vomiting Home Medications: Medication Instructions Recorded Cholecalciferol Vit D3 [Vitamin D3 2,000 units PO DAILY 09/29/13 (*)] Rosuvastatin Calcium [Crestor] 10 mg PO HS 09/29/13 Anastrozole [Arimidex 1 mg (*)] 1 mg PO DAILY 10/31/16 Venlafaxine HCl [Venlafaxine HCl 150 mg PO BID 10/31/16 ER] Aspirin [Aspirin 81mg (*)] 81 mg PO DAILY #0 tab.chew 11/15/16 Acetaminophen [Tylenol ES 500 mg 500 mg PO Q6 PRN 03/18/17 (*)] Carvedilol [Coreg (*)] 6.25 mg PO BID 03/18/17 Herbals/Supplements -Info Only 1 ea PO DAILY 03/18/17 Insulin Glargine [Lantus 100 20 units SC BID 03/18/17 UNITS/ML (*)] Insulin Lispro [humALOG LISPRO 100 0 unit SC TIDMEAL 03/25/17 units/ml (*)] Torsemide [Demadex] 20 mg PO DAILY #30 tablet 03/26/17 Medical Decision Making - Diagnostics Imaging Results: Imaging Impressions Abdomen CT 08/27/17 22:01 Impression: 1. Evidence of acute renal infarct in the inferior pole left kidney. 2. Evidence of extensive atherosclerotic change in the abdominal vasculature. No evidence for aortic aneurysm or dissection. 3. Other chronic findings as above. Results called and discussed with Tiburcio Anne MD at 08/27/2017 23:28. Chest CT 08/27/17 22:01 Impression: Moderate-sized hiatal hernia. Cardiomegaly with evidence of prior open-heart surgery with cardiac pacer and 2 pacing leads are stable from prior chest x-ray. Other chronic findings as above. Results called and discussed with Tiburcio Anne MD at 08/27/2017 23:24. Chest X-Ray 08/27/17 22:05 Impression: Stable cardiomegaly. Question mild atelectasis left lung base and minimal right pleural effusion. - Data Points Laboratory Results: Laboratory Results 08/27/17 22:01 08/27/17 22:01 08/27/17 08/27/17 08/27/17 23:10 22:08 22:07 WBC RBC Hgb Hct MCV MCH MCHC RDW Plt Count MPV Neut % (Auto) Lymph % (Auto) [place] % (Auto) Eos % (Auto) Baso % (Auto) Nucleat RBC Rel Count Absolute Neuts (auto) Absolute Lymphs (auto) Absolute Monos (auto) Absolute Eos (auto) Absolute Basos (auto) Absolute Nucleated RBC Immature Gran % Immature Gran # PT INR APTT VBG Lactic Acid Sodium Potassium Chloride Carbon Dioxide Anion Gap BUN Creatinine Estimated GFR Glucose POC Lactic Acid Buddy 1.1 mmol/L mmol/L (0.7-2.1) Calcium Total Bilirubin Conjugated Bilirubin Unconjugated Bilirubin AST ALT Alkaline Phosphatase POC Troponin I 0.04 ng/mL ng/mL (0.00-0.08) Total Protein Albumin Lipase Urine Color YELLOW Urine Appearance HAZY Urine pH 5.0 (5.0-7.5) Ur Specific [place] > 1.035 H (1.002-1.030) Urine Protein NEGATIVE (NEGATIVE) Urine Ketones NEGATIVE (NEGATIVE) Urine Blood NEGATIVE (NEGATIVE) Urine Nitrate NEGATIVE (NEGATIVE) Urine Bilirubin NEGATIVE (NEGATIVE) Urine Urobilinogen 4.0 EU H EU (0.2-1.0) Ur Leukocyte Esterase 3+ H (NEGATIVE) Urine RBC 15-25 /hpf H /hpf (0-3) Urine WBC 50-182 /hpf H /hpf (0-3) Ur Epithelial Cells TRACE /lpf /lpf (NONE-1+) Urine Mucus TRACE /lpf /lpf (NONE-1+) Urine Glucose NEGATIVE (NEGATIVE) 08/27/17 08/27/17 08/27/17 22:01 22:01 22:01 WBC 11.35 10^3/uL H 10^3/uL (3.80-9.50) RBC 3.94 10^6/uL L 10^6/uL (4.18-5.33) Hgb 12.4 g/dL L g/dL (12.6-16.3) Hct 38.5 % % (38.0-47.0) MCV 97.7 fL fL (81.5-99.8) MCH 31.5 pg pg (27.9-34.1) MCHC 32.2 g/dL L g/dL (32.4-36.7) RDW 14.4 % % (11.5-15.2) Plt Count 138 10^3/uL L 10^3/uL (150-400) MPV 12.0 fL H fL (8.7-11.7) Neut % (Auto) 74.7 % H % (39.3-74.2) Lymph % (Auto) 12.4 % L % (15.0-45.0) [place] % (Auto) 11.7 % % (4.5-13.0) Eos % (Auto) 0.6 % % (0.6-7.6) Baso % (Auto) 0.2 % L % (0.3-1.7) Nucleat RBC Rel Count 0.0 % % (0.0-0.2) Absolute Neuts (auto) 8.48 10^3/uL H 10^3/uL (1.70-6.50) Absolute Lymphs (auto) 1.41 10^3/uL 10^3/uL (1.00-3.00) Absolute Monos (auto) 1.33 10^3/uL H 10^3/uL (0.30-0.80) Absolute Eos (auto) 0.07 10^3/uL 10^3/uL (0.03-0.40) Absolute Basos (auto) 0.02 10^3/uL 10^3/uL (0.02-0.10) Absolute Nucleated RBC 0.00 10^3/uL 10^3/uL (0-0.01) Immature Gran % 0.4 % % (0.0-1.1) Immature Gran # 0.04 10^3/uL 10^3/uL (0.00-0.10) PT 14.7 SEC SEC (12.0-15.0) INR 1.13 (0.83-1.16) APTT 33.2 SEC SEC (23.0-38.0) VBG Lactic Acid Sodium 135 mEq/L mEq/L (135-145) Potassium 4.2 mEq/L mEq/L (3.3-5.0) Chloride 97 mEq/L mEq/L (97-110) Carbon Dioxide 25 mEq/l mEq/l (22-31) Anion Gap 13 mEq/L mEq/L (8-16) BUN 17 mg/dL mg/dL (7-23) Creatinine 0.7 mg/dL mg/dL (0.6-1.0) Estimated GFR > 60 Glucose 189 mg/dL H mg/dL (70-100) POC Lactic Acid Buddy Calcium 9.9 mg/dL mg/dL (8.5-10.4) Total Bilirubin 1.2 mg/dL mg/dL (0.1-1.4) Conjugated Bilirubin 0.8 mg/dL H mg/dL (0.0-0.5) Unconjugated Bilirubin 0.4 mg/dL mg/dL (0.0-1.1) AST 51 IU/L H IU/L (14-46) ALT 58 IU/L H IU/L (9-52) Alkaline Phosphatase 140 IU/L H IU/L (38-126) POC Troponin I Total Protein 7.2 g/dL g/dL (6.3-8.2) Albumin 4.0 g/dL g/dL (3.5-5.0) Lipase 181 IU/L IU/L (23-300) Urine Color Urine Appearance Urine pH Ur Specific [place] Urine Protein Urine Ketones Urine Blood Urine Nitrate Urine Bilirubin Urine Urobilinogen Ur Leukocyte Esterase Urine RBC Urine WBC Ur Epithelial Cells Urine Mucus Urine Glucose 08/27/17 22:00 WBC RBC Hgb Hct MCV MCH MCHC RDW Plt Count MPV Neut % (Auto) Lymph % (Auto) [place] % (Auto) Eos % (Auto) Baso % (Auto) Nucleat RBC Rel Count Absolute Neuts (auto) Absolute Lymphs (auto) Absolute Monos (auto) Absolute Eos (auto) Absolute Basos (auto) Absolute Nucleated RBC Immature Gran % Immature Gran # PT INR APTT VBG Lactic Acid 1.2 mmol/L mmol/L (0.7-2.1) Sodium Potassium Chloride Carbon Dioxide Anion Gap BUN Creatinine Estimated GFR Glucose POC Lactic Acid Buddy Calcium Total Bilirubin Conjugated Bilirubin Unconjugated Bilirubin AST ALT Alkaline Phosphatase POC Troponin I Total Protein Albumin Lipase Urine Color Urine Appearance Urine pH Ur Specific [place] Urine Protein Urine Ketones Urine Blood Urine Nitrate Urine Bilirubin Urine Urobilinogen Ur Leukocyte Esterase Urine RBC Urine WBC Ur Epithelial Cells Urine Mucus Urine Glucose Medications Given: Discontinued Medications Sodium Chloride (Ns) 1,000 mls @ 0 mls/hr IV EDNOW ONE; Wide Open PRN Reason: Protocol Stop: 08/27/17 21:56 Last Admin: 08/27/17 22:19 Dose: 1,000 mls Ceftriaxone Sodium/Dextrose (Rocephin 1 Gm (Premix)) 50 mls @ 100 mls/hr IV EDNOW ONE PRN Reason: Protocol Stop: 08/27/17 23:53 Last Admin: 08/27/17 23:39 Dose: 50 mls Promethazine HCl (Phenergan) 6.25 mg IVP ONCE ONE Stop: 08/27/17 22:01 Last Admin: 08/27/17 22:20 Dose: 6.25 mg Point of Care Test Results: Chemistry 08/27/17 22:07 POC Troponin I 0.04 ng/mL ng/mL (0.00-0.08) Blood Gas/Lactic Acid-Venous 08/27/17 22:08 POC Lactic Acid Buddy 1.1 mmol/L mmol/L (0.7-2.1) Departure - Departure Disposition: [facility] Acute Clinical Impression: Kidney infarction, Dehydration Diarrhea Qualifiers: Diarrhea type: unspecified type Qualified Code(s): R19.7 - Diarrhea, unspecified Condition: Fair Referrals: Placido Fontanez DO [Primary Care Provider] - As per Instructions
[2017-08-27] MEDS ORDERED: NS 1,000 ML IV ONE (21:55)
[2017-08-27] MEDS ORDERED: PROMETHAZINE HCL 25 MG/ML INJ IVP ONE (22:00)
--- NOTE | 2017-08-27 22:04 | CPEKG ---
Heart Rate: 81 RR Interval: 741 QRSD Interval: 106 QT Interval: 344 QTC Interval: 400 P Perkins: 0 QRS Perkins: -98 T Wave Perkins: -56 EKG Severity - ABNORMAL ECG - EKG Impression: ATRIAL-SENSED VENTRICULAR-PACED COMPLEXES EKG Impression: INCOMPLETE RIGHT BUNDLE BRANCH BLOCK EKG Impression: LOW VOLTAGE THROUGHOUT EKG Impression: BORDERLINE PROLONGED QT INTERVAL Electronically Signed By: Tiburcio Anne 28-Aug-2017 07:27:11
[2017-08-27 22:18] LABS: PLATELET COUNT 138 10^3/uL (150-400)
[2017-08-27 22:19] LABS: INR 1.13 (0.83-1.16); PROTIME(PATIENT) 14.7 SEC (12.0-15.0)
[2017-08-27] MEDS ORDERED: IOPAMIDOL (ISOVUE-300) 100 ML BTL ONE (22:34)
[2017-08-28] MEDS ORDERED: ENOXAPARIN 60 MG/0.6 ML SYR SC ONE (00:05)
[2017-08-28] MEDS ORDERED: LORazepam 0.5 MG TAB PO ONE (01:22)
[2017-08-28] MEDS ORDERED: ACETAMINOPHEN 325 MG TAB PO PRN (01:22)
[2017-08-28] MEDS ORDERED: LORazepam 0.5 MG TAB ONE (01:23)
[2017-08-28] MEDS: LORazepam 0.5 MG TAB PO PRN ×2 (01:27→15:39)
[2017-08-28] MEDS ORDERED: D50W 25 GM/50 ML SYR IVP PRN (03:03)
[2017-08-28] MEDS ORDERED: ONDANSETRON 4 MG/2 ML VIAL IVP ONE (03:23)
[2017-08-28] MEDS ORDERED: MAG HYDROX/AL HYDROX/SIMETH 30 ML UDCUP PO PRN (03:23)
--- NOTE | 2017-08-28 04:48 | GHP ---
[f rep st] HISTORY AND PHYSICAL DATE OF ADMISSION: 08/28/2017 SOURCE: Patient provides history, appears reliable. EMR was reviewed and case discussed with ED provider. Additionally, patient's daughter was at bedside, supplemented some details. CHIEF COMPLAINT: Nausea, vomiting, diarrhea, and left flank pain for 2 days. HISTORY OF PRESENT ILLNESS: This is a very pleasant 81-year-old female with a significant cardiac history for coronary artery disease with history of stenting up to 6 and CABG, ischemic cardiomyopathy, last EF of 25%, status post ICD pacer placement, diabetes type 2, hypotension, FRANKY on CPAP, remote history of breast cancer, status post XRT lumpectomy, GERD, AFib, depression, Meniere's , iron deficiency, who presents to the emergency department today with complaints of left flank pain as primary complaint. She actually had multiple issues, which she described to the ER provider, but ongoing with left flank pain when she first arrived, which has now since resolved. The patient states that for 2 days she has had some nausea, vomiting, and diarrhea, watery stools. No melena or hematochezia. No known sick contacts. The patient also reports that she has been having abdominal distention. She did have multiple episodes of diarrhea that resolved a day and half ago. Since that time, patient has not had any bowel movement and is feeling like her abdomen is distended. She denies any abdominal pain or cramping. She denies any dysuria or hematuria. She denies any fevers, chills or sweats. The patient has chronic shortness of breath at her baseline. No increase in cough. No chest pain. Patient does note that she has bilateral neck and shoulder blade pain for the past few days. The patient states that she does develop a little bit of left arm pain, but no chest pain is reported. She denies any increased lower extremity edema. She has chronic lightheadedness, which she also reports is at baseline. The patient additionally reports that she has been feeling a little bit weaker and more fatigued in the last several days. Daughter also notes that patient was recently started on BuSpar for her anxiety, which has been helping with that, but would be the only new medication that she has been on in months. REVIEW OF SYSTEMS: GENERAL: No fevers, chills, or sweats. SKIN: No rashes, sores. ENT: No congestion or sore throat. EYES: Patient denies any acute changes in vision or ocular pain. She wears glasses. CV: Patient denies any chest pain or palpitations. No lower extremity edema. RESPIRATORY: Patient with baseline shortness of breath. Nothing acute. GI: Nausea, vomiting, diarrhea, abdominal distention as noted per HPI. : No dysuria or hematuria. The patient is complaining of left-sided flank pain that radiates around to the anterior lower abdomen. MUSCULOSKELETAL: Patient denies any increased joint pain or myalgias. NEURO: Patient reports chronic history of lightheadedness, which is unchanged, non vertiginous. The patient denies any focal symptoms. PSYCH: Patient denies any anxiety or depression. Remainder of review of systems is negative, except as noted above. ALLERGIES: Penicillin, propoxyphene, escitalopram and hydrocodone. HOME MEDICATIONS: As per EMR. Have reviewed with the patient and daughter at bedside: 1. Venlafaxine 150 mg p.o. b.i.d. 2. Torsemide 10 mg p.o. daily. 3. Crestor 10 mg p.o. at h.s. 4. Lispro t.i.d. with meals. 5. Sliding scale. 6. Lantus 20 units subcu b.i.d. 7. Vitamin D 2000 units p.o. daily. 8. Coreg 6.25 mg p.o. b.i.d. 9. Aspirin 81 mg p.o. daily. 10. Anastrazole or Arimidex 1 mg p.o. daily. 11. Tylenol 500 p.o. q.6 hours p.r.n. for pain. 12. Alprazolam 0.5 mg p.r.n. for anxiety. 13. Losartan 12.5 mg tab, half tab p.o. daily. 14. Potassium chloride also, but patient's daughter does not recall the dosing. PAST MEDICAL HISTORY: Significant for ischemic cardiomyopathy with the EF of 25 %, CAD with history of CABG 4 vessel with 6 stents, ICD pacer in place, diabetes type 2, hypertension, FRANKY on CPAP, CHF, breast cancer, status post XRT and lumpectomy, GERD, atrial fibrillation, depression, Meniere's, iron deficiency anemia, right bundle branch block and pancreatitis in the past. PAST SURGICAL HISTORY: Significant for left breast lumpectomy, ICD/pacer placement, CABG, CEA, hysterectomy, cataract extraction with lens placement, cholecystectomy. FAMILY HISTORY: Significant for father, brother and sisters with history of CAD and diabetes type 2. SOCIAL HISTORY: Patient lives with her daughter and son. She does not smoke, drink, or do drugs. COR STATUS: Full. PHYSICAL EXAMINATION: VITAL SIGNS: Upon arrival to the emergency department, blood pressure 131/77, heart rate 82, respiratory rate 16, O2 saturation 94% on room air with temperature 36.4. Current vitals available, blood pressure 133/74 , heart rate is 75, respiratory rate 18, O2 saturation 96% on 2 L by nasal cannula. GENERAL: No acute distress. Very pleasant, elderly, frail-appearing female who is lying quietly in bed. Her daughter is at bedside. HEAD: Normocephalic, atraumatic. EYES: Extraocular muscles are grossly intact. Pupils equal, round, react to light bilaterally and symmetric. No scleral icterus or conjunctival injection. ENT: Mucous membranes appear moist. No oropharyngeal erythema. Dentition in fair condition. Some are missing. NECK: Supple. Trachea midline. No JVD. CV: Regular rate and rhythm. No rubs or gallops. Patient with 3/6 systolic murmur. RESPIRATORY: Lungs are clear to auscultation bilaterally. No wheezes, rales, or rhonchi appreciated. ABDOMEN: Distended slightly, but soft. No significant tenderness to palpation. No rebound or guarding appreciated. : No suprapubic tenderness to palpation. No Vinson catheter in place. MUSCULOSKELETAL: Strength grossly declined 4/5 upper and lower extremities. Patient does require a little bit of assistance sitting up. NEURO: Grossly nonfocal. No facial drooping. Moves all extremities as noted above. PSYCH: Patient is a little bit anxious, but she denies any SI or HI. Her thought process, content and questions all appear appropriate. LABORATORY STUDIES: 1. WBC is 11.35, H and H 12.4 and 38.5, MCV of 97.7, platelet count 138, neutrophil percent 74.5% without any bands. 2. PT is 14.7, INR is 1.13, PTT is 32.2. 3. VBG. Lactic acid 1.2. 4. Sodium is 135, potassium is 4.2, chloride 97, CO2 25, anion gap 13, BUN 17, creatinine 0.7, GFR greater than 60, glucose is 189, lactic acid is 1.1, calcium is 9.9, total bili is 1.2, conjugated bili 0.8, ALT 58, AST 51, alk phos is 140. Troponin is negative 0.04, total protein 7.2, albumin is 4.0, lipase is 181. 5. CT abdomen and pelvis: Image report reviewed myself. Findings: Evidence of acute renal infarct in the anterior pole of the left kidney. Evidence of extensive atherosclerotic changes in abdominal vasculature. No evidence of aortic aneurysm or dissection. Other chronic findings including post cholecystectomy. Small hypodense lesion seen in the liver, nonspecific, likely benign. Hypodense lesions superior pole left kidney, too small to characterize , likely representing renal cortical cysts. No evidence of hydronephrosis either kidney. No renal calculus. 6. CT of the chest: Moderate size hiatal hernia. Cardiomegaly with evidence of prior open heart surgery with catheter pacer tube pacing leads stable. Heart enlarged. No evidence of pericardial effusion. No significant mediastinal or hilar lymphadenopathy. Atherosclerotic changes in the thoracic aorta without evidence for aneurysmal dilation. Calcification seen in the coronary arteries, moderate size hiatal hernia 5.5 mm pulmonary nodule in the right middle lobe posteromedially. Appears unchanged from previous imaging, likely benign. Degenerative changes in thoracic spine. 7. Chest x-ray showing stable cardiomegaly with potential for pleural effusion or atelectasis left lung base and minimal right pleural effusion not noted on CT. 8. EKG showing atrial sensed ventricular paced complexes. Incomplete right bundle branch block, low voltage diffusely, borderline QT prolonged interval. ASSESSMENT AND PLAN: This is a pleasant 81-year-old female with a significant cardiac history as noted above, who presents to the emergency department with complaints of left flank pain/abdominal pain, nausea, vomiting, and diarrhea. 1. Left flank pain. Patient's CT consistent with a left renal infarct and inferior pole of the left kidney. The patient does have a history of paroxysmal atrial fibrillation, currently in normal sinus. She is not currently on anticoagulation. Additionally, she has a significant cardiac history with ischemic cardiomyopathy, last ejection fraction known was 25%. She is due for an echo in September, but will plan to go ahead and evaluate echocardiogram in the morning and assess if the patient's cardiac function has declined further. She also has noted atherosclerotic disease diffusely and already on a statin. Patient will require PCU monitoring, echocardiogram, and consideration for long-term anticoagulation. At this time, patient has received therapeutic dosing of Lovenox. We will schedule this b.i.d. until day team can ascertain a definitive plan regarding long-term anticoagulation and if such will be covered or what kind. Additionally, further evaluation of patient' s cardiac status is needed. Close monitoring on telemetry given the multiple cardiac risk factors for increased risk of renal infarct. Will monitor for any decline in renal function. Nephrology was consulted from the emergency department for recommendations and treatment of the infarct. 2. Urinary tract infection present on admission. Patient with left-sided flank pain, but could be related to the infarct versus early pyelo. The patient without any dysuria or hematuria and is afebrile. She has received Rocephin in the emergency department. At this point, will plan to continue. 3. Abdominal pain, likely related to patient's nausea, vomiting, diarrhea, and the renal infarct particularly. Currently, patient's symptoms have improved. She received a dose of Phenergan in the emergency department in lieu of Zofran secondary to concerns of patient's QT prolongation and her history of a severe ischemic cardiomyopathy. Urine culture is pending for review. Continue Rocephin until it resolves. 4. Anemia, likely of chronic disease, minimally declined. 5. Chronic medical issues. 6. Ischemic cardiomyopathy with ejection fraction of 25%, status post implantable cardioverter defibrillator, echo in the morning as noted above. Consider cardiology consultation pending results. 7. Systolic congestive heart failure due to above. 8. Coronary artery disease with history of coronary artery bypass graft and stenting. Continue statin, aspirin, on therapeutic Lovenox. No complaints of chest pain. 9. Diabetes type 2. We will plan to resume patient's home Lantus 20 units b.i.d. and then add a sliding scale with lispro. ADA diet is ordered. 10. Hypotension. History of patient's blood pressures at this time are quite acceptable. 11. Obstructive sleep apnea on CPAP. Supplemental oxygen for tonight. History of breast cancer. 12. Right lumpectomy and continues on Arimidex. 13. Gastroesophageal reflux disease. Currently asymptomatic p.r.n. 14. Atrial fibrillation, currently paced rhythm. Plan to continue patient's carvedilol once med rec is available. 15. Benign essential hypertension. Continue patient's losartan and metoprolol. Patient is not currently on any anticoagulation, but further discussion given acute renal infarct tomorrow as per day team. 16. Depression. Continue patient's home venlafaxine and BuSpar. 17. Meniere disease. Patient with complaints of persistent lightheadedness, mobility adequate, but will have patient mobilize p.r.n. with assistance. 18. Iron deficiency anemia. Patient not currently on supplementation. Continue to monitor. No evidence of active bleeding. 19. Fluid, electrolyte, nutrition. Saline lock intravenous with history of congestive heart failure. Patient is tolerating oral intake. ADA diet is ordered. May require some fluid restriction if patient starts to become edematous. Electrolyte monitoring replacement if needed. 20. Prophylaxis. Status post therapeutic Lovenox 1 mcg per kg. Will plan to continue this b.i.d. until can ascertain patient's long-term goal for anticoagulation with renal infarct. 21. Cor status is full. 22. Disposition: The patient admitted to inpatient status given the acute infarct. Her severe cardiomyopathy will likely require additional midnight stay pending further evaluation with echo. Cardiac monitoring, hemoglobin and hematocrit, and decision on anticoagulation long-term. Admit patient to PCU for close cardiac monitoring. /[id number]/MODL MTDD
[2017-08-28 06:05] LABS: PLATELET COUNT 126 10^3/uL (150-400)
[2017-08-28] MEDS: INSULIN LISPRO 100 UNIT/ML SC SCH ×3 (08:55→18:06)
[2017-08-28] MEDS: INSULIN GLARGINE 100 UNITS/ML UNIT SC SCH ×2 (09:36→21:08)
--- NOTE | 2017-08-28 11:58 | ECHO ---
[email or web address] [address] [address] Main: [phone] Fax: Transthoracic Echocardiogram Name: JAKE RAI MR#: [id number] Study Date: 08/28/2017 Study Time: 08:32 AM Date of : 1935 Age: 81 year(s) Height: 154.9 cm (61 in.) Weight: 58.97 kg (130 lb.) BSA: 1.57 m2 Gender: Female Examination: Echo Indication: CHF Image Quality: Contrast: Requested by: Velvet Garcia BP: 171 mmHg/92 mmHg Heart Rate: Rhythm: Pacemaker rhythm Indication: CHF Procedure Staff Director Field Services: Goyo Parra RDCS Reading Physician: Jennifer Moya MD Requesting Provider: Conclusions: Normal size left ventricle. Mild concentric LV hypertrophy. Moderately to severely reduced systolic function. EF is 26 %. Grade 3 diastolic dysfunction (reversible restrictive LV filling pattern). Elevated left ventricular filling pressures.. Normal size right ventricle. Normal RV function. There is a ICD/Pacer wire noted in the right ventricle. Flattened interventricular septum consistent with right ventricular pressure and/or volume overload free wall. The left atrium is mildly dilated. Mild mitral valve regurgitation is present. Mild aortic valve regurgitation is present. Mild tricuspid regurgitation is present. The pulmonary artery pressure is moderately increased. Compared with 03/18/2017 overall similar findings. We were now able to assess PA pressure and find moderate pulmonary hypertension. Measurements: Chambers Valvular Assessment AV/MV Valvular Assessment TV/PV Normal Normal Normal Name Value Range Name Value Range Name Value Range Ao Crystal (MM): 2.7 cm (2.2 cm-3.7 AV Vmax: 1.49 m/s (1 m/s-1.7 TR Vmax: 3.42 mm/s ( - ) cm) m/s) TR PGmax: 47 mmHg ( - ) IVSd (2D): 1.0 cm (0.6 cm-1.1 AV maxP mmHg ( - ) syst. PAP: 52 mmHg ( - ) cm) AV meanP mmHg ( - ) PV Vmax: 0.81 m/s (0.6 m/s-0.9 LVDd (2D): 4.8 cm (3.9 cm-5.3 LVOT Vmax: 0.63 m/s (0.7 m/s-1.1 m/s) cm) m/s) PV PGmax: 3 mmHg ( - ) JONNA (Vmax): 1.2 cm2 ( - ) Patient: JAKE RAI Study Date: 08/28/2017 Page 1 of 2 08:32 AM LVDs (2D): 4.5 cm (2.1 cm-4 JONNA (VTI): 1.2 cm ( - ) cm) AR (PHT): 464 ms ( - ) LVPWd (2D): 1.1 cm ( - ) MV E Vmax: 1.35 m/s ( - ) LVOTd 1.9 cm 1.9 cm mm MV A Vmax: 0.80 m/s ( - ) LVEF (BP): 26 % (>=55 %) MV E/A: 1.69 ( - ) RVDd(2D): 3.6 cm (1.9 cm-3.8 cmmm) Continued Measurements: Chambers Valvular Assessment AV/MV Valvular Assessment TV/PV Name Value Name Value Name Value LADs Lon.1 cm MV Annulus: 3.7 cm CVP (est.): 5 mmHg LA Area: 17.7 cm2 MV E/E' Septal: 33.00 LA Volume: 49 ml MV E/E' Lateral: 39.60 LA Volume Index: 31.2 ml/m2 MR ERO: 0.120 cm2 MR PISA radius: 6 mm MR Reg. Volume: 21 ml AR Vmax: 4.49 cm/s Findings: Left Ventricle: Normal size left ventricle. Mild concentric LV hypertrophy. Moderately to severely reduced systolic function. EF is 26 %. Grade 3 diastolic dysfunction (reversible restrictive LV filling pattern). Elevated left ventricular filling pressures.. Right Ventricle: Normal size right ventricle. Normal RV function. There is a ICD/Pacer wire noted in the right ventricle. Flattened interventricular septum consistent with right ventricular pressure and/or volume overload free wall. Left Atrium: The left atrium is mildly dilated. Right Atrium: The right atrium is mildly dilated. Mitral Valve: The mitral valve is normal in appearance. Mild mitral valve regurgitation is present. Aortic Valve: Mild aortic cusp calcification is noted. No aortic valve stenosis is present. Mild aortic valve regurgitation is present. Tricuspid Valve: The tricuspid valve is normal in appearance and function. Mild tricuspid regurgitation is present. The pulmonary artery pressure is moderately increased. Pulmonic Valve: The pulmonic valve is normal in appearance and function. Aorta: The aorta is normal. Pericardium: No pericardial effusion. (No Signature Object) Patient: JAKE RAI Study Date: 08/28/2017 Page 2 of 2 08:32 AM [id number]
[2017-08-28] MEDS: ENOXAPARIN 60 MG/0.6 ML SYR SC SCH ×2 (12:15→21:06)
[2017-08-28] MEDS ORDERED: SPIRONOLACTONE 25 MG TAB PO SCH (13:45)
--- NOTE | 2017-08-28 14:28 | PDMN ---
Medical Necessity Medical necessity: MCG: MGUD ([facility]); Urologic Disease GRG; 3 days, 81 y/o presents w/ N/V/D found on CT acute renal infarct anterior pole left kidney, nephrology consult, IV antibiotics needed, hx CABG, ICD, diabetes. Continue to monitor and treat, anticipate >2MN.
[2017-08-28] MEDS: VENLAFAXINE XR 150 MG CAP PO SCH ×2 (15:38→21:05)
[2017-08-28] MEDS: CARVEDILOL 6.25 MG TAB PO SCH ×2 (15:41→21:07)
[2017-08-28] MEDS: busPIRone 5 MG TAB PO SCH ×2 (15:41→21:05)
[2017-08-28] MEDS: LOSARTAN POTASSIUM 25 MG TAB PO SCH (15:49)
[2017-08-28] MEDS: ASPIRIN 81 MG CHEWABLE TAB PO SCH (15:50)
[2017-08-28] MEDS: ANASTROZOLE 1 MG TAB PO SCH (15:53)
[2017-08-28] MEDS: TORSEMIDE 20 MG TAB PO SCH (15:53)
[2017-08-28] MEDS ORDERED: D50W 25 GM/50 ML VIAL IVP PRN (16:28)
--- NOTE | 2017-08-28 17:03 | HOSPPROG ---
Hospitalist Progress Note Assessment/Plan: Renal infarct - query thrombosis from A fib or aortic plaque. -cont Lovenox AHRF - 90-92% on 4 LPM O2, does not use home O2. Considered PE with renal infarct and e/o RV strain on echo. CTA ordered, neg for PE but pleural effusions and mild interstital edema have developed (pers reviewed / interp) and she has crackles on exam. -IV Lasix now, check bnp (baseline 8K - 11K) -cont home torsemide dose -follow I&O's, daily weights A fib - Chads-vasc 5, not anti-coagulated for unclear reasons, possibly fall risk. Will review outpt records. -cont rate control with coreg -Lovenox as above, likely transition to Eliquis at dc ICM with EF 25% s/p ICD - EF unchanged on echo. She is a bit volume overloaded , IV Lasix as above -cardiology consult requested for am CAD s/p CABG - ASA, statin, BB DM type 2 - bg's 200's -cont lantus, increase lispro Hypertension -well controlled, cont current meds Fall risk - this can likely be mitigated by using her walker, which she has not been doing -PT/OT evals Possible UTI - significant pyuria on UA, but no symptoms and no fevers -cont ceftriaxone while awaiting Cx data, d/c atbx if Cx neg FRANKY - CPAP GERD - PPI Full code Dispo - cont inpt, PT/OT evals Subjective: Pt feels ok. She is a bit short of breath lying down. Denies CP. Abdominal discomfort is better. She reports 4 falls in past several months, all without her walker. She thinks she should walk on her own. No fevers/ chills. Objective: Vital Signs Temp Pulse Resp BP Pulse Ox 36.9 C 102 H 24 H 118/78 87 L 08/28/17 15:06 08/28/17 15:41 08/28/17 15:06 08/28/17 15:49 08/28/17 15:06 Laboratory Results 08/28/17 05:55 08/28/17 05:55 08/27/17 08/28/17 08/29/17 05:59 05:59 05:59 Intake Total 1400 Balance 1400 PT 14.7 SEC (12.0-15.0) 08/27/17 22:01 INR 1.13 (0.83-1.16) 08/27/17 22:01 - Physical Exam Constitutional: no apparent distress Eyes: PERRL Ears, Nose, Mouth, Throat: moist mucous membranes Cardiovascular: regular rate and rhythym Respiratory: no respiratory distress, inspiratory crackles Gastrointestinal: normoactive bowel sounds, soft, non-tender abdomen Skin: warm Musculoskeletal: full muscle strength Neurologic: AAOx3 Psychiatric: interacting appropriately ICD10 Worksheet Patient Problems: Problems Problem Status Onset Dehydration Acute Diarrhea Acute Kidney infarction Acute Acute blood loss anemia Acute Cardiomyopathy Acute Dizziness Acute Elevated troponin Acute Hyperkalemia Acute Renal insufficiency Acute S/P CABG x 4 Acute ~11/03/16 CAD, multiple vessel Chronic Dilated cardiomyopathy Chronic
[2017-08-28] MEDS ORDERED: IOPAMIDOL (ISOVUE 370) 100 ML BTL IV ONE (17:24)
[2017-08-28] MEDS ORDERED: FUROSEMIDE 20 MG/2 ML VIAL IVP ONE (19:29)
[2017-08-28] MEDS: ROSUVASTATIN CALCIUM 10 MG TAB PO SCH (21:05)
[2017-08-29 05:19] LABS: PLATELET COUNT 126 10^3/uL (150-400)
[2017-08-29] MEDS ORDERED: PROTOCOL POTASSIUM 1 DOSE MISC PRN (07:06)
[2017-08-29] MEDS: INSULIN LISPRO 100 UNIT/ML SC SCH ×3 (09:22→18:41)
[2017-08-29] MEDS: ENOXAPARIN 60 MG/0.6 ML SYR SC SCH ×2 (09:48→21:28)
[2017-08-29] MEDS: TORSEMIDE 20 MG TAB PO SCH (09:48)
[2017-08-29] MEDS: LOSARTAN POTASSIUM 25 MG TAB PO SCH ×2 (09:49→11:02)
[2017-08-29] MEDS: ASPIRIN 81 MG CHEWABLE TAB PO SCH (09:49)
[2017-08-29] MEDS: SPIRONOLACTONE 25 MG TAB PO SCH (09:49)
[2017-08-29] MEDS: VENLAFAXINE XR 150 MG CAP PO SCH ×2 (09:49→21:28)
[2017-08-29] MEDS: CARVEDILOL 6.25 MG TAB PO SCH ×3 (09:49→21:28)
[2017-08-29] MEDS: ANASTROZOLE 1 MG TAB PO SCH (09:50)
[2017-08-29] MEDS: busPIRone 5 MG TAB PO SCH ×2 (09:50→21:33)
[2017-08-29] MEDS ORDERED: POTASSIUM CL 10 MEQ TAB PO ONE ×2 (10:59→15:15)
[2017-08-29] MEDS: INSULIN GLARGINE 100 UNITS/ML UNIT SC SCH ×2 (11:31→21:28)
--- NOTE | 2017-08-29 14:07 | HOSPPROG ---
Hospitalist Progress Note Assessment/Plan: Renal infarct - query thrombosis from A fib or aortic plaque. -cont Lovenox AHRF - 4 LPM yest, now 0.5 LPM, does not use home O2. CTA neg for PE but pleural effusions and mild interstital edema have developed, crackles persist on exam. BNP 41K, baseline 8-11K -repeat IV Lasix now -cont home torsemide dose -follow I&O's, daily weights A fib - Chads-vasc 5, not anti-coagulated as outpt for unclear reasons, possibly fall risk. Will review outpt records. -cont rate control with coreg -Lovenox as above, likely transition to Eliquis at dc ICM with EF 25% s/p ICD - EF unchanged on echo. She is still a bit volume overloaded, IV Lasix as above -cardiology consult pending CAD s/p CABG - ASA, statin, BB DM type 2 - bg's 200's -cont lantus, increase lispro Hypertension -well controlled, cont current meds Fall risk - this can likely be mitigated by using her walker, which she has not been doing -PT/OT evals, may benefit from rehab Possible UTI - UCx neg, d/c ceftriaxone FRANKY - CPAP GERD - PPI Full code Dispo - cont inpt, PT/OT evals Subjective: Pt doing well. Still has some mild pain in left side. No CP or SOB. No fevers. Still quite fatigued. Objective: Vital Signs Temp Pulse Resp BP Pulse Ox 37.0 C 72 14 98/55 L 93 08/29/17 11:23 08/29/17 11:23 08/29/17 11:23 08/29/17 11:23 08/29/17 11:23 Laboratory Results 08/29/17 04:50 08/29/17 04:50 08/28/17 08/29/17 08/30/17 05:59 05:59 05:59 Intake Total 1750 Output Total 800 Balance 950 PT 14.7 SEC (12.0-15.0) 08/27/17 22:01 INR 1.13 (0.83-1.16) 08/27/17 22:01 - Physical Exam Constitutional: no apparent distress Eyes: PERRL Ears, Nose, Mouth, Throat: moist mucous membranes Cardiovascular: regular rate and rhythym Respiratory: no respiratory distress, clear to auscultation Gastrointestinal: normoactive bowel sounds, soft, non-tender abdomen Skin: warm Musculoskeletal: full muscle strength Neurologic: AAOx3 Psychiatric: interacting appropriately ICD10 Worksheet Patient Problems: Problems Problem Status Onset Dehydration Acute Diarrhea Acute Kidney infarction Acute Acute blood loss anemia Acute Cardiomyopathy Acute Dizziness Acute Elevated troponin Acute Hyperkalemia Acute Renal insufficiency Acute S/P CABG x 4 Acute ~11/03/16 CAD, multiple vessel Chronic Dilated cardiomyopathy Chronic
[2017-08-29] MEDS ORDERED: FUROSEMIDE 20 MG/2 ML VIAL IVP ONE (14:08)
[2017-08-29] MEDS: ROSUVASTATIN CALCIUM 10 MG TAB PO SCH (21:33)
[2017-08-30 04:40] LABS: PLATELET COUNT 118 10^3/uL (150-400)
[2017-08-30] MEDS ORDERED: INSULIN GLARGINE 100 UNITS/ML UNIT SC SCH (06:17)
[2017-08-30] MEDS ORDERED: D50W 25 GM/50 ML SYR IVP PRN (06:51)
[2017-08-30] MEDS ORDERED: POTASSIUM CL 10 MEQ TAB PO ONE ×2 (08:14→21:01)
[2017-08-30] MEDS: busPIRone 5 MG TAB PO SCH ×2 (09:13→20:26)
[2017-08-30] MEDS: SPIRONOLACTONE 25 MG TAB PO SCH (09:13)
[2017-08-30] MEDS: TORSEMIDE 20 MG TAB PO SCH (09:13)
[2017-08-30] MEDS: VENLAFAXINE XR 150 MG CAP PO SCH ×2 (09:13→20:26)
[2017-08-30] MEDS: ENOXAPARIN 60 MG/0.6 ML SYR SC SCH ×2 (09:13→20:27)
[2017-08-30] MEDS: ANASTROZOLE 1 MG TAB PO SCH (09:13)
[2017-08-30] MEDS: ASPIRIN 81 MG CHEWABLE TAB PO SCH (09:14)
[2017-08-30] MEDS: INSULIN LISPRO 100 UNIT/ML SC SCH ×3 (09:16→17:27)
[2017-08-30] MEDS: CARVEDILOL 6.25 MG TAB PO SCH ×2 (09:17→22:52)
[2017-08-30] MEDS: LOSARTAN POTASSIUM 25 MG TAB PO SCH (09:17)
--- NOTE | 2017-08-30 10:37 | HOSPPROG ---
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 Nephrology consulted and recommended anticoagulation. Renal infarct - query thrombosis from A fib or aortic plaque. -cont Lovenox, initiating coumadin, pharmacy to dose, may need bridging therapy at d/c AHRF - 4 --> 2 LPM, does not use home O2. CTA neg for PE but pleural effusions and mild interstital edema, crackles persist on exam. BNP 41K, baseline 8-11K. Have continued home torsemide dose 10 mg daily with additional dose of IV lasix 20 mg past 2 days, now with hypotension and mild orthostasis -back off on diuresis, cards to see to assist with tenuous volume status ( rec cont low dose torsemide, d/w Dr. Berkowitz) -follow I&O's, daily weights A fib - Chads-vasc 5, not anti-coagulated as outpt for unclear reasons, possibly fall risk. Unclear if true h/o A fib (h/o A fib stated in A fib) -device interrogation planned to evaluate -cont rate control with coreg -Lovenox as above, start coumadin given renal infarct ICM with EF 25% s/p ICD - EF unchanged on echo. CAD s/p CABG - ASA, statin, BB DM type 2 - hypoglycemic this am to 40, bg recovered to 188 s/p IV dextrose -hold lantus for now, resume at 1/2 dose tomorrow if bg's elevated -continue lower dose SSI Hypertension - has had some mild hypotension -cont current meds with hold parameters Fall risk - this can likely be mitigated by using her walker, which she has not been doing -PT/OT evals, may benefit from rehab Possible UTI - UCx neg, d/c ceftriaxone FRANKY - CPAP GERD - PPI Full code Dispo - cont inpt, PT/OT evals, recommend SNF Subjective: Pt feels well. No CP or SOB. Left flank pain is improved. She is ambulating with walker. Objective: Vital Signs Temp Pulse Resp BP Pulse Ox 36.5 C 76 18 85/51 L 93 08/30/17 09:17 18 09:18 08/30/17 09:21 08/30/17 09:21 08/30/17 09:21 Laboratory Results 08/30/17 03:35 08/30/17 03:35 08/29/17 08/30/17 08/31/17 05:59 05:59 05:59 Intake Total 1750 800 600 Output Total 800 550 Balance 950 250 600 PT 14.7 SEC (12.0-15.0) 08/27/17 22:01 INR 1.13 (0.83-1.16) 08/27/17 22:01 - Physical Exam Constitutional: no apparent distress Eyes: PERRL Ears, Nose, Mouth, Throat: moist mucous membranes Cardiovascular: regular rate and rhythym Respiratory: no respiratory distress, inspiratory crackles Gastrointestinal: normoactive bowel sounds, soft, non-tender abdomen Skin: warm Musculoskeletal: generalized weakness Neurologic: AAOx3 Psychiatric: interacting appropriately ICD10 Worksheet Patient Problems: Problems Problem Status Onset Dehydration Acute Diarrhea Acute Kidney infarction Acute Acute blood loss anemia Acute Cardiomyopathy Acute Dizziness Acute Elevated troponin Acute Hyperkalemia Acute Renal insufficiency Acute S/P CABG x 4 Acute ~11/03/16 CAD, multiple vessel Chronic Dilated cardiomyopathy Chronic
--- NOTE | 2017-08-30 12:20 | ASMTCMCOM ---
CM Note CM Note Notes: Pt admitted with renal infarct. Normally lives at home with her , son & daughter in law. OT recommending Home vs HHC vs SNF. PT recommending HHC vs SNF. Met with pt to discuss; pt interested in SNF, but does not want to stay overnight. States she would like more of an "outpatient day program". Discussed Outpatient Therapy vs HHC vs SNF. Pt would like to discuss options with her . List of SNFs provided to pt; pt states her son may be interested in visiting a few of them, particularly in the [facility] area. CM to followup. Date Signed: 08/30/2017 12:19 PM Electronically Signed By:Hillary Perez RN
[2017-08-30] MEDS ORDERED: BISACODYL 10 MG SUPP PR PRN (15:33)
[2017-08-30] MEDS ORDERED: LACTULOSE 20 GM/30 ML UDCUP PO PRN (15:33)
[2017-08-30] MEDS ORDERED: POLYETHYLENE GLYCOL 3350 17 GM PKT PO PRN (15:33)
[2017-08-30] MEDS ORDERED: MAGNESIUM HYDROXIDE 30 ML UDCUP PO PRN (15:33)
[2017-08-30] MEDS ORDERED: WARFARIN SODIUM 5 MG TAB PO ONE (16:00)
--- NOTE | 2017-08-30 18:40 | GCON ---
[f rep st] CONSULTATION This is an 81-year-old female with a past medical history significant for coronary artery disease sta tus post CABG, ischemic cardiomyopathy, EF of 25% status post ICD, diabetes, obstructive sleep apnea, depression, Meniere disease, remote history of breast cancer, who came into the emergency room with complaints of left flank pain, along with some nausea and vomiting. The patient also mentions that s he has not been feeling well and feels very confused. However, on further questioning, she mentions that this is a chronic state. She also mentioned shortness of breath, but then again mentions that t his is a chronic shortness of breath and this is not new. She notices bilateral neck and shoulder bl isaias pain. She notes that she develops a little bit of left arm pain. No increase in her pedal edema . Chronic lightheadedness since 40 years. The patient was recently started on BuSpar. REVIEW OF SYSTEM: Other than above, negative 10-point review of systems. ALLERGIES: Penicillin, propoxyphene, Celexa, and hydrocodone. HOME MEDICATIONS: Venlafaxine. Torsemide 10 mg daily. Crestor 10 mg daily. Lispro t.i.d. Sliding scale. Lantus 20 units subcu b.i.d. Vitamin D 2000 units daily. Coreg 6.25 b.i.d. Aspirin 81 mg da john. Arimidex 1 mg daily. Tylenol 500 q.6 hours p.r.n. Xanax 0.5 mg p.r.n. for anxiety. Losartan 12.5 mg half tablet daily. Potassium chloride. PAST MEDICAL HISTORY: Ischemic cardiomyopathy, EF of 25%. ICD, [employer] Th[employer]. Coronary artery disease, ,status post CABG. Diabetes type 2. Hypertension. Obstructive sleep apnea. CHF. Breast cancer. GERD. Depression. Meniere disease. Right bundle branch block. PAST SURGICAL HISTORY: Lumpectomy, AICD placement, CABG, CEA, hysterectomy, cataract surgery. FAMILY HISTORY: Coronary artery disease and diabetes. SOCIAL HISTORY: Lives with her daughter and son. Does not smoke or drink. PHYSICAL EXAM: VITAL SIGNS: Blood pressure of 131/77, pulse of 82, respiratory rate 16, sat 94%. H EENT: Pupils equal, reacting to light and accommodating. Normocephalic, atraumatic. EYES: Extraoc ular muscles are intact. Pupils equal, reacting to light and accommodating. No scleral icterus. EN T: Mucous membranes moist. No oropharynx or erythema. Dentition in fair condition. NECK: Supple. No JVD. CARDIOVASCULAR: Regular rate and rhythm. No rubs or gallops. Systolic ejection murmur n oted. LUNGS: Clear to auscultation. No rales, rhonchi, or rub. ABDOMEN: Soft and nontender. No guarding or rigidity. Bowel sounds present. EXTREMITIES: No edema. LAB: White count 11.3, creatinine 0.7. IMAGING: CT of the abdomen shows acute renal infarct. Atherosclerotic changes in the abdominal vasc ulature. No evidence of aneurysm. Post cholecystectomy. CT of the chest shows hiatal hernia, cardiomegaly, no pericardial effusion. Chest x-ray: Questionable minimal pleural effusions. EKG shows a sensed V-paced rhythm. IMPRESSION AND PLAN: 1. This is an 81-year-old female with coronary artery disease status post coronary artery bypass gra ft, ischemic cardiomyopathy, implantable cardioverter-defibrillator, who comes in with left flank luis n, which appears to be related to an acute renal infarct. The etiology of acute renal infarct is unk nown. The patient's past records were evaluated by me. Her [employer] Th[employer] ICD had atrial tachycardia vers us atrial flutter about a month and a half back. One wonders if this atrial flutter, now especially after this infarct, dictates the need for oral anticoagulation. In her case, Coumadin may be better considering multiple admissions and fluctuating creatinine levels. I will further ask for evaluation of her [employer] Th[employer] ICD. 2. Congestive heart failure. She does not appear to be in congestive heart failure despite high BNP . It has been noted by Dr. Morataya that her BNP remains high despite being euvolemic. Hence, no manzo es to her diuretic dose needs to be made at this point in time. 3. Coronary artery disease. She appears to be stable from this standpoint. No changes are needed. Thank you for letting us participate in the patient's care. We will continue to follow the patient w wan velez. /[id number]/MODL
[2017-08-30] MEDS: SENNOSIDES/DOCUSATE SODIUM TAB PO SCH (20:26)
[2017-08-30] MEDS: ROSUVASTATIN CALCIUM 10 MG TAB PO SCH (20:27)
[2017-08-31] MEDS: INSULIN LISPRO 100 UNIT/ML SC SCH ×4 (07:54→18:45)
[2017-08-31 09:03] LABS: INR 1.26 (0.83-1.16)
[2017-08-31] MEDS: VENLAFAXINE XR 150 MG CAP PO SCH ×2 (09:45→21:03)
[2017-08-31] MEDS: ENOXAPARIN 60 MG/0.6 ML SYR SC SCH ×2 (09:45→21:04)
[2017-08-31] MEDS: SENNOSIDES/DOCUSATE SODIUM TAB PO SCH ×2 (09:46→21:08)
[2017-08-31] MEDS: ASPIRIN 81 MG CHEWABLE TAB PO SCH (09:46)
[2017-08-31] MEDS: SPIRONOLACTONE 25 MG TAB PO SCH (09:46)
[2017-08-31] MEDS: ANASTROZOLE 1 MG TAB PO SCH (09:46)
[2017-08-31] MEDS: busPIRone 5 MG TAB PO SCH ×2 (09:46→21:04)
[2017-08-31] MEDS: CARVEDILOL 6.25 MG TAB PO SCH ×2 (09:54→21:04)
[2017-08-31] MEDS: LOSARTAN POTASSIUM 25 MG TAB PO SCH (09:54)
[2017-08-31] MEDS: TORSEMIDE 20 MG TAB PO SCH (09:55)
--- NOTE | 2017-08-31 11:24 | PDCARPN ---
Cardiology Progress Note Assessment/Plan: Assessment: Acute Renal Infarct Etiology unknown. Pacer interrogation showed no A Fib or flutter. Coumadin to be started for anticoagulation. CAD with CABG no anginal symptoms. R/O Aflutter by Pacer interrogation today--[employer] Th[employer] device. Left lead dislodged. Reviewed with Dr Vega. Plan for left lead revision in 4 to 6 weeks. CHF--- Has been evaluated by Dr Morataya in clinic-- She runs a high BNP despite being euvolemic. Orthostatic Hypotension-- Her BP will drop from S-110 to S 80 with position changes. Coreg and Losartan on hold. Plan: Device ICD- interrogation today-- This was Done showing no A Fib or Flutter as cause for embolic event to kidney. 08/31/17 11:21 08/31/17 17:57 Subjective: I get lightheaded when I get up. Reviewed/Discussed With: family, hospitalist, multidisciplinary team Time Spent with Patient: greater than 25 minutes Time Spent with Patient: Greater than 25 minutes spent on this patients care, greater than 50% of time spent counseling, educating, and coordinating care regarding the above mentioned plan. Objective: Vital Signs (8 Hrs) Temp Pulse Resp BP Pulse Ox 08/31/17 07:46 36.6 C 72 17 107/67 97 08/31/17 04:00 36.9 C 71 21 H 96/65 L 100 Intake/Output (24 Hrs) 08/30/17 08/31/17 09/01/17 05:59 05:59 05:59 Intake Total 800 900 Output Total 550 1200 200 Balance 250 -300 -200 Intake: Oral (ml) 800 900 Output: Urine (ml) 550 1200 200 Toilet 550 1200 200 Other: Weight 60.1 kg 60.044 kg Intake Quantity Yes Sufficient Number of Voids Toilet 1 Result Diagrams: 08/30/17 03:35 08/31/17 03:30 - Physical Exam Constitutional: no apparent distress Cardiovascular: regular rate and rhythm, no murmurs, no rubs, no gallops Respiratory: clear to auscultate bilat, no crackles, no wheezes Gastrointestinal: no tenderness Skin: warm, no edema Neurologic: AAOx3 Psychiatric: cooperative, interactive ICD10 Worksheet Patient Problems: Problems Problem Status Onset Elevated troponin Acute Dizziness Acute Hyperkalemia Acute Renal insufficiency Acute Cardiomyopathy Acute Kidney infarction Acute Dehydration Acute Diarrhea Acute Acute blood loss anemia Acute S/P CABG x 4 Acute ~11/03/16 Dilated cardiomyopathy Chronic CAD, multiple vessel Chronic
--- NOTE | 2017-08-31 14:02 | HOSPPROG ---
Hospitalist Progress Note Assessment/Plan: DIAGNOSES: # ACUTE RENAL INFARCT, PRESUMABLY EMBOLIC IN PATIENT WITH HISTORY OF AFIB * Preserved renal function at this time; pain decreasing on therapy # ORTHOSTATIC HYPOTENSION, SYMPTOMATIC, WITH KNOWN HISTORY OF FREQUENT FALLING AT HOME RECENTLY, AND NOW REQUIRING ANTICOAGULATION * Symptoms and low numbers persist despite discontinuation so far of Lasix, Coreg, and losartan, though she has been getting her Aldactone # ISCHEMIC CARDIOMYOPATHY WITH KNOWN EJECTION FRACTION OF 25% CURRENT ECHO * Appears stable at this time # CHRONIC ATRIAL FIBRILLATION, HAS NOT BEEN ANTICOAGULATED PAST PRESUMABLY DUE TO FALL RISK BUT NOW WITH SIGNIFICANT EMBOLIC EPISODE * Stable rate control with pacer in place * Chads Vasc score 5 # ACUTE HYPOXEMIC RESPIRATORY FAILURE MULTIFACTORIAL # SIGNIFICANT HYPOGLYCEMIA NOCTURNALLY HERE ALONG WITH HYPERGLYCEMIA POSTPRANDIALLY, NUMBERS AT HOME UNCERTAIN * The hypoglycemia has improved notably with discontinuation of her long-acting insulin but the sugars are now high # FRANKY - CPAP PLANS: * will need more time here to titrate her blood pressures and blood sugars to keep her out of trouble after discharge so will continue inpatient care * At this time will stop all of her diuretic and continue off the Coreg and losartan, however will need to get Cardiology involved to see how we can keep her from developing exacerbation of heart failure without falls due to orthostasis. This may be very difficult. * Will resume a lower dose of long-acting insulin and revamped her short-acting insulin as it is being given here, follow sugars closely major goal to avoid low sugars but to gain overall better control. Her goals for glycemia can be reasonably modest given her age and comorbidities in order to avoid dangers low sugars. The benefit of tight sugar control is limited in this patient * Continue current treatment for atrial fibrillation but may need to do more for rate control over time if we cannot get her safely back on beta-imelda * Continue current anticoagulation follow INRs * Continue current management of sleep apnea Patient seen by me on both hospitalists and multidisciplinary rounds Cardiology consulted SUBJECTIVE: Continues to have episodes of lightheadedness and dizziness particularly with standing and has orthostatic numbers with standing Her flank pain from her infarct is improving notably OBJECTIVE Vitals reviewed: Still quite a bit of hypotension and orthostasis otherwise stable no fever Glass Unloading Equipment Tender, my review: Intermittent sinus and AFib, with ventricular pacing Exam: alert oriented skin warm dry color ok resps not labored lungs clear BSs heart regular abd soft nondistended nontender, bowel sounds present limbs warm, minimal edema at present iv site ok Lab data: The low sugars seen in the mornings and during the night have disappeared with discontinuation of her long-acting insulin but she now has around the clock significant hyperglycemia so we need correction from both the high and low ends Renal function and electrolytes in good range so far INR 1.2 Objective: Vital Signs Temp Pulse Resp BP Pulse Ox 36.5 C 73 17 107/71 99 08/31/17 11:37 08/31/17 11:37 08/31/17 11:37 08/31/17 11:37 08/31/17 11:37 Laboratory Results 08/30/17 03:35 08/31/17 03:30 08/30/17 08/31/17 09/01/17 06:59 06:59 06:59 Intake Total 1400 300 Output Total 550 1200 200 Balance 850 -900 -200 PT 16.0 SEC (12.0-15.0) H 08/31/17 08:44 INR 1.26 (0.83-1.16) H 08/31/17 08:44 - Time Spent With Patient Time Spent with Patient: greater than 35 minutes Time Spent with Patient: Greater than 35 minutes spent on this patients care, greater than 50% of time spent counseling, educating, and coordinating care regarding the above mentioned plan. ICD10 Worksheet Patient Problems: Problems Problem Status Onset Dehydration Acute Diarrhea Acute Kidney infarction Acute Acute blood loss anemia Acute Cardiomyopathy Acute Dizziness Acute Elevated troponin Acute Hyperkalemia Acute Renal insufficiency Acute S/P CABG x 4 Acute ~11/03/16 CAD, multiple vessel Chronic Dilated cardiomyopathy Chronic
[2017-08-31] MEDS ORDERED: DEXTROSE PO PRN (14:20)
[2017-08-31] MEDS ORDERED: [UNRECOGNIZED DRUG - OTHER] PO PRN (14:20)
[2017-08-31] MEDS ORDERED: WARFARIN SODIUM 5 MG TAB PO ONE ×2 (16:00)
[2017-08-31] MEDS: ROSUVASTATIN CALCIUM 10 MG TAB PO SCH (21:04)
[2017-08-31] MEDS: INSULIN GLARGINE 100 UNITS/ML UNIT SC SCH (22:09)
[2017-09-01 04:18] LABS: INR 2.1 (0.83-1.16); PROTIME(PATIENT) 23.6 SEC (12.0-15.0)
[2017-09-01] MEDS: ANASTROZOLE 1 MG TAB PO SCH (07:55)
[2017-09-01] MEDS: LOSARTAN POTASSIUM 25 MG TAB PO SCH (07:55)
[2017-09-01] MEDS: VENLAFAXINE XR 150 MG CAP PO SCH ×2 (07:55→20:45)
[2017-09-01] MEDS: ASPIRIN 81 MG CHEWABLE TAB PO SCH (07:56)
[2017-09-01] MEDS: SENNOSIDES/DOCUSATE SODIUM TAB PO SCH ×2 (07:56→20:45)
[2017-09-01] MEDS: busPIRone 5 MG TAB PO SCH ×2 (07:56→20:45)
[2017-09-01] MEDS: ENOXAPARIN 60 MG/0.6 ML SYR SC SCH ×2 (07:57→20:49)
[2017-09-01] MEDS: CARVEDILOL 6.25 MG TAB PO SCH (07:57)
[2017-09-01] MEDS: INSULIN LISPRO 100 UNIT/ML SC SCH ×6 (07:58→17:52)
--- NOTE | 2017-09-01 13:32 | HOSPPROG ---
Hospitalist Progress Note Assessment/Plan: DIAGNOSES: # ACUTE RENAL INFARCT, PRESUMABLY EMBOLIC IN PATIENT WITH HISTORY OF AFIB * Preserved renal function at this time; pain decreasing on therapy # ORTHOSTATIC HYPOTENSION, SYMPTOMATIC, WITH KNOWN HISTORY OF FREQUENT FALLING AT HOME RECENTLY, AND NOW REQUIRING ANTICOAGULATION * Symptoms now notably bladder and blood pressure is notably better off of beta- imelda, THERESA I, and diuretics, however this leaves her at risk with her heart disease # VENTRICULAR TACHYCARDIA noted on interrogation of her pacemaker * Asymptomatic but this is concerning as we have now stopped beta-imelda due to her symptoms as above # 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 * She is successfully pacing right now, and it is not felt that there is an urgency to correct this but plan to her trying correct this in several weeks when she is over her acute episode # ISCHEMIC CARDIOMYOPATHY WITH KNOWN EJECTION FRACTION OF 25% CURRENT ECHO * Appears stable at this time # CHRONIC ATRIAL FIBRILLATION, HAS NOT BEEN ANTICOAGULATED PAST PRESUMABLY DUE TO FALL RISK BUT NOW WITH SIGNIFICANT EMBOLIC EPISODE * Stable rate control with pacer in place * Chads Vasc score 5 # ACUTE HYPOXEMIC RESPIRATORY FAILURE MULTIFACTORIAL # DIABETES MELLITUS: SIGNIFICANT HYPOGLYCEMIA NOCTURNALLY HERE ALONG WITH HYPERGLYCEMIA POSTPRANDIALLY, NUMBERS AT HOME UNCERTAIN * The hypoglycemia has improved notably with discontinuation of her long-acting insulin but the postprandial sugars remain high # FRANKY - CPAP PLANS: * Await Cardiology evaluation and recommendations regarding medications for maintaining compensation of her heart disease while avoiding orthostatic symptoms and fall risk * Continue lower dose of long-acting insulin and and will begin titrating her short-acting insulin up follow closely. Her goals for glycemia can be reasonably modest given her age and comorbidities in order to avoid dangers low sugars. The benefit of tight sugar control is limited in this patient * Continue current treatment for atrial fibrillation but may need to do more for rate control over time if we cannot get her safely back on beta-imelda * Her INR has jumped quite quickly overnight, will need to use notably lower doses and continue to follow closely * Continue current management of sleep apnea Patient seen by me on both hospitalists and multidisciplinary rounds I reviewed today with Sada Bradford of cardiology SUBJECTIVE: Feels notably better today with less lightheadedness and dizziness, ambulating more easily though does get fatigued with ambulation, no dyspnea. She is eating a little better Very little in the way of any remaining flank pain OBJECTIVE Vitals reviewed: Blood pressure is now in ideal range with no other vital sign abnormalities Account Technician, my review: Sinus with PACs, ventricular pacing Exam: alert oriented skin warm dry color ok resps not labored lungs clear BSs heart regular abd soft nondistended nontender, bowel sounds present limbs warm, minimal edema at present iv site ok Lab data: No repeat of hypoglycemia sugars in reasonably good range in the morning still high postprandially so some room for further increase in postprandial therapy INR 2.1 up from 1.2 yesterday Objective: Vital Signs Temp Pulse Resp BP Pulse Ox 36.6 C 68 18 98/62 L 93 09/01/17 12:00 09/01/17 12:00 09/01/17 12:00 09/01/17 12:00 09/01/17 12:00 Laboratory Results 08/30/17 03:35 09/01/17 03:22 08/31/17 09/01/17 09/02/17 06:59 06:59 06:59 Intake Total 300 1200 Output Total 1200 900 Balance -900 300 PT 23.6 SEC (12.0-15.0) H 09/01/17 03:22 INR 2.10 (0.83-1.16) H 09/01/17 03:22 - Time Spent With Patient Time Spent with Patient: greater than 35 minutes Time Spent with Patient: Greater than 35 minutes spent on this patients care, greater than 50% of time spent counseling, educating, and coordinating care regarding the above mentioned plan. ICD10 Worksheet Patient Problems: Problems Problem Status Onset Dehydration Acute Diarrhea Acute Kidney infarction Acute Acute blood loss anemia Acute Cardiomyopathy Acute Dizziness Acute Elevated troponin Acute Hyperkalemia Acute Renal insufficiency Acute S/P CABG x 4 Acute ~11/03/16 CAD, multiple vessel Chronic Dilated cardiomyopathy Chronic
--- NOTE | 2017-09-01 14:54 | ASMTCMCOM ---
CM Note CM Note Notes: 09/01/2017 Case Management Note Discussed pt during rounds this morning. Daughter Ela [phone] present during rounds. PT has discharged pt from service and is recommending home with 06/10 supervision. Family to provide support at d/c. Case Management d/c poc: home with family support and follow up as directed. Case Management available if needs change. Date Signed: 09/01/2017 02:54 PM Electronically Signed By:Rachelle Fischer RN
--- NOTE | 2017-09-01 15:31 | PDCARPN ---
Cardiology Progress Note Assessment/Plan: Assessment: Acute Renal Infarct Etiology unknown. Pacer interrogation showed no A Fib or flutter. Coumadin to be started for anticoagulation. CAD with CABG no anginal symptoms. R/O Aflutter by Pacer interrogation today--[employer] device. Left lead dislodged. Reviewed with Dr Vega. Plan for left lead revision in 4 to 6 weeks. CHF--- Has been evaluated by Dr Morataya in clinic-- She runs a high BNP despite being euvolemic. Orthostatic Hypotension-- Her BP will drop from S-110 to S 80 with position changes. Coreg and Losartan on hold. Plan: Device ICD- interrogation today-- This was Done showing no A Fib or Flutter as cause for embolic event to kidney. 08/31/17 11:21 09/01/17 15:19 Continues on Coumadin for anticoagulation. INR today 2.1. CAD with no anginal symptoms. She did get her Coreg, Losartan, and Aldactone this AM. Medication adjustments due to hypotension (98/62) post medications. Will decrease Coreg to 3.125 mg BID. HOLD both Losartan and Spironolactone. Will re-evaluate in AM based on BP response, and fluid accumulation. Lungs sound clear this afternoon. She was able to go for walk in [place] and tolerated it fairly well. She said she was tired by the end and "a little" SOB. She is not having the dizziness or lightheadedness this afternoon. She is a bit concerned about the Left lead dislodgement. Reassurance given that Dr Vega reviewed the CXR and the pacemaker testing. Will get Echocardiogram in AM if not done this admission. Her daughter and Son were in room at time of visit. All questions answered. Subjective: I feel good sitting in bed. Tolerated walk good. No dizziness with walk. Reviewed/Discussed With: family, hospitalist, multidisciplinary team Time Spent with Patient: greater than 25 minutes Time Spent with Patient: Greater than 25 minutes spent on this patients care, greater than 50% of time spent counseling, educating, and coordinating care regarding the above mentioned plan. Objective: Vital Signs (8 Hrs) Temp Pulse Resp BP Pulse Ox 09/01/17 12:00 36.6 C 68 18 98/62 L 93 09/01/17 08:00 36.6 C 73 18 110/65 93 Intake/Output (24 Hrs) 08/31/17 09/01/17 09/02/17 05:59 05:59 05:59 Intake Total 900 1200 Output Total 1200 900 Balance -300 300 Intake: Oral (ml) 900 1200 Output: Urine (ml) 1200 900 Toilet 1200 900 Other: Weight 60.044 kg 60.1 kg Number of Voids Toilet 1 1 Number of Stools Toilet 3 Result Diagrams: 08/30/17 03:35 09/01/17 03:22 - Physical Exam Constitutional: no apparent distress Cardiovascular: regular rate and rhythm, no murmurs, no rubs Respiratory: no crackles, no wheezes Gastrointestinal: no tenderness Skin: warm, no edema Neurologic: AAOx3 Psychiatric: cooperative, interactive ICD10 Worksheet Patient Problems: Problems Problem Status Onset Elevated troponin Acute Dizziness Acute Hyperkalemia Acute Renal insufficiency Acute Cardiomyopathy Acute Kidney infarction Acute Dehydration Acute Diarrhea Acute Acute blood loss anemia Acute S/P CABG x 4 Acute ~11/03/16 Dilated cardiomyopathy Chronic CAD, multiple vessel Chronic
[2017-09-01] MEDS ORDERED: WARFARIN SODIUM 2.5 MG TAB PO ONE (16:00)
[2017-09-01] MEDS: CARVEDILOL 3.125 MG TAB PO SCH (17:51)
[2017-09-01] MEDS: ROSUVASTATIN CALCIUM 10 MG TAB PO SCH (20:45)
[2017-09-01] MEDS: INSULIN GLARGINE 100 UNITS/ML UNIT SC SCH (22:14)
[2017-09-02 04:26] LABS: INR 2.86 (0.83-1.16); PROTIME(PATIENT) 29.9 SEC (12.0-15.0)
[2017-09-02 07:37] VITALS: BP 117/82
[2017-09-02] MEDS: ENOXAPARIN 60 MG/0.6 ML SYR SC SCH (08:37)
[2017-09-02] MEDS: busPIRone 5 MG TAB PO SCH (08:37)
[2017-09-02] MEDS: VENLAFAXINE XR 150 MG CAP PO SCH (08:38)
[2017-09-02] MEDS: ANASTROZOLE 1 MG TAB PO SCH (08:38)
[2017-09-02] MEDS: INSULIN LISPRO 100 UNIT/ML SC SCH ×5 (08:38→12:09)
[2017-09-02] MEDS: ASPIRIN 81 MG CHEWABLE TAB PO SCH (08:38)
[2017-09-02] MEDS: CARVEDILOL 3.125 MG TAB PO SCH (08:38)
[2017-09-02] MEDS: SENNOSIDES/DOCUSATE SODIUM TAB PO SCH (08:40)
[2017-09-02] MEDS ORDERED: INSULIN LISPRO 100 UNIT/ML SC SCH (08:53)
--- NOTE | 2017-09-02 11:43 | PDCARPN ---
Cardiology Progress Note Assessment/Plan: Assessment: Acute Renal Infarct Etiology unknown. Pacer interrogation showed no A Fib or flutter. Coumadin to be started for anticoagulation. CAD with CABG no anginal symptoms. R/O Aflutter by Pacer interrogation today--[facility] [employer] device. Left lead dislodged. Reviewed with Dr Vega. Plan for left lead revision in 4 to 6 weeks. CHF--- Has been evaluated by Dr Morataya in clinic-- She runs a high BNP despite being euvolemic. Orthostatic Hypotension-- Her BP will drop from S-110 to S 80 with position changes. Coreg and Losartan on hold. Plan: Device ICD- interrogation today-- This was Done showing no A Fib or Flutter as cause for embolic event to kidney. 08/31/17 11:21 09/01/17 15:19 Continues on Coumadin for anticoagulation. INR today 2.1. CAD with no anginal symptoms. She did get her Coreg, Losartan, and Aldactone this AM. Medication adjustments due to hypotension (98/62) post medications. Will decrease Coreg to 3.125 mg BID. HOLD both Losartan and Spironolactone. Will re-evaluate in AM based on BP response, and fluid accumulation. Lungs sound clear this afternoon. She was able to go for walk in [place] and tolerated it fairly well. She said she was tired by the end and "a little" SOB. She is not having the dizziness or lightheadedness this afternoon. She is a bit concerned about the Left lead dislodgement. Reassurance given that Dr Vega reviewed the CXR and the pacemaker testing. Will get Echocardiogram in AM if not done this admission. Her daughter and Son were in room at time of visit. All questions answered. 09/02/17 11:33 Feeling much better this morning. Her BP is great with SBP 114. She does not feel as "spacey" today. She is not currently on Diuretic medication. Advised to weigh daily and monitor for increased fluid retention. She will take a dose of Demadex tomorrow. Should her weight go up she will continue the Demadex. She has appointment at [facility] in one week. At that time it will be a consideration to add back Spironolactone. She does have the appointment for follow up with Dr Vega in clinic and for the Lead Revision. Today she has no lightheadedness, dizziness, or the fatigue feeling. She feels steady when she walks today. She will have Home Care visits. Stable for discharge. Subjective: I feel much better today. I feel alert today. Reviewed/Discussed With: multidisciplinary team Time Spent with Patient: greater than 25 minutes Time Spent with Patient: Greater than 25 minutes spent on this patients care, greater than 50% of time spent counseling, educating, and coordinating care regarding the above mentioned plan. Objective: Vital Signs (8 Hrs) Temp Pulse Resp BP Pulse Ox 09/02/17 07:36 36.4 C 75 16 117/82 H 90 L 09/02/17 03:48 36.8 C 70 16 115/62 92 Intake/Output (24 Hrs) 09/01/17 09/02/17 09/03/17 05:59 05:59 05:59 Intake Total 1200 950 Output Total 900 300 Balance 300 650 Intake: Oral (ml) 1200 950 Output: Urine (ml) 900 300 Toilet 900 300 Other: Weight 60.1 kg 60.509 kg Intake Quantity Yes Sufficient Number of Voids Toilet 1 1 Number of Stools Toilet 3 1 Result Diagrams: 08/30/17 03:35 09/01/17 03:22 - Physical Exam Constitutional: no apparent distress Cardiovascular: regular rate and rhythm, no murmurs, no rubs, other (paced) Respiratory: clear to auscultate bilat, no crackles, no wheezes Neurologic: AAOx3 Psychiatric: cooperative, interactive ICD10 Worksheet Patient Problems: Problems Problem Status Onset Elevated troponin Acute Dizziness Acute Hyperkalemia Acute Renal insufficiency Acute Cardiomyopathy Acute Kidney infarction Acute Dehydration Acute Diarrhea Acute Acute blood loss anemia Acute S/P CABG x 4 Acute ~11/03/16 Dilated cardiomyopathy Chronic CAD, multiple vessel Chronic
--- NOTE | 2017-09-02 21:08 | PDDCSUM ---
Discharge Summary Discharge Summary: DISCHARGE DIAGNOSES: -acute renal infarct likely embolic from atrial fibrillation -chronic atrial fibrillation not previously on anticoagulation due to multiple falls at home -significant hypotension and orthostasis noted here in this admission, markedly improved with decrease in some of her cardiac medications -significant hypoglycemic episodes with type 2 diabetes on insulin -recent episode of ventricular tachycardia incidentally noted on interrogation of her pacemaker, which had been asymptomatic -identification of improper attachment of 1 of her pacer leads on pacemaker interrogation - CONSULTANTS: [facility] PROCEDURES: Echocardiogram Pacemaker interrogation HOSPITAL COURSE SUMMARY: This patient came in with flank pain which was identified as a renal infarct. She has known atrial fibrillation and was not taking anticoagulation because a history of frequent falls at home. She was started on anticoagulation here in the plans will be to continue anticoagulation indefinitely. She will maintained good renal function at this time, her pain is resolving with anticoagulation, and she has had no complications of anticoagulation. Incidentally while she was here it was noted that she has significant orthostasis and resting hypotension while on her cardiac medicines. These included losartan torsemide Aldactone and Coreg. In order to get her orthostatic symptoms and blood pressures in reasonable range we had to discontinue the torsemide the Aldactone the losartan and we had to decrease the Coreg dose. With these changes she is now having normal blood pressures without orthostatic symptoms and is now walking much more easily and with much less fall risk based on our observe a shins here. She has not developed any signs of congestive heart failure here. This however will need to be watched very closely due to her severe cardiac disease which she is demonstrate is having ejection fraction approximately 20% by echo at this time. Also incidentally noted on interrogation of her pacemaker at this time was a recent episode of ventricular tachycardia and that 1 of her pacemaker leads was not showing a functional attachment. She is going to continue on beta-imelda treatment. She is pacing well enough to avoid any bradycardias at this time. Plans will be to reattached her pacer lead in approximately 1 month provided overall stability. She will follow up with Dr. Vega for this. Additionally the patient had severe hypoglycemic episodes here with her diabetic treatment initially ordered for the same dosing that she uses at home. The lowest sugar we observed here was 40 early in the morning. This included Lantus insulin 20 twice daily and NovoLog 20 three times daily with meals at home. On talking with her she did have notable symptoms of nocturnal and other hypoglycemia at home, and I suspect that her hypoglycemia may have also been contributing to her fall risk. Here in the hospital we decreased her Lantus insulin to 3 units at nighttime, and for the last 3 days her fasting morning sugars are between 140 and 180. We have also significantly decreased her short- acting insulin to currently 8 units before meals with a small sliding scale. Is recommended to her that her target sugars be approximately 150-180 at home at this time but she will need to be watching as she will have changes in activity and diet levels as she goes home. Is recommended that she start off with 8 units three times daily with meals short-acting NovoLog and gradually titrate these doses up or down to trying meet the target of 150-180 on a regular basis. Is recommended that she not use a sliding scale with her meals at this time. Is also recommended that she continue her 3 units of Lantus at night and again shooting for a target of 150-180 gradually increase or decrease the Lantus dose to get to that target. PENDING TEST RESULTS: None MEDICATION CHANGES: Discontinuation of torsemide and spironolactone Discontinuation of losartan Decrease in Coreg to 3.25 mg twice daily Decrease in Lantus from 20 units twice daily to 3 units at night. Decrease in NovoLog from 20 units plus sliding scale with meals to 8 units before meals without sliding scale, and she will gradually change her Lantus and NovoLog to try to achieve blood sugars in the range of 150-180 without significant low sugars. FOLLOW-UP PLAN: In [facility] in Cardiology within [address] Alberto Vega in 1 month With her primary care physician for review of blood sugars within 2 weeks Greater than 35 minutes bedside and care coordination time today
--- NOTE | 2017-09-02 21:45 | PDIAF ---
- Diagnosis Diagnosis: Renal Infarction; Orthostatic Hypotension Code Status: Full Code - Medication Management Discharge Medications: Medications to Continue on Transfer Cholecalciferol Vit D3 [Vitamin D3 (*)] 1,000 units PO HS 09/29/13 [Last Taken 03/24/17] Rosuvastatin Calcium [Crestor] 10 mg PO HS 09/29/13 [Last Taken 03/24/17] Anastrozole [Arimidex 1 mg (*)] 1 mg PO DAILY 10/31/16 [Last Taken 03/24/17] Venlafaxine HCl [Venlafaxine HCl ER] 150 mg PO BID 10/31/16 [Last Taken 21:00] Aspirin [Aspirin 81mg (*)] 81 mg PO DAILY #0 tab.chew 11/15/16 [Last Taken 03/24] Acetaminophen [Tylenol ES 500 mg (*)] 500 mg PO Q6 PRN 03/18/17 [Last Taken 12/01] Herbals/Supplements -Info Only 1 ea PO DAILY 03/18/17 [Last Taken 03/18/17] busPIRone [Buspar (*)] 5 mg PO BID 08/28/17 [Last Taken Unknown] Dextrose [Glucose] 4.5 gm PO PRN PRN 08/30/17 [Last Taken Unknown] Carvedilol [Coreg (*)] 3.125 mg PO BIDMEAL #60 tab 09/02/17 [Last Taken Unknown] Insulin Glargine [Lantus Syringe] 3 units SC HS unit 09/02/17 [Last Taken Unknown] Insulin Lispro [HumaLOG LISPRO] 8 unit SC TIDMEAL unit 09/02/17 [Last Taken Unknown] Warfarin Sodium [Coumadin 2MG (*)] 2 mg PO DAILY16 #60 tab 09/02/17 [Last Taken Unknown] Discharge Medications: Refer to the Discharge Home Medication list for PRN reason. - Orders Services needed: Home Care, Registered Nurse, Physical Therapy Home Care Face to Face: I certify that this patient was under my care and that I had the required adsi-an-wnts encounter meeting the encounter requirements on the discharge day. My findings support the fact that the patient is homebound as defined in Home Care Face to Face Continued: CMS Chapter 7 Medicare Benefits Manual 30.1.1 , The condition of the patient is such that there exists a normal inability to leave home and consequently, leaving home would require a considerable and taxing effort. Diet Recommendation: cardiac -low fat low salt, ADA 2000 consistent carb Diet Texture: Regular Texture Diet Additional Instructions: Make an appoint to see Dr. Morataya or his billing assistant next week in Cardiology Clinic Keep your appointment to see Dr. Vega in electrophysiology Clinic next month Continue to monitor blood sugars fasting in the morning as well as before each meal and at bedtime Your blood sugar goals should be 150-180; you will not be able to keep all of your sugars within that range, but as many as she can is the goal. It is very important to avoid low blood sugars. If your fasting sugars in the morning are repeatedly high over time, you should increase your nighttime Lantus dose 1-2 units, and follow this sugars for a couple weeks to see if he get the desired response. If the morning fasting sugars are still high you may need further increase in Lantus over time. Likewise if the morning sugars are lower than 150 repeatedly, then you may need a smaller dose of Lantus. Do not use a sliding scale of short-acting insulin the way you have been using it. If here fasting sugars are high before lunch, then this is caused by not enough insulin given with her breakfast. Likewise, not enough insulin with year lunch will cause a high sugar at dinnertime, and not enough insulin with dinner will cause a high sugar at bedtime. If you find that year sugars are repeatedly high at lunchtime, then you may need to be taking a higher dose of short-acting insulin with your breakfast, and likewise higher sugars at dinnertime or at bedtime may require over time higher doses of insulin with your lunch and dinner dinner respectively. These are adjustments that should be made slowly over time based on trans. It may be that you could use a sliding scale of insulin based not on what year immediate sugar is to try and fix that sugar, but instead to try and gradually correct year response to certain specific foods. You may be able to keep track of your high sugars and write down what you ate at the previous meal. This may help you determine over time whether certain meals or certain foods might require a bigger dose of insulin to be given with the meal. If your sugars are staying in range regardless of what meals you eat you would not need to bother with this extra effort. - Labs/Radiology PT/INR Date: 09/04/17 (Will also need to be sampled on September 07) Call or Fax Lab and Imaging Results to: Lab results to Dr. Hernandez Morataya at [facility] - Follow Up Care Current Providers and Referrals: Hernandez Morataya MD [Medical Doctor] - Sada Bradford CNP [Certified Nurse Practioner] - 09/09/17 2:15 pm Placido Fontanez, [Primary Care Provider] - As per Instructions
--- NOTE | 2017-09-03 08:56 | ASDISCHSUM ---
Discharge Information Plan Status:Home with Home Health Medically Cleared to Leave:09/02/2017 Discharge Date:09/02/2017 02:06 PM D/C Disposition: ADT D/C Disposition:Home, Routine, Self-Care Projected Discharge Date:09/02/2017 11:00 AM Transportation at D/C: Discharge Delay Reason: Follow-Up Date:09/02/2017 11:00 AM Discharge Slot: Final Diagnosis: Placement Information Referral Type:*Home Health Care Services Referral ID:[id number] Provider Name:[facility] Address 1:[address] [address] Address 2: City:[place] Selection Factors: State:[place] Patient Contact Information Contact Name:DEEPA Relationship: Address:[address] City:[place] Alternate Phone: State/Zip Code:[place] [address] Email: Financial Information Financial Class:Medicare Advantage Plans Primary Plan Desc:[employer]EW[employer]UST[employer] MEDICARE Primary Plan Number:[id number] Secondary Plan Desc: Secondary Plan Number: Assessment Information [facility] CM Progress Note CM Note CM Note Notes: Pt admitted with renal infarct. Normally lives at home with her , son & daughter in law. OT recommending Home vs HHC vs SNF. PT recommending HHC vs SNF. Met with pt to discuss; pt interested in SNF, but does not want to stay overnight. States she would like more of an "outpatient day program". Discussed Outpatient Therapy vs HHC vs SNF. Pt would like to discuss options with her . List of SNFs provided to pt; pt states her son may be interested in visiting a few of them, particularly in the [facility] area. CM to followup. Date Signed: 08/30/2017 12:19 PM Electronically Signed By:Hillary Perez RN LACE LACE Length of stay for Answers: 4-6 days current admission Acuity / Level of Answers: Yes Care: Did the patient have an inpatient admission? Comorbidities - select Answers: Congestive heart failure all that apply Coronary Artery Disease Diabetes (uncontrolled or controlled) History of falls # of Emergency department Answers: 1-2 visits in the last 6 months Social determinants Answers: Mental health diagnosis (anxiety, depression, pers onality disorders, etc.) Score: 19 Date Signed: 09/03/2017 08:54 AM Electronically Signed By:DARLIN Keyes [facility] CM Progress Note CM Note CM Note Notes: 09/01/2017 Case Management Note Discussed pt during rounds this morning. Daughter Ela [phone] present during rounds. PT has discharged pt from service and is recommending home with 24/ supervision. Family to provide support at d/c. Case Management d/c poc: home with family support and follow up as directed. Case Management available if needs change. Date Signed: 09/01/2017 02:54 PM Electronically Signed By:Rachelle Fischer RN [facility] CM Progress Note CM Note CM Note Notes: Pt d/c yesterday. CM met w/ pt for dispo planning. Pt is requesting for HC services. Dr. Day is recommending pt have an RN to draw INR's on Thursday and Thursday. Pt did not have a preference on HC agencies. CM confirmed pts address and phone number. [facility] was able to accept. DC orders sent. CM available for changes. Plan: [facility]; PT, RN Date Signed: 09/03/2017 08:53 AM Electronically Signed By:DARLIN Keyes Intervention Information Intervention Type:*IM-Signed Date of Service:09/02/2017 10:57 AM Patient Type:Inpatient Staff Member:Debbie Israel Hours: Discipline: Severity: Comment:
== END 2017-09-02 14:06 | disposition home or self-care (01) | DRG 699 ==
LOC: F3E 08-28 12:54 → F2W 08-29 08:09
PROVIDERS: ADMIT Family Medicine; ATTEND Hospitalist
DX: N28.0 Ischemia and infarction of kidney (principal); E11.649 Type 2 diabetes mellitus with hypoglycemia without coma; I48.0 Paroxysmal atrial fibrillation; I47.2 Ventricular tachycardia; T82.190A Other mechanical complication of cardiac electrode, initial encounter; I95.1 Orthostatic hypotension; G47.33 Obstructive sleep apnea (adult) (pediatric); I10 Essential (primary) hypertension; K21.9 Gastro-esophageal reflux disease without esophagitis; H81.09 Meniere's disease, unspecified ear; I25.10 Atherosclerotic heart disease of native coronary artery without angina pectoris; D50.9 Iron deficiency anemia, unspecified; D63.8 Anemia in other chronic diseases classified elsewhere; F41.9 Anxiety disorder, unspecified; Z95.5 Presence of coronary angioplasty implant and graft; Z95.1 Presence of aortocoronary bypass graft; Z95.810 Presence of automatic (implantable) cardiac defibrillator; Z85.3 Personal history of malignant neoplasm of breast; Z79.4 Long term (current) use of insulin
CPT/HCPCS: 83605-PO; 84484-PO; 96365; 97116-GP; 97162-GP; 97166-GO; 97530-GO; 97530-GP; 97535-GO; J0696; J1650; J1815; J1940; J2405; J2550; Q9967